=== PATIENT | male | born 1960 | race Hispanic/Latino ===

== ENCOUNTER 2018-06-01 17:47 | Emergency (ER) | payer OTHER ==
[2018-06-01] MEDS ORDERED: ONDANSETRON 4 MG/2 ML VIAL ONE (18:55)
[2018-06-01] MEDS ORDERED: FENTANYL CITR 100 MCG/2 ML ONE (18:55)
[2018-06-01 19:03] LABS: Absolute Lymphocytes (CBC) 1.5 K/uL (0.7-4.9); Absolute Monocytes 0.8 K/uL (0.1-1.3); Absolute Neutrophil 5.9 K/uL (1.8-8.0); Basophils % 0.8 % (0-1.3); Eosinophils % 1.7 % (0-4.4); Hematocrit 43.3 % (39.6-49.0); Lymphocytes % 17.9 % (15.3-44.8); MPV 7.4 fL (7.6-11.3); Monocytes % 9.9 % (3.3-12.3); RBC Red Blood Cell Count 4.99 M/uL (4.33-5.43)
--- NOTE | 2018-06-01 19:09 | RAD REPORT ---
EXAM DESCRIPTION: RAD - Chest Single View - 06/01/2018 6:52 pm CLINICAL HISTORY: Diffuse abdominal pain radiating to the back COMPARISON: CT imaging May 19. TECHNIQUE: AP portable chest image was obtained 1847 hour . FINDINGS: Lung volumes are low. Right base opacification is present obscuring the right hemidiaphrag m and the right heart border. Patient has right hemidiaphragm elevation. Right base opacification may be chronic atelectasis. A small pleural effusion is suspected. Heart size is normal. Widening in the mediastinum is noted. Reason CT study showed significant lymphadenopathy pattern in the abdomen and pelvis. This mediastinal finding is likely lymphadenopathy as well. No measurable pleural effusion an d no pneumothorax. No acute bony abnormality seen. No acute aortic findings suspected. IMPRESSION: Small right pleural effusion is suspected. Right lung base opacification could be chroni c atelectasis or minimal pneumonia. Mediastinal mass density present presumed to be lymphadenopathy pattern similar to the CT abdomen fransisca jean
[2018-06-01 19:13] LABS: Protime INR 1.07
[2018-06-01 19:35] LABS: Albumin 3.3 g/dL (3.4-5.0); Alkaline Phosphatase 743 U/L (45-117); BUN Blood Urea Nitrogen 13 mg/dL (7-18); Bicarbonate 28 mmol/L (21-32); Bilirubin Direct 5.1 mg/dL (0-0.2); Glucose Level 92 mg/dL (74-106); Magnesium 1.9 mg/dL (1.8-2.4); NT PRO-BNP 23 pg/mL (<125); Potassium 3.8 mmol/L (3.5-5.1); Protein, Total 7.1 g/dL (6.4-8.2); Sodium Level 135 mmol/L (136-145); Troponin (Emerg Dept Use Only) < 0.02 ng/mL (0.0-0.045)
[2018-06-01 19:38] LABS: ALT/SGPT 541 U/L (12-78); AST/SGOT 307 U/L (15-37)
[2018-06-01 19:39] LABS: Bilirubin Total 6.1 mg/dL (0.2-1.0)
--- NOTE | 2018-06-01 20:22 | RAD REPORT ---
EXAM DESCRIPTION: CT - Chest Abdomen Pelvis W Cont - 06/01/2018 8:00 pm CLINICAL HISTORY: Abdominal pain, chest pain, abnormal CT abdomen COMPARISON: CT abdomen and pelvis May 19 TECHNIQUE: Following dynamic enhancement using 100 milliliters nonionic IV contrast, axial imaging o f the chest, abdomen and pelvis was performed. Biphasic technique was utilized through the abdomen. No oral contrast was administered. All CT scans are performed using dose optimization technique as appropriate and may include automated exposure control or mA/KV adjustment according to patient size. FINDINGS: Stranding changes are present in the right lung base where there is also elevated right he midiaphragm. This is believed to be scarring or chronic atelectasis. Acute infiltrate is not suspecte d. Lung torres are otherwise clear. Minimal bilateral pleural effusions are present. No pneumothorax. No pleural based mass. Aorta and pulmonary arterial tree enhance normally. No pericardial thickening or effusion. Patient has very extensive individual and confluent mediastinal and hilar lymphadenopathy. Patient has lymphadenopathy in the right side pericardial fat as well. Largest confluent mass densit y is subcarinal measuring 6 x 3 cm. No chest wall mass or axillary lymphadenopathy. Multiple abnormal lymph nodes are present at the bilateral base of the neck. The liver, spleen and pancreas show no new finding from the May 19 study. Portions of the pancre as are obscured. No biliary tree dilatation. Gallbladder wall is edematous. Gallstones can be occult on CT imaging. Renal function is symmetric. No acute GB finding. No adrenal abnormalities. Stomach is distended by fluid. No gastric wall thickening or mass. No dilated large or small bowel. M ild diverticulosis is present. The primary acute GI process is not confirmed. Congestion and edema are present along the omentum. There is an overall congestion or edema pattern t o the peritoneal fat. Trace amount of free fluid is present in the peritoneal cavity. The very large bulky central mesenteric lymphadenopathy pattern is again identified. Overall mass density is larger than seen 2 weeks earlier. Margins are less well demarcated and this may be due to edema. Lymphadenop athy extends further around the head of the pancreas and periportal region. No history provided to in dicate initiation of therapy for this presumed lymphoma. The congestion and edema could be a therapeu tic response. No acute or destructive bony process. No significant vascular findings. IMPRESSION: CT chest imaging shows extensive mediastinal and hilar lymphadenopathy as well as signif icant lymphadenopathy at each neck base. Minimal pleural effusions are present. There is scarring or chronic atelectasis abutting the elevated right hemidiaphragm. The massive central abdominal lymphadenopathy has enlarged from the May 19 study. The individual and confluent lymph nodes are more edematous with poorly demarcated margins compared to the prior st udy. This is potentially a therapeutic response but no history is available to indicate whether any t herapy has been initiated. No bowel obstruction, free air or surgically emergent finding. Gallbladder wall edema without biliary tree dilatation. Gallstones and duct stones can be occult on C T imaging.
--- NOTE | 2018-06-01 21:59 | ER ---
Nurse's Notes [facility] Name: Jimbo Phipps Age: 57 yrs Sex: Male : 1960 Arrival Date: 06/01/2018 Time: 17:52 Bed 16 Private MD: Diagnosis: Acute and subacute hepatic failure;Lymphoma Presentation: 06/01 18:12 Presenting complaint: Patient states: Diffuse abdominal pain that radiates to back x 2 ph weeks and abdominal bloating, also reports nausea and some diarrhea, denies vomiting or fever. Transition of care: patient was not received from another setting of care. Onset of symptoms was June 01, 2018. Risk Assessment: Do you want to hurt yourself or someone else? Patient reports no desire to harm self or others. Care prior to arrival: None. 18:12 Method Of Arrival: Ambulatory ph 18:12 Acuity: ANTONIO 3 ph 18:15 Initial Sepsis Screen: Does the patient meet any 2 criteria? No. Patient's initial tw2 sepsis screen is negative. Does the patient have a suspected source of infection? No. Patient's initial sepsis screen is negative. Historical: - Allergies: 18:14 No Known Allergies; ph - Home Meds: 22:00 None [Active]; ak1 - PMHx: 22:00 None; ak1 - PSHx: 22:00 None; ak1 - Immunization history:: Adult Immunizations unknown. - Social history:: Smoking status: Patient/guardian denies using tobacco. - Ebola Screening: : No symptoms or risks identified at this time. Screenin:15 Abuse screen: Denies threats or abuse. Nutritional screening: No deficits noted. tw2 Tuberculosis screening: No symptoms or risk factors identified. Fall Risk None identified. Assessment: 18:27 General: Appears in no apparent distress. uncomfortable, Behavior is calm, cooperative, tw2 appropriate for age. Pain: Complains of pain in abdomen. Neuro: Level of Consciousness is awake, alert, obeys commands, Oriented to person, place, time, situation. Cardiovascular: Heart tones S1 S2 Patient's skin is warm and dry. Respiratory: Airway is patent Respiratory effort is even, unlabored, Respiratory pattern is regular, symmetrical, Breath sounds are clear bilaterally. GI: Abdomen is round distended, Bowel sounds present X 4 quads. Abd is soft X 4 quads Reports lower abdominal pain, upper abdominal pain. : No signs and/or symptoms were reported regarding the genitourinary system. 18:27 EENT: No signs and/or symptoms were reported regarding the EENT system. Derm: No signs tw2 and/or symptoms reported regarding the dermatologic system. Skin is jaundiced. Musculoskeletal: Circulation, motion, and sensation intact. Range of motion: intact in all extremities. 18:36 Reassessment: provider JESSE Jasso at bedside. tw2 19:38 Reassessment: laboratory staff gavin relayed critical laboratory ASt rr5 [id number],[id number],Total bili6.1. ED provider aware. 21:01 Reassessment: Patient appears in no apparent distress at this time. Patient and/or ls4 family updated on plan of care and expected duration. Pain level reassessed. PT RESTING QUIETLY, FAMILY AT BEDSIDE. 21:51 Reassessment: Patient appears in no apparent distress at this time. Patient and/or ls4 family updated on plan of care and expected duration. Pain level reassessed. pt ambulated independently to bathroom. gate steady. NAD. Vital Signs: 18:13 BP 155 / 102; Pulse 97; Resp 18; Temp 97.8; Pulse Ox 95% on R/A; Weight 79.38 kg; ph Height 5 ft. 3 in. (160.02 cm); 19:02 BP 156 / 99; Pulse 91; Resp 20; Pulse Ox 92% on R/A; tw2 20:20 BP 152 / 88; Pulse 92; Resp 16; Pulse Ox 96% on R/A; ls4 18:13 Body Mass Index 31.00 (79.38 kg, 160.02 cm) ph 19:02 pt placed on o2 via nc at 2L, o2 at 96%, tw2 ED Course: 17:52 Patient arrived in ED. mr 18:12 Bed in low position. Call light in reach. Pulse ox on. NIBP on. tw2 18:13 Triage completed. ph 18:14 Arm band placed on Patient placed in an exam room. ph 18:15 Linda Reynoso, TOMI is Primary Nurse. tw2 18:30 Balta Ponce MD is Attending Physician. ciera 18:37 Regino Ramos PA is PHCP. jr8 18:37 Balta Ponce MD is Attending Physician. jr8 18:42 Radiology exam delayed due to lab results not completed at this time. (BUN/Creatinine). 2 18:49 EKG done, by ED staff, reviewed by eRgino MOLINA. [facility] 18:53 Radiology exam delayed due to lab results not completed at this time. (BUN/Creatinine). nj 18:53 XRAY Chest (1 view) In Process Unspecified. EDMS 19:21 Radiology exam delayed due to lab results not completed at this time. (BUN/Creatinine). 2 19:26 Report given to TOMI Yuan. tw2 19:36 Radiology exam delayed due to lab results not completed at this time. (BUN/Creatinine). nj 19:[address] via stretcher. al 20:00 CT Chest, Abdomen, Pelvis - W/Contrast In Process Unspecified. EDMN 20:00 CT completed. Patient tolerated procedure well. Patient moved back from CT. al 21:59 No provider procedures requiring assistance completed. ak1 22:01 Inserted saline lock: 20 gauge in left antecubital area, using aseptic technique. ak1 ,using aseptic technique. placed prior to this nurse taking over care. 22:02 Patient transferred, IV remains in place. ak1 Administered Medications: 18:47 Drug: Zofran 4 mg Route: IVP; Site: left antecubital; tw2 19:25 Follow up: Response: No adverse reaction tw2 18:50 Drug: fentaNYL (PF) 75 mcg Route: IVP; Site: left antecubital; tw2 19:25 Follow up: Response: No adverse reaction; Pain is decreased tw2 Outcome: 21:59 ER care complete, transfer ordered by . [facility] 22:02 Condition: stable ak1 22:02 Instructed on the need for transfer. 22:34 Transferred by ground EMS to [facility], Transfer form completed. ak1 X-rays sent w/ patient. Note: report given to Ana Lilai the nurse for room 910 on 9 tower 23:07 Patient left the ED. ak1 Signatures: Dispatcher [employer] EDMS Balta Ponce MD MD cha Rivera, Lianne mr Jeanniebhanujoseph, JESSE Lacy jr8 Renee Cutler RN RN ak1 Jeni Valdez RN RN Linda Reynoso RN RN 2 Thom Lange Maria [facility] CoeIsabell lizarraga 2 Lissy Alcantar RN RN ls4 Davonte Cortez RN RN rr5 Corrections: (The following items were deleted from the chart) 19:04 18:27 General: Appears in no apparent distress. Behavior is calm, cooperative, tw2 appropriate for age, tw2 21:53 21:01 Reassessment: Patient appears in no apparent distress at this time. Patient ls4 and/or family updated on plan of care and expected duration. Pain level reassessed. Patient is alert, oriented x 3, equal unlabored respirations, skin warm/dry/pink. PT RESTING QUIETLY, FAMILY AT BEDSIDE ls4 21:53 21:51 Reassessment: Patient appears in no apparent distress at this time. Patient ls4 and/or family updated on plan of care and expected duration. Pain level reassessed. Patient is alert, oriented x 3, equal unlabored respirations, skin warm/dry/pink. ls4
--- NOTE | 2018-06-01 22:00 | EDPHYS ---
Physician Documentation [facility] Name: Jimbo Phipps Age: 57 yrs Sex: Male : 1960 Arrival Date: 06/01/2018 Time: 17:52 Bed 16 Private MD: ED Physician Balta Ponce HPI: 06/01 19:24 This 57 yrs old Male presents to ER via Ambulatory with complaints of jr8 Abdominal Swelling. 19:24 Onset: The symptoms/episode began/occurred gradually, 2 week(s) ago. The symptoms do jr8 not radiate. Associated signs and symptoms: none. The symptoms are described as dull. Modifying factors: The symptoms are alleviated by nothing, the symptoms are aggravated by nothing. Severity of pain: At its worst the pain was moderate in the emergency department the pain is unchanged. The patient has not experienced similar symptoms in the past. The patient has been recently seen by a physician:. Patient stated that he has had abdominal pain for the past couple of weeks. Stated that he was seen by GI and had CT abd/pelvis with contrast completed. Unknown what results are but brought report for us to read. Stated that they have not told him anything yet. Had endoscopy a week later showing gastritis. Scheduled for colonoscopy next week. Stated that pain is getting worse along with distension . Historical: - Allergies: 18:14 No Known Allergies; ph - Home Meds: 22:00 None [Active]; ak1 - PMHx: 22:00 None; ak1 - PSHx: 22:00 None; ak1 - Immunization history:: Adult Immunizations unknown. - Social history:: Smoking status: Patient/guardian denies using tobacco. - Ebola Screening: : No symptoms or risks identified at this time. ROS: 19:24 Eyes: Negative for injury, pain, redness, and discharge, ENT: Negative for injury, jr8 pain, and discharge, Neck: Negative for injury, pain, and swelling, Cardiovascular: Negative for chest pain, palpitations, and edema, Respiratory: Negative for shortness of breath, cough, wheezing, and pleuritic chest pain, Back: Negative for injury and pain, MS/Extremity: Negative for injury and deformity, Skin: Negative for injury, rash, and discoloration, Neuro: Negative for headache, weakness, numbness, tingling, and seizure. 19:24 Abdomen/GI: Positive for abdominal pain, abdominal distension, Negative for nausea, vomiting, and diarrhea, constipation, anorexia, dysphagia, hematemesis, black/tarry stool, rectal pain, rectal bleeding, bowel incontinence, flatulence. Exam: 19:24 Head/Face: Normocephalic, atraumatic. ENT: Nares patent. No nasal discharge, no jr8 septal abnormalities noted. Tympanic membranes are normal and external auditory canals are clear. Oropharynx with no redness, swelling, or masses, exudates, or evidence of obstruction, uvula midline. Mucous membranes moist. Neck: Trachea midline, no thyromegaly or masses palpated, and no cervical lymphadenopathy. Supple, full range of motion without nuchal rigidity, or vertebral point tenderness. No Meningismus. Cardiovascular: Regular rate and rhythm with a normal S1 and S2. No gallops, murmurs, or rubs. Normal PMI, no JVD. No pulse deficits. Respiratory: Lungs have equal breath sounds bilaterally, clear to auscultation and percussion. No rales, rhonchi or wheezes noted. No increased work of breathing, no retractions or nasal flaring. Back: No spinal tenderness. No costovertebral tenderness. Full range of motion. Skin: Warm, dry with normal turgor. Normal color with no rashes, no lesions, and no evidence of cellulitis. MS/ Extremity: Pulses equal, no cyanosis. Neurovascular intact. Full, normal range of motion. Neuro: Awake and alert, GCS 15, oriented to person, place, time, and situation. Cranial nerves II-XII grossly intact. Motor strength 5/5 in all extremities. Sensory grossly intact. Cerebellar exam normal. Normal gait. 19:24 Eyes: Periorbital structures: appear normal, Pupils: equal, round, and reactive to light and accomodation, Extraocular movements: intact throughout, Conjunctiva: normal, Corneas: are normal, Sclera: icterus, is present, Anterior chamber: normal, Lids and lashes: appear normal. 19:24 Abdomen/GI: Inspection: distension, Bowel sounds: active, all quadrants, Palpation: soft, in all quadrants, mild abdominal tenderness, in the abdomen diffusely, Indicators: McBurney's point is not tender, Isbell's sign is negative, Rovsing's sign is negative, Liver: tenderness, is not appreciated. Vital Signs: 18:13 BP 155 / 102; Pulse 97; Resp 18; Temp 97.8; Pulse Ox 95% on R/A; Weight 79.38 kg; ph Height 5 ft. 3 in. (160.02 cm); 19:02 BP 156 / 99; Pulse 91; Resp 20; Pulse Ox 92% on R/A; tw2 20:20 BP 152 / 88; Pulse 92; Resp 16; Pulse Ox 96% on R/A; ls4 18:13 Body Mass Index 31.00 (79.38 kg, 160.02 cm) ph 19:02 pt placed on o2 via nc at 2L, o2 at 96%, tw2 MDM: 18:30 Patient medically screened. ciera 21:17 Data reviewed: vital signs, nurses notes, lab test result(s), radiologic studies, CT jr scan, plain films. Data interpreted: Pulse oximetry: on room air is 96 %. Interpretation: normal. Counseling: I had a detailed discussion with the patient and/or guardian regarding: the historical points, exam findings, and any diagnostic results supporting the discharge/admit diagnosis, lab results, radiology results, the need to transfer to another facility, for higher level of care, [facility] does not immediately have the required specialist. 21:57 ED course: Dr. Wallace from [facility] consulted along with GI and Oncology . 06/01 18:38 Order name: Basic Metabolic Panel; Complete Time: 19:41 06/01 18:38 Order name: CBC with Diff; Complete Time: 19:23 06/01 18:38 Order name: LFT's; Complete Time: 19:41 06/01 18:38 Order name: Magnesium; Complete Time: 19:41 06/01 18:38 Order name: NT PRO-BNP; Complete Time: 19:41 06/01 18:38 Order name: PT-INR; Complete Time: 19:23 06/01 18:38 Order name: Troponin (emerg Dept Use Only); Complete Time: 19:41 06/01 18:38 Order name: XRAY Chest (1 view); Complete Time: 19:23 06/01 18:38 Order name: EKG; Complete Time: 18:38 06/01 18:38 Order name: Cardiac monitoring; Complete Time: 18:41 06/01 18:38 Order name: EKG - Nurse/Tech; Complete Time: 18:41 06/01 18:38 Order name: CT Chest, Abdomen, Pelvis - W/Contrast; Complete Time: 21:05 06/01 18:38 Order name: IV Saline Lock; Complete Time: 19:02 06/01 18:38 Order name: Labs collected and sent; Complete Time: 19:02 06/01 18:38 Order name: O2 Per Protocol; Complete Time: 18:41 06/01 18:38 Order name: O2 Sat Monitoring; Complete Time: 18:41 Administered Medications: 18:47 Drug: Zofran 4 mg Route: IVP; Site: left antecubital; tw2 19:25 Follow up: Response: No adverse reaction tw2 18:50 Drug: fentaNYL (PF) 75 mcg Route: IVP; Site: left antecubital; tw2 19:25 Follow up: Response: No adverse reaction; Pain is decreased tw2 Disposition: 06/01/18 21:[address] [facility]. Diagnosis are Acute and subacute hepatic failure, Lymphoma . - Reason for transfer: Higher level of care. - Accepting physician is Dr. Wallace. - Condition is Fair. - Problem is new. - Symptoms are unchanged. Signatures: Dispatcher [employer] EDBalta Us MD MD cha Roszak, Josh, PA PA jr8 Renee Cutler RN RN ak1 Jeni Valdez RN RN Linda Reynoso RN RN tw2 Corrections: (The following items were deleted from the chart) 23:07 21:59 06/01/2018 21:[address] [facility]. Diagnosis is ak1 Acute and subacute hepatic failure; Lymphoma . Reason for transfer: Higher level of care. Accepting physician is Dr. Wallace. Condition is Fair. Problem is new. Symptoms are unchanged. jr8
--- NOTE | 2018-06-02 06:57 | EKG ---
Test Date: 2018-06-01 Test Time: 18:25:05 Prekindergarten Teacher: DIAMOND MEASUREMENT RESULTS: Intervals: Rate: 85 CA: 124 QRSD: 82 QT: 360 QTc: 428 [place]: P: 54 CA: 124 QRS: 31 T: 28 INTERPRETIVE STATEMENTS: Normal sinus rhythm Normal ECG No previous ECG available for comparison Electronically Signed On 06-02-18 06:55:58 ACID TENDER by Magdy Larsen
== END 2018-06-01 23:07 | disposition short-term general hospital (02) ==
LOC: ER 17:47
DX: K72.00 Acute and subacute hepatic failure without coma (principal); C85.90 Non-Hodgkin lymphoma, unspecified, unspecified site
CPT/HCPCS: 36415; 71045; 71260; 74177; 80048; 80076; 83735; 83880; 84484; 85025; 85610; 93005; J2405; J3010; Q9967

== ENCOUNTER 2018-07-18 18:12 | Inpatient (IN) | payer OTHER ==
--- OUTSIDE RECORDS SUMMARY | 2018-07-18 18:18 | XMS REPORT | Clinical Summary ---
:[address] [facility] Address [address] [place] [address] Care Team Providers Name Role Phone Unavailable Primary Care Provider Unavailable Allergies No Known Allergies Medications Medication Sig Dispensed Refills Start End Date Status Date amLODIPine Take 1 tablet (5 90 tablet 0 06/17/19 Active (NORVASC) 5 MG mg total) by mouth 9 20 tablet daily. entecavir Take 1 tablet (0.5 90 tablet 0 06/18/19 Active (BARACLUDE) 0.5 MG mg total) by mouth 9 20 tablet daily. folic acid Take 1 tablet (1 90 tablet 0 06/18/19 Active (FOLVITE) 1 MG mg total) by mouth 9 20 tablet daily. pantoprazole Take 1 tablet (40 90 tablet 0 Active (PROTONIX) 40 MG mg total) by mouth 9 tablet daily. allopurinol Take 1 tablet (300 30 tablet 0 06/18/19 Active (ZYLOPRIM) 300 MG mg total) by mouth 9 20 tablet daily. thiamine (VITAMIN Take 1 tablet (50 30 tablet 3 07/14/19 Active B-1) 50 MG tablet mg total) by mouth 9 20 daily. ciprofloxacin HCl Take 1 tablet (500 28 tablet 0 07/28/19 Active (CIPRO) 500 MG mg total) by mouth 9 19 tablet 2 (two) times daily for 14 days. acyclovir Take 1 tablet (400 28 tablet 0 07/28/19 Active (ZOVIRAX) 400 MG mg total) by mouth 9 19 tablet 2 (two) times daily for 14 days. fluconazole Take 2 tablets 28 tablet 0 07/28/19 Active (DIFLUCAN) 200 MG (400 mg total) by 9 19 tablet mouth daily for 14 days. ondansetron Take 2 tablets (8 30 tablet 1 07/29/19 Active (ZOFRAN) 4 MG mg total) by mouth 9 19 tablet 2 (two) times daily as needed for Nausea for up to 15 days. omeprazole Take 40 mg by 0 07/07/19 Discontinued (PRILOSEC) 40 MG mouth daily. 19 capsule docusate (COLACE) Take 10 mLs (100 100 mL 0 06/28/19 50 mg/5 mL liquid mg total) by mouth 9 19 2 (two) times daily for 10 days. mirtazapine Take 1 tablet (7.5 30 tablet 0 07/06/19 Discontinued (REMERON) 7.5 MG mg total) by mouth 9 19 tablet nightly for 30 days. potassium, sodium Take 1 packet by 12 packet 0 06/21/19 phosphates mouth 4 (four) 9 19 (PHOS-NAK) times daily with 280-160-250 mg meals and nightly PwPk packet for 3 days. ciprofloxacin HCl Take 1 tablet (500 28 tablet 0 07/02/19 (CIPRO) 500 MG mg total) by mouth 9 19 tablet 2 (two) times daily for 14 days. acyclovir Take 2 capsules 56 capsule 0 07/02/19 (ZOVIRAX) 200 MG (400 mg total) by 9 19 capsule mouth 2 (two) times daily for 14 days. HYDROcodone-acetam Take 1 tablet by 30 tablet 0 06/28/19 inophen (NORCO mouth every 6 9 19 5-325) 5-325 mg (six) hours as per tablet needed for Pain for up to 10 days. Max Daily Amount: 4 tablets bisacodyl Take 2 tablets (10 60 tablet 0 07/06/19 Discontinued (DULCOLAX) 5 mg EC mg total) by mouth 9 19 tablet daily as needed for Constipation for up to 30 days. polyethylene Take 17 g by mouth 255 g 0 07/06/19 Discontinued glycol (GLYCOLAX) daily for 30 days. 9 19 17 gram/dose powder potassium chloride Take 1 tablet (20 14 tablet 0 06/25/19 SA mEq total) by 9 19 (K-DUR,KLOR-CON) mouth 2 (two) 20 MEQ tablet times daily for 7 days. ondansetron Take 1 tablet (4 30 tablet 0 06/25/19 (ZOFRAN) 4 MG mg total) by mouth 9 19 tablet every 4 (four) hours as needed for Nausea for up to 7 days. acyclovir Take 400 mg by 0 07/07/19 Discontinued (ZOVIRAX) 400 MG mouth 2 (two) 19 tablet times daily. esomeprazole Take 20 mg by 0 07/07/19 Discontinued (NEXIUM) 20 MG mouth daily. 19 capsule pegfilgrastim Inject 0.6 mLs (6 0.6 mL 5 07/14/19 (NEULASTA) 6 mg total) 9 19 mg/0.6mL injection subcutaneously once for 1 dose. Active Problems Problem Noted Date Hypokalemia 07/13/2018 Pleural effusion on right 07/13/2018 Diffuse large B-cell lymphoma of intra-abdominal lymph nodes 07/07/2018 High grade B-cell lymphoma 07/07/2018 Moderate protein-calorie malnutrition 07/07/2018 Obstructive jaundice 06/02/2018 Encounters Date Type Specialty Care Team Description 07/07/2018 Hospital Oncology Roseanne Davies, Diffuse large B-cell lymphoma of intra-abdominal lymph nodes (HCC); - Encounter High grade B-cell lymphoma (HCC); 07/13/2018 Enrico Mckeon Moderate protein-calorie malnutrition (HCC); MD Callie Obstructive jaundice; Sanya Hansen Pleural effusion; Parviz TABARES MD Weight loss; Loculated pleural effusion; Admission for antineoplastic chemotherapy; Chemotherapy management, encounter for; Hypokalemia; Hyponatremia; Slow transit constipation 07/07/2018 Travel 07/07/2018 Orders Only Internal Medicine Roseanne Davies MD 07/06/2018 Anesthesia Event Gastroenterology Pierre Elkins MD 07/06/2018 [facility] Gastroenterology Kathy Adams Encounter Angie Stanton MD 07/05/2018 [facility] Pre-Admission Testing Resource, [facility] Encounter Preadmit Phone 07/01/2018 [facility] Radiology HadleyPepperLeo Diffuse large b-cell Encounter MD Hank lymphoma, intra-abdominal lymph nodes (HCC) 07/01/2018 Outside Orders Central Scheduling Leo Hadleycell MD Hank lymphoma, intra-abdominal lymph nodes (HCC) (Primary Dx) 07/01/2018 Outside Orders Central Scheduling Leo Hadley MD 06/30/2018 [facility] Radiology Hadley, Leo Diffuse large B-cell Encounter MD Hank lymphoma of intra-abdominal lymph nodes (HCC) 06/30/2018 Outside Orders Central Scheduling Leo Hadley BArgeliacell MD Hank lymphoma of intra-abdominal lymph nodes (HCC) (Primary Dx) 06/07/2018 Anesthesia Event Paolo Lemus MD 06/07/2018 Surgery Virtual, Surgeon ANGIOGRAM,CEREBRAL 06/07/2018 Orders Only General Internal Medicine 06/04/2018 Travel 06/03/2018 Surgery Gastroenterology Henry Reyes UPPER ENDOSCOPY,FNA MD Alan W/ULTRASOUND 06/03/2018 Anesthesia Event Gastroenterology Cecilio Doss MD 06/02/2018 [facility] Oncology Brann, Obstructive jaundice; - Encounter Ashok Mediastinal lymphadenopathy; 06/17/2018 MD Josiah Intra-abdominal lymphadenopathy; Asuncion Plata, Diffuse large B-cell lymphoma, unspecified body region ( HCC); Chemotherapy follow-up examination Ricarda Chance MD Waheed, Umar, MD after 07/17/2017 Family History Medical History Relation Name Comments Pancreatic cancer Brother Relation Name Status Comments Brother Social History Tobacco Use Types Packs/Day Years Used Date Never Smoker Smokeless Tobacco: Never Used Tobacco Cessation: Counseling Given: No Alcohol Use Drinks/Week oz/Week Comments No Alcohol Habits Answer Date Recorded How often do you have a drink containing alcohol? Never 07/05/2018 How many drinks containing alcohol do you have on a typical Not asked day when you are drinking? How often do you have six or more drinks on one occasion? Not asked Sex Assigned at Date Recorded Not on file Job Start Date Occupation Industry Not on file Not on file Not on file Travel History Travel Start Travel End No recent travel history available. Last Filed Vital Signs Vital Sign Reading Time Taken Blood Pressure 129/80 07/13/2018 7:00 AM CDT Pulse 76 07/13/2018 7:00 AM CDT Temperature 36.4 C (97.6 F) 07/13/2018 7:00 AM CDT Respiratory Rate 18 07/13/2018 7:00 AM CDT Oxygen Saturation 94% 07/13/2018 7:00 AM CDT Inhaled Oxygen Concentration 21% 07/09/2018 3:24 AM CDT Weight 66.7 kg (147 lb 1.6 oz) 07/07/2018 2:00 PM CDT Height 162.6 cm (5' 4") 07/07/2018 2:00 PM CDT Body Mass Index 25.25 07/07/2018 2:00 PM CDT Plan of Treatment Not on file Implants Implanted Type Area Vaccine Specialist Device Shelf Model / Serial Identifier Expiration / Lot Date Stent Panc Advx St [id number] - Sgtin [id number] Stents N/A: [place] 06/15/2019 3639 / Implanted: Qty: 1 on 06/03/2018 by Henry Reyes MD -Perip Pancreas SCI:ENDO GTIN [id number] / heral [id number] Procedures Procedure Name Priority Date/Time Associated Comments Diagnosis CBC W/PLT COUNT & AUTO Routine 07/13/2018 4:16 Results for this DIFFERENTIAL AM CDT procedure are in the results section. HEPATIC FUNCTION PANEL Routine 07/13/2018 4:16 Results for this AM CDT procedure are in the results section. BASIC METABOLIC PANEL Routine 07/13/2018 4:16 Results for this (7) AM CDT procedure are in the results section. PHOSPHORUS Routine 07/13/2018 4:16 Results for this AM CDT procedure are in the results section. MAGNESIUM Routine 07/13/2018 4:16 Results for this AM CDT procedure are in the results section. LACTATE DEHYDROGENASE Routine 07/13/2018 4:16 Results for this (LDH) AM CDT procedure are in the results section. URIC ACID Routine 07/13/2018 4:16 Results for this AM CDT procedure are in the results section. CBC W/PLT COUNT & AUTO Routine 07/13/2018 4:16 Results for this DIFFERENTIAL AM CDT procedure are in the results section. RHYTHM STRIP - SCAN 07/12/2018 10:42 AM CDT CBC W/PLT COUNT & AUTO Routine 07/12/2018 5:07 Results for this DIFFERENTIAL AM CDT procedure are in the results section. HEPATIC FUNCTION PANEL Routine 07/12/2018 5:07 Results for this AM CDT procedure are in the results section. BASIC METABOLIC PANEL Routine 07/12/2018 5:07 Results for this (7) AM CDT procedure are in the results section. PHOSPHORUS Routine 07/12/2018 5:07 Results for this AM CDT procedure are in the results section. MAGNESIUM Routine 07/12/2018 5:07 Results for this AM CDT procedure are in the results section. LACTATE DEHYDROGENASE Routine 07/12/2018 5:07 Results for this (LDH) AM CDT procedure are in the results section. URIC ACID Routine 07/12/2018 5:07 Results for this AM CDT procedure are in the results section. CBC W/PLT COUNT & AUTO Routine 07/12/2018 5:07 Results for this DIFFERENTIAL AM CDT procedure are in the results section. CBC W/PLT COUNT & AUTO Routine 07/11/2018 4:40 Results for this DIFFERENTIAL AM CDT procedure are in the results section. HEPATIC FUNCTION PANEL Routine 07/11/2018 4:40 Results for this AM CDT procedure are in the results section. BASIC METABOLIC PANEL Routine 07/11/2018 4:40 Results for this (7) AM CDT procedure are in the results section. PHOSPHORUS Routine 07/11/2018 4:40 Results for this AM CDT procedure are in the results section. MAGNESIUM Routine 07/11/2018 4:40 Results for this AM CDT procedure are in the results section. LACTATE DEHYDROGENASE Routine 07/11/2018 4:40 Results for this (LDH) AM CDT procedure are in the results section. URIC ACID Routine 07/11/2018 4:40 Results for this AM CDT procedure are in the results section. CBC W/PLT COUNT & AUTO Routine 07/11/2018 4:40 Results for this DIFFERENTIAL AM CDT procedure are in the results section. CBC W/PLT COUNT & AUTO Routine 07/10/2018 5:36 Results for this DIFFERENTIAL AM CDT procedure are in the results section. HEPATIC FUNCTION PANEL Routine 07/10/2018 5:36 Results for this AM CDT procedure are in the results section. BASIC METABOLIC PANEL Routine 07/10/2018 5:36 Results for this (7) AM CDT procedure are in the results section. PHOSPHORUS Routine 07/10/2018 5:36 Results for this AM CDT procedure are in the results section. MAGNESIUM Routine 07/10/2018 5:36 Results for this AM CDT procedure are in the results section. LACTATE DEHYDROGENASE Routine 07/10/2018 5:36 Results for this (LDH) AM CDT procedure are in the results section. URIC ACID Routine 07/10/2018 5:36 Results for this AM CDT procedure are in the results section. CBC W/PLT COUNT & AUTO Routine 07/10/2018 5:36 Results for this DIFFERENTIAL AM CDT procedure are in the results section. CBC W/PLT COUNT & AUTO Routine 07/09/2018 4:48 Results for this DIFFERENTIAL AM CDT procedure are in the results section. HEPATIC FUNCTION PANEL Routine 07/09/2018 4:48 Results for this AM CDT procedure are in the results section. BASIC METABOLIC PANEL Routine 07/09/2018 4:48 Results for this (7) AM CDT procedure are in the results section. PHOSPHORUS Routine 07/09/2018 4:48 Results for this AM CDT procedure are in the results section. MAGNESIUM Routine 07/09/2018 4:48 Results for this AM CDT procedure are in the results section. LACTATE DEHYDROGENASE Routine 07/09/2018 4:48 Results for this (LDH) AM CDT procedure are in the results section. URIC ACID Routine 07/09/2018 4:48 Results for this AM CDT procedure are in the results section. CBC W/PLT COUNT & AUTO Routine 07/09/2018 4:48 Results for this DIFFERENTIAL AM CDT procedure are in the results section. FL GUIDED LUMBAR CHARLES 07/08/2018 1:07 Results for this PUNCTURE DIAG PM CDT procedure are in the results section. IR PORT-A-CATH STAT 07/08/2018 9:35 Results for this PLACEMENT AM CDT procedure are in the results section. CBC W/PLT COUNT & AUTO Routine 07/08/2018 6:17 Results for this DIFFERENTIAL AM CDT procedure are in the results section. HEPATIC FUNCTION PANEL Routine 07/08/2018 6:17 Results for this AM CDT procedure are in the results section. BASIC METABOLIC PANEL Routine 07/08/2018 6:17 Results for this (7) AM CDT procedure are in the results section. PHOSPHORUS Routine 07/08/2018 6:17 Results for this AM CDT procedure are in the results section. MAGNESIUM Routine 07/08/2018 6:17 Results for this AM CDT procedure are in the results section. LACTATE DEHYDROGENASE Routine 07/08/2018 6:17 Results for this (LDH) AM CDT procedure are in the results section. URIC ACID Routine 07/08/2018 6:17 Results for this AM CDT procedure are in the results section. CBC W/PLT COUNT & AUTO Routine 07/08/2018 6:17 Results for this DIFFERENTIAL AM CDT procedure are in the results section. XR CHEST 2 VIEWS Routine 07/07/2018 9:15 Results for this PM CDT procedure are in the results section. CBC W/PLT COUNT & AUTO Routine 07/07/2018 11:46 Results for this DIFFERENTIAL AM CDT procedure are in the results section. PT/APTT Routine 07/07/2018 11:46 Results for this AM CDT procedure are in the results section. URIC ACID Routine 07/07/2018 11:46 Results for this AM CDT procedure are in the results section. LACTATE DEHYDROGENASE Routine 07/07/2018 11:46 Results for this (LDH) AM CDT procedure are in the results section. CBC W/PLT COUNT & AUTO Routine 07/07/2018 11:46 Results for this DIFFERENTIAL AM CDT procedure are in the results section. COMPREHENSIVE Routine 07/07/2018 11:46 Results for this METABOLIC PANEL AM CDT procedure are in the results section. PROCEDURE W/ C-ARM 07/06/2018 8:30 Obstructive AM CDT jaundice Special Needs (C-ARM) ERCP 07/06/2018 8:30 AM CDT Obstructive jaundice Special Needs (C-ARM) XR CHEST 1 VIEW STAT 07/01/2018 4:43 Results for this PORTABLE/BEDSIDE PM CDT procedure are in the results section. US THORACENTESIS Routine 07/01/2018 3:55 Diffuse large Results for this PM CDT b-cell lymphoma, procedure are in intra-abdominal the results lymph nodes section. (HCC) PROTHROMBIN TIME/INR Routine 07/01/2018 1:38 Diffuse large Results for this PM CDT b-cell lymphoma, procedure are in intra-abdominal the results lymph nodes section. (HCC) APTT Routine 07/01/2018 1:38 Diffuse large Results for this PM CDT b-cell lymphoma, procedure are in intra-abdominal the results lymph nodes section. (HCC) XR CHEST 2 VIEWS Routine 06/30/2018 1:11 Diffuse large Results for this PM CDT B-cell lymphoma procedure are in of the results intra-abdominal section. lymph nodes (HCC) REPORT OF PROCEDURE - 06/21/2018 10:24 ENDOSCOPY SCAN AM CDT RHYTHM STRIP - SCAN 06/21/2018 10:24 AM CDT (CELLAVISION MANUAL STAT 06/17/2018 10:13 Results for this DIFF) AM CDT procedure are in the results section. CBC W/PLT COUNT & AUTO STAT 06/17/2018 10:13 Results for this DIFFERENTIAL AM CDT procedure are in the results section. CBC W/PLT COUNT & AUTO STAT 06/17/2018 10:13 Results for this DIFFERENTIAL AM CDT procedure are in the results section. CALCIUM, IONIZED STAT 06/17/2018 10:13 Results for this AM CDT procedure are in the results section. BASIC METABOLIC PANEL Add-On 06/17/2018 4:30 Results for this (7) AM CDT procedure are in the results section. MAGNESIUM Routine 06/17/2018 4:30 Results for this AM CDT procedure are in the results section. URIC ACID Routine 06/17/2018 4:30 Results for this AM CDT procedure are in the results section. PHOSPHORUS Routine 06/17/2018 4:30 Results for this AM CDT procedure are in the results section. BASIC METABOLIC PANEL Routine 06/16/2018 7:05 Results for this (7) PM CDT procedure are in the results section. FL UPPER GI W SMALL STAT 06/16/2018 5:00 Results for this BOWEL & KUB PM CDT procedure are in the results section. (CELLAVISION MANUAL Routine 06/16/2018 4:08 Results for this DIFF) AM CDT procedure are in the results section. CBC W/PLT COUNT & AUTO Routine 06/16/2018 4:08 Results for this DIFFERENTIAL AM CDT procedure are in the results section. MAGNESIUM Routine 06/16/2018 4:08 Results for this AM CDT procedure are in the results section. BILIRUBIN, DIRECT Routine 06/16/2018 4:08 Results for this AM CDT procedure are in the results section. CBC W/PLT COUNT & AUTO Routine 06/16/2018 4:08 Results for this DIFFERENTIAL AM CDT procedure are in the results section. COMPREHENSIVE METABOLIC Routine 06/16/2018 4:08 Results for this PANEL AM CDT procedure are in the results section. PHOSPHORUS Routine 06/16/2018 4:08 Results for this AM CDT procedure are in the results section. LACTATE DEHYDROGENASE Routine 06/16/2018 4:08 Results for this (LDH) AM CDT procedure are in the results section. URIC ACID Routine 06/16/2018 4:08 Results for this AM CDT procedure are in the results section. IR PERCUTANEOUS Routine 06/15/2018 8:45 Results for this CHOLANGIOGRAM PM CDT procedure are in the results section. (CELLAVISION MANUAL Routine 06/15/2018 4:28 Results for this DIFF) AM CDT procedure are in the results section. CBC W/PLT COUNT & AUTO Routine 06/15/2018 4:28 Results for this DIFFERENTIAL AM CDT procedure are in the results section. CBC W/PLT COUNT & AUTO Routine 06/15/2018 4:28 Results for this DIFFERENTIAL AM CDT procedure are in the results section. COMPREHENSIVE METABOLIC Routine 06/15/2018 4:28 Results for this PANEL AM CDT procedure are in the results section. PHOSPHORUS Routine 06/15/2018 4:28 Results for this AM CDT procedure are in the results section. LACTATE DEHYDROGENASE Routine 06/15/2018 4:28 Results for this (LDH) AM CDT procedure are in the results section. URIC ACID Routine 06/15/2018 4:28 Results for this AM CDT procedure are in the results section. CBC W/PLT COUNT & AUTO Routine 06/14/2018 4:20 Results for this DIFFERENTIAL AM CDT procedure are in the results section. CBC W/PLT COUNT & AUTO Routine 06/14/2018 4:20 Results for this DIFFERENTIAL AM CDT procedure are in the results section. COMPREHENSIVE METABOLIC Routine 06/14/2018 4:20 Results for this PANEL AM CDT procedure are in the results section. PHOSPHORUS Routine 06/14/2018 4:20 Results for this AM CDT procedure are in the results section. LACTATE DEHYDROGENASE Routine 06/14/2018 4:20 Results for this (LDH) AM CDT procedure are in the results section. URIC ACID Routine 06/14/2018 4:20 Results for this AM CDT procedure are in the results section. CBC W/PLT COUNT & AUTO Routine 06/13/2018 4:13 Results for this DIFFERENTIAL AM CDT procedure are in the results section. CBC W/PLT COUNT & AUTO Routine 06/13/2018 4:13 Results for this DIFFERENTIAL AM CDT procedure are in the results section. COMPREHENSIVE METABOLIC Routine 06/13/2018 4:13 Results for this PANEL AM CDT procedure are in the results section. PHOSPHORUS Routine 06/13/2018 4:13 Results for this AM CDT procedure are in the results section. LACTATE DEHYDROGENASE Routine 06/13/2018 4:13 Results for this (LDH) AM CDT procedure are in the results section. URIC ACID Routine 06/13/2018 4:13 Results for this AM CDT procedure are in the results section. CBC W/PLT COUNT & AUTO Routine 06/12/2018 4:59 Results for this DIFFERENTIAL AM INSOLE BEVELER procedure are in the results section. VITAMIN B12 AND FOLATE Routine 06/12/2018 4:59 Results for this AM INSOLE BEVELER procedure are in the results section. TSH/FREE T4 IF INDICATED Routine 06/12/2018 4:59 Results for this AM INSOLE BEVELER procedure are in the results section. FERRITIN Routine 06/12/2018 4:59 Results for this AM INSOLE BEVELER procedure are in the results section. IRON, TIBC, % SAT. Routine 06/12/2018 4:59 Results for this (WITHOUT FERRITIN) AM INSOLE BEVELER procedure are in the results section. CBC W/PLT COUNT & AUTO Routine 06/12/2018 4:59 Results for this DIFFERENTIAL AM INSOLE BEVELER procedure are in the results section. COMPREHENSIVE METABOLIC Routine 06/12/2018 4:59 Results for this PANEL AM INSOLE BEVELER procedure are in the results section. PHOSPHORUS Routine 06/12/2018 4:59 Results for this AM INSOLE BEVELER procedure are in the results section. LACTATE DEHYDROGENASE Routine 06/12/2018 4:59 Results for this (LDH) AM INSOLE BEVELER procedure are in the results section. URIC ACID Routine 06/12/2018 4:59 Results for this AM INSOLE BEVELER procedure are in the results section. FL GUIDED LUMBAR Routine 06/11/2018 2:14 Results for this PUNCTURE DIAG PM INSOLE BEVELER procedure are in the results section. PROTEIN, CSF Routine 06/11/2018 2:10 Results for this PM INSOLE BEVELER procedure are in the results section. FLOW CYTOMETRY Routine 06/11/2018 2:08 Results for this REQUISITION PM INSOLE BEVELER procedure are in the results section. FLOW CYTOMETRY Routine 06/11/2018 2:01 Results for this PM INSOLE BEVELER procedure are in the results section. CYTOLOGY AP Routine 06/11/2018 2:01 Results for this PM INSOLE BEVELER procedure are in the results section. PROTHROMBIN TIME/INR Routine 06/11/2018 10:35 Results for this AM INSOLE BEVELER procedure are in the results section. (CELLAVISION MANUAL Routine 06/11/2018 4:29 Results for this DIFF) AM INSOLE BEVELER procedure are in the results section. CBC W/PLT COUNT & AUTO Routine 06/11/2018 4:29 Results for this DIFFERENTIAL AM INSOLE BEVELER procedure are in the results section. CBC W/PLT COUNT & AUTO Routine 06/11/2018 4:29 Results for this DIFFERENTIAL AM INSOLE BEVELER procedure are in the results section. PHOSPHORUS Routine 06/11/2018 4:29 Results for this AM INSOLE BEVELER procedure are in the results section. LACTATE DEHYDROGENASE Routine 06/11/2018 4:29 Results for this (LDH) AM INSOLE BEVELER procedure are in the results section. URIC ACID Routine 06/11/2018 4:29 Results for this AM INSOLE BEVELER procedure are in the results section. COMPREHENSIVE METABOLIC Routine 06/11/2018 4:29 Results for this PANEL AM INSOLE BEVELER procedure are in the results section. CBC W/PLT COUNT & AUTO Routine 06/10/2018 5:47 Results for this DIFFERENTIAL AM INSOLE BEVELER procedure are in the results section. CBC W/PLT COUNT & AUTO Routine 06/10/2018 5:47 Results for this DIFFERENTIAL AM INSOLE BEVELER procedure are in the results section. CBC W/PLT COUNT & AUTO Routine 06/10/2018 5:47 Results for this DIFFERENTIAL AM INSOLE BEVELER procedure are in the results section. CBC W/PLT COUNT & AUTO Routine 06/10/2018 5:47 Results for this DIFFERENTIAL AM INSOLE BEVELER procedure are in the results section. PHOSPHORUS Routine 06/10/2018 5:47 Results for this AM INSOLE BEVELER procedure are in the results section. LACTATE DEHYDROGENASE Routine 06/10/2018 5:47 Results for this (LDH) AM INSOLE BEVELER procedure are in the results section. URIC ACID Routine 06/10/2018 5:47 Results for this AM INSOLE BEVELER procedure are in the results section. COMPREHENSIVE METABOLIC Routine 06/10/2018 5:47 Results for this PANEL AM INSOLE BEVELER procedure are in the results section. HEPATITIS B PCR, Routine 06/09/2018 8:23 Results for this QUANTITATIVE PM INSOLE BEVELER procedure are in the results section. MAGNESIUM Routine 06/09/2018 8:23 Results for this PM INSOLE BEVELER procedure are in the results section. MAGNESIUM CHARLES 06/09/2018 8:23 Results for this PM INSOLE BEVELER procedure are in the results section. XR ABDOMEN 1 VIEW STAT 06/09/2018 5:00 Results for this PM INSOLE BEVELER procedure are in the results section. XR CHEST 1 VIEW STAT 06/09/2018 1:16 Results for this PORTABLE/BEDSIDE PM INSOLE BEVELER procedure are in the results section. XR ABDOMEN 1 VIEW STAT 06/09/2018 11:09 Results for this AM INSOLE BEVELER procedure are in the results section. HEPATITIS B SURFACE Routine 06/09/2018 9:06 Results for this ANTIGEN AM INSOLE BEVELER procedure are in the results section. CBC W/PLT COUNT & AUTO Routine 06/09/2018 4:22 Results for this DIFFERENTIAL AM INSOLE BEVELER procedure are in the results section. PHOSPHORUS CHARLES 06/09/2018 4:22 Results for this AM INSOLE BEVELER procedure are in the results section. URIC ACID CHARLES 06/09/2018 4:22 Results for this AM INSOLE BEVELER procedure are in the results section. LACTATE DEHYDROGENASE CHARLES 06/09/2018 4:22 Results for this (LDH) AM INSOLE BEVELER procedure are in the results section. MAGNESIUM Routine 06/09/2018 4:22 Results for this AM INSOLE BEVELER procedure are in the results section. CBC W/PLT COUNT & AUTO Routine 06/09/2018 4:22 Results for this DIFFERENTIAL AM INSOLE BEVELER procedure are in the results section. COMPREHENSIVE METABOLIC Routine 06/09/2018 4:22 Results for this PANEL AM INSOLE BEVELER procedure are in the results section. MR ABDOMEN WO CONTRAST CHARLES 06/08/2018 11:36 Results for this MRCP PM INSOLE BEVELER procedure are in the results section. XR ABDOMEN 1 VIEW STAT 06/08/2018 6:07 Results for this PM INSOLE BEVELER procedure are in the results section. XR ABDOMEN 1 VIEW STAT 06/08/2018 1:27 Results for this PM INSOLE BEVELER procedure are in the results section. CBC W/PLT COUNT & AUTO Routine 06/08/2018 7:31 Results for this DIFFERENTIAL AM INSOLE BEVELER procedure are in the results section. MAGNESIUM Routine 06/08/2018 7:31 Results for this AM INSOLE BEVELER procedure are in the results section. CBC W/PLT COUNT & AUTO Routine 06/08/2018 7:31 Results for this DIFFERENTIAL AM INSOLE BEVELER procedure are in the results section. LACTIC ACID, VENOUS Routine 06/08/2018 2:16 Results for this AM INSOLE BEVELER procedure are in the results section. COMPREHENSIVE METABOLIC Routine 06/08/2018 2:16 Results for this PANEL AM INSOLE BEVELER procedure are in the results section. ECG 12-LEAD Routine 06/07/2018 9:55 PM INSOLE BEVELER Procedure Note - Interface, External Ris In - 06/07/2018 10:00 PM INSOLE BEVELER Ventricular Rate 115 BPM Atrial Rate 115 BPM P-R Interval 144 ms QRS Duration 66 ms Q-T Interval 376 ms QTC Calculation(Bazett) 520 ms P Oxford 48 degrees R Oxford 20 degrees T Oxford -[address] & T wave abnormality, consider inferior ischemia Prolonged QT Abnormal ECG No previous ECGs available ECG 12-LEAD Routine 06/07/2018 9:55 Results for this PM INSOLE BEVELER procedure are in the results section. IR PERCUTANEOUS Routine 06/07/2018 3:58 Results for this BILIARY DRAINAGE PM INSOLE BEVELER procedure are in the results section. REPORT OF PROCEDURE - 06/07/2018 12:52 ENDOSCOPY URL PM INSOLE BEVELER REPORT OF PROCEDURE - 06/07/2018 12:49 ENDOSCOPY URL PM INSOLE BEVELER ANGIOGRAM,CEREBRAL 06/07/2018 11:39 Bile duct AM INSOLE BEVELER obstruction PULMONARY FUNCTION - 06/07/2018 7:51 SCAN AM INSOLE BEVELER BLOOD CULTURE Routine 06/07/2018 5:47 Results for this AM INSOLE BEVELER procedure are in the results section. CBC W/PLT COUNT & AUTO Routine 06/07/2018 5:41 Results for this DIFFERENTIAL AM INSOLE BEVELER procedure are in the results section. MAGNESIUM Routine 06/07/2018 5:41 Results for this AM INSOLE BEVELER procedure are in the results section. CBC W/PLT COUNT & AUTO Routine 06/07/2018 5:41 Results for this DIFFERENTIAL AM INSOLE BEVELER procedure are in the results section. COMPREHENSIVE Routine 06/07/2018 5:41 Results for this METABOLIC PANEL AM INSOLE BEVELER procedure are in the results section. BLOOD CULTURE Routine 06/07/2018 5:40 Results for this AM INSOLE BEVELER procedure are in the results section. COMPREHENSIVE Routine 06/06/2018 4:53 Results for this METABOLIC PANEL AM INSOLE BEVELER procedure are in the results section. ECHOCARDIOGRAM REPORT 06/05/2018 9:20 - SCAN PM INSOLE BEVELER US TESTICULAR WITH Routine 06/05/2018 9:11 Results for this DOPPLER PM INSOLE BEVELER procedure are in the results section. 2D ECHO W/ DOPPLER Routine 06/05/2018 9:38 Results for this (CW/PW/COLOR) AM INSOLE BEVELER procedure are in the results section. CBC W/PLT COUNT & AUTO Routine 06/04/2018 5:25 Results for this DIFFERENTIAL AM INSOLE BEVELER procedure are in the results section. CBC W/PLT COUNT & AUTO Routine 06/04/2018 5:25 Results for this DIFFERENTIAL AM INSOLE BEVELER procedure are in the results section. MAGNESIUM Routine 06/04/2018 5:25 Results for this AM INSOLE BEVELER procedure are in the results section. PROTHROMBIN TIME/INR Routine 06/04/2018 5:25 Results for this AM INSOLE BEVELER procedure are in the results section. HEPATIC FUNCTION PANEL Routine 06/04/2018 5:25 Results for this AM INSOLE BEVELER procedure are in the results section. BASIC METABOLIC PANEL Routine 06/04/2018 5:25 Results for this (7) AM INSOLE BEVELER procedure are in the results section. POCT-GLUCOSE METER Routine 06/03/2018 9:38 Results for this AM INSOLE BEVELER procedure are in the results section. FL ERCP Routine 06/03/2018 9:20 Results for this AM INSOLE BEVELER procedure are in the results section. FLOW CYTOMETRY Routine 06/03/2018 8:36 Results for this REQUISITION AM INSOLE BEVELER procedure are in the results section. FLOW CYTOMETRY Routine 06/03/2018 8:36 Results for this AM INSOLE BEVELER procedure are in the results section. TISSUE EXAM AP Routine 06/03/2018 8:25 Results for this AM INSOLE BEVELER procedure are in the results section. FINE NEEDLE ASPIRATE Routine 06/03/2018 8:19 Results for this (FNA) REQUEST AM INSOLE BEVELER procedure are in the results section. FINE NEEDLE ASPIRATION AP Routine 06/03/2018 8:19 Results for this BY CLINICIAN AM INSOLE BEVELER procedure are in the results section. PROCEDURE W/ C-ARM 06/03/2018 8:00 Obstructive AM INSOLE BEVELER jaundice Special Needs (C-ARM, LINEAR SCOPE) ERCP 06/03/2018 8:00 AM INSOLE BEVELER Obstructive jaundice Special Needs (C-ARM, LINEAR SCOPE) UPPER ENDOSCOPY,FNA W/ULTRASOUND 06/03/2018 8:00 AM INSOLE BEVELER Obstructive jaundice Special Needs (C-ARM, LINEAR SCOPE) CBC W/PLT COUNT & AUTO Routine 06/03/2018 4:30 AM INSOLE BEVELER Results for this DIFFERENTIAL procedure are in the results section. CBC W/PLT COUNT & AUTO Routine 06/03/2018 4:30 AM INSOLE BEVELER Results for this DIFFERENTIAL procedure are in the results section. MAGNESIUM Routine 06/03/2018 4:30 AM INSOLE BEVELER PROTHROMBIN TIME/INR Routine 06/03/2018 4:30 AM INSOLE BEVELER HEPATIC FUNCTION PANEL Routine 06/03/2018 4:30 AM INSOLE BEVELER BASIC METABOLIC PANEL (7) Routine 06/03/2018 4:[address] ABDOMEN/PELVIS WITH IV STAT 06/02/2018 8:10 PM INSOLE BEVELER Results for this CONTRAST procedure are in the results section. CT CHEST WITH IV CONTRAST STAT 06/02/2018 8:10 PM INSOLE BEVELER HEPATITIS C ANTIBODY Routine 06/02/2018 5:41 PM INSOLE BEVELER HEPATITIS B PANEL Routine 06/02/2018 5:41 PM INSOLE BEVELER URINALYSIS W/ MICROSCOPIC Routine 06/02/2018 4:06 PM INSOLE BEVELER SPIROMETRY Routine 06/02/2018 2:41 PM INSOLE BEVELER CBC W/PLT COUNT & AUTO Routine 06/02/2018 6:06 AM INSOLE BEVELER Results for this DIFFERENTIAL procedure are in the results section. HIV-1 ANTIGEN WITH HIV-1/2 Routine 06/02/2018 6:06 AM INSOLE BEVELER Results for this ANTIBODY procedure are in the results section. BETA 2 MICROGLOBULIN Routine 06/02/2018 6:06 AM INSOLE BEVELER LACTATE DEHYDROGENASE (LDH) Routine 06/02/2018 6:06 AM INSOLE BEVELER CBC W/PLT COUNT & AUTO Routine 06/02/2018 6:06 AM INSOLE BEVELER Results for this DIFFERENTIAL procedure are in the results section. MAGNESIUM Routine 06/02/2018 6:06 AM INSOLE BEVELER PROTHROMBIN TIME/INR Routine 06/02/2018 6:06 AM INSOLE BEVELER HEPATIC FUNCTION PANEL Routine 06/02/2018 6:06 AM INSOLE BEVELER BASIC METABOLIC PANEL (7) Routine 06/02/2018 6:06 AM INSOLE BEVELER US ABDOMEN COMPLETE CHARLES 06/02/2018 2:25 AM INSOLE BEVELER after 07/17/2017 Results CBC with platelet count + automated diff (07/13/2018 4:16 AM CDT)Only the most recent of22 resultswithin the time period is included. WBC 6.6 3.5 - 10.5 K/L [facility] RBC 3.40 (L) 4.63 - 6.08 M/L [facility] Hemoglobin 9.3 (L) 13.7 - 17.5 GM/DL [facility] Hematocrit 28.6 (L) 40.1 - 51.0 % [facility] MCV 84.1 79.0 - 92.2 fL [facility] MCH 27.4 25.7 - 32.2 pg [facility] MCHC 32.5 32.3 - 36.5 GM/DL [facility] RDW 13.2 11.6 - 14.4 % [facility] Platelets 373 150 - 450 K/CU MM [facility] MPV 9.0 (L) 9.4 - 12.4 fL [facility] nRBC 0 0 - 0 /100 WBC [facility] % Neutros 82 % [facility] % Lymphs 16 % [facility] % Monos 1 % [facility] % Eos 0 % [facility] % Baso 0 % [facility] # Neutros 5.44 (H) 1.78 - 5.38 K/L [facility] # Lymphs 1.06 (L) 1.32 - 3.57 K/L [facility] # Monos 0.05 (L) 0.30 - 0.82 K/L [facility] # Eos 0.00 (L) 0.04 - 0.54 K/L [facility] # Baso 0.00 (L) 0.01 - 0.08 K/L [facility] Immature Granulocytes-Relative 1 0 - 1 % [facility] Specimen Blood - Portacath Performing Organization Address City/State/Zipcode Phone Number [address] [address] CENTER Uric acid (07/13/2018 4:16 AM CDT)Only the most recent of16 resultswithin the time period is included. Uric Acid 1.6 (L) 2.6 - 7.2 mg/dL [facility] Specimen Blood - Portacath Performing Organization Address [facility] [place] Phone Number [address] [address] CENTER Phosphorus (07/13/2018 4:16 AM CDT)Only the most recent of15 resultswithin the time period is included. Phosphorus 3.1 2.3 - 4.7 mg/dL [facility] Specimen Blood - Portacat Performing Organization Address [facility] [place] Phone Number [address] [address] CENTER Magnesium (07/13/2018 4:16 AM CDT)Only the most recent of16 resultswithin the time period is included. Magnesium 1.8 1.6 - 2.6 mg/dL [facility] Specimen Blood - Portacath Performing Organization Address [facility] [place] Phone Number [address] [address] CENTER Lactate dehydrogenase (LDH) (07/13/2018 4:16 AM CDT)Only the most recent of16 resultswithin the time period is included. LDH 219 125 - 220 U/L [facility] Specimen Blood - Portacat Performing Organization Address [facility] [place] Phone Number [address] [phone] CENTER Hepatic function panel (07/13/2018 4:16 AM CDT)Only the most recent of9 resultswithin the time period is included. Protein, Total 5.9 (L) 6.0 - 8.3 gm/dL [facility] Albumin 2.7 (L) 3.5 - 5.0 g/dL [facility] Total Bilirubin 1.1 0.2 - 1.2 mg/dL [facility] Bilirubin, Direct 0.5 0.1 - 0.5 mg/dL [facility] Alkaline Phosphatase 96 40 - 150 U/L [facility] AST 28 5 - 34 U/L [facility] ALT 45 6 - 55 U/L [facility] Specimen Blood - Portacath Performing Organization Address City/[facility]/Zipcode Phone Number [address] [address] CENTER Basic Metabolic Panel (07/13/2018 4:16 AM CDT)Only the most recent of11 resultswithin the time period is included. Sodium 137 136 - 145 meq/L [facility] Potassium 3.4 (L) 3.5 - 5.1 meq/L [facility] Chloride 104 98 - 107 meq/L [facility] CO2 26 22 - 29 meq/L [facility] BUN 11 7 - 21 mg/dL [facility] Creatinine 0.59 0.57 - 1.25 mg/dL [facility] Glucose 134 (H) 70 - 105 mg/dL [facility] Calcium 8.3 (L) 8.4 - 10.2 mg/dL [facility] EGFR 141Comment: ESTIMATED GFR IS mL/min/1.[address] [facility] NOT ACCURATE [facility] CLEARANCE IN PREDICTING GLOMERULAR FILTRATION RATE. ESTIMATED GFR IS NOT APPLICABLE FOR DIALYSIS PATIENTS. Specimen Blood - Portacath Performing Organization Address City/[facility]/Zipcode Phone Number [facility] [address] [address] CENTER RHYTHM STRIP - SCAN (07/12/2018 10:42 AM CDT)Only the most recent of2 resultswithin the time period is included. Narrative Performed At [place] Lumbar Puncture Image-Guided (07/08/2018 1:07 PM CDT)Only the most recent of2 resultswithin the time period is included. Narrative Performed At FINAL REPORT [facility] Procedure: Fluoroscopy guided lumbar puncture for intrathecal chemotherapy Radiologist: Casandra Arce M.D. CLINICAL HISTORY: DLBCL, 12 mg MTX 50 hydrocortisone DESCRIPTION OF PROCEDURE: After obtaining informed consent, the patient was prepped and draped on the fluoroscopy table following the usual sterile fashion for lumbar puncture. 1% lidocaine was administered for local anesthesia. Using fluoroscopic guidance, a 22-gauge spinal needle advanced into the thecal sac at the L3-L4 level. After verification of clear CSF return, the labeled syringe of methotrexate 12 mg and hydrocortisone 50 mg was hand injected into the thecal sac without difficulty. There were no periprocedural complications. Fluoroscopy time: 0.1 minutes. Images: 1. Impression: Successful fluoroscopy guided lumbar puncture for administration of intrathecal methotrexate and hydrocortisone. Signed: Casandra Arce MD Report Verified Date/Time:07/08/2018 15:29:47 Reading Location: [address] Neuro Reading Room Procedure Note Interface, External Ris In - 07/08/2018 3:31 PM CDT FINAL REPORT Procedure: Fluoroscopy guided lumbar puncture for intrathecal chemotherapy Radiologist: Casandra Arce M.D. CLINICAL HISTORY: DLBCL, 12 mg MTX 50 hydrocortisone DESCRIPTION OF PROCEDURE: After obtaining informed consent, the patient was prepped and draped on the fluoroscopy table following the usual sterile fashion for lumbar puncture. 1% lidocaine was administered for local anesthesia. Using fluoroscopic guidance, a 22-gauge spinal needle advanced into the thecal sac at the L3-L4 level. After verification of clear CSF return, the labeled syringe of methotrexate 12 mg and hydrocortisone 50 mg was hand injected into the thecal sac without difficulty. There were no periprocedural complications. Fluoroscopy time: 0.1 minutes. Images: 1. Impression: Successful fluoroscopy guided lumbar puncture for administration of intrathecal methotrexate and hydrocortisone. Signed: Casandra Arce MD Report Verified Date/Time: 07/08/2018 15:29:47 Reading Location: [facility] C013V Neuro Reading Room Performing Organization Address City/State/Zipcode Phone Number [facility] IR Port-a-Cath Placement (07/08/2018 9:35 AM CDT) Narrative Performed At FINAL REPORT [facility] Right internal jugular chest port insertion History: Lymphoma. Modality: Sonography and fluoroscopy. Sedation: Versed 1.0 mg and fentanyl 50 mcg given intravenously for conscious sedation.Vital signs were monitored throughout the procedure by a nurse, and remained stable. Physician intra-service time was 20 minutes. Membership Advisor:Lc Medeiros MD Grocery Store Associate:None. Approach: Right internal jugular vein Estimated blood loss:< 5 cc. Specimen: None. Fluoroscopy Time: 0.0 min. Reference Air Kerma (Ka, r): 0.1 mGy. Technique: Informed written consent was obtained. Discussion of risks, benefits, and alternatives were made with the patient. The patient expressed understanding and agreed to proceed.A universal timeout was performed prior to starting the procedure.All elements maximal sterile barrier technique was utilized for this procedure, including utilization of sterile scrub solution for skin prep, a large sterile sheet to cover the areas of the patient that were not prepped, and hand hygiene, mask, head covering, and sterile gown for performing radiologist and scrub technologist. The skin was anesthetized with 2% lidocaine.Ultrasound evaluation showed a patent and compressible right internal jugular vein, which was punctured under direct real-time ultrasound guidance with a micropuncture needle.An ultrasound image was saved to PACS. A 0.018 inch wire was placed through the needle into the right atrium. A 4 Lebanese micropuncture sheath was placed. A subcutaneous tunnel and pocket were created in the right anterior chest wall by blunt dissection.The pocket was flushed with antibiotic solution. A 6F Bard port was placed within the pocket and the catheter brought through the tunnel. The catheter was cut at 23 cm. A peel-away sheath was placed in the right IJ vein and the catheter was advanced through the sheath, with its distal tip terminating in the cavoatrial junction. The peel-away sheath was removed. The port was flushed and aspirated easily following placement.The skin incision was closed with 3-0 running subcuticular Monocryl and Steri-Strips.The small jugular incision site was closed using Steri-Strips.The patient tolerated the procedure well and left the department in the same condition. Results:Spot radiograph of the chest demonstrates the new right IJ Port-A-Cath to lie in the expected position with its tip overlying the cavoatrial junction. Additionally, the patient has a large right pleural effusion. Impression: Successful, uncomplicated placement of a right internal jugular chest port. The port is ready for immediate use. Incidental note of a large right pleural effusion. Signed: Lc Medeiros MD Report Verified Date/Time:07/08/2018 12:32:07 Reading Location: [place] [id number] Angio Body Reading Room Procedure Note Interface, External Ris In - 07/08/2018 12:34 PM CDT FINAL REPORT Right internal jugular chest port insertion History: Lymphoma. Modality: Sonography and fluoroscopy. Sedation: Versed 1.0 mg and fentanyl 50 mcg given intravenously for conscious sedation. Vital signs were monitored throughout the procedure by a nurse, and remained stable. Physician intra-service time was 20 minutes. Membership Advisor: Lc Medeiros MD Grocery Store Associate: None. Approach: Right internal jugular vein Estimated blood loss: < 5 cc. Specimen: None. Fluoroscopy Time: 0.0 min. Reference Air Kerma (Ka, r): 0.1 mGy. Technique: Informed written consent was obtained. Discussion of risks, benefits, and alternatives were made with the patient. The patient expressed understanding and agreed to proceed. A universal timeout was performed prior to starting the procedure. All elements maximal sterile barrier technique was utilized for this procedure, including utilization of sterile scrub solution for skin prep, a large sterile sheet to cover the areas of the patient that were not prepped, and hand hygiene, mask, head covering, and sterile gown for performing radiologist and scrub technologist. The skin was anesthetized with 2% lidocaine. Ultrasound evaluation showed a patent and compressible right internal jugular vein, which was punctured under direct real-time ultrasound guidance with a micropuncture needle. An ultrasound image was saved to PACS. A 0.018 inch wire was placed through the needle into the right atrium. A 4 Lebanese micropuncture sheath was placed. A subcutaneous tunnel and pocket were created in the right anterior chest wall by blunt dissection. The pocket was flushed with antibiotic solution. A 6F Bard port was placed within the pocket and the catheter brought through the tunnel. The catheter was cut at 23 cm. A peel-away sheath was placed in the right IJ vein and the catheter was advanced through the sheath, with its distal tip terminating in the cavoatrial junction. The peel-away sheath was removed. The port was flushed and aspirated easily following placement. The skin incision was closed with 3-0 running subcuticular Monocryl and Steri-Strips. The small jugular incision site was closed using Steri-Strips. The patient tolerated the procedure well and left the department in the same condition. Results: Spot radiograph of the chest demonstrates the new right IJ Port-A-Cath to lie in the expected position with its tip overlying the cavoatrial junction. Additionally, the patient has a large right pleural effusion. Impression: Successful, uncomplicated placement of a right internal jugular chest port. The port is ready for immediate use. Incidental note of a large right pleural effusion. Signed: Lc Medeiros MD Report Verified Date/Time: 07/08/2018 12:32:07 Reading Location: [place] [address] Angio Body Reading Room Performing Organization Address City/State/Zipcode Phone Number [facility] XR chest 2 views (07/07/2018 9:15 PM CDT)Only the most recent of2 resultswithin the time period is included. Narrative Performed At FINAL REPORT [facility] Exam: Chest x-ray, PA and lateral views Clinical History: History of right pleural effusion status post thoracentesis. Concern for recurrent effusion. Comparison: Chest radiograph 07/01/2018. Technique: Frontal and lateral views of the chest were obtained. Findings/impression: There is a moderate loculated right pleural effusion, not significantly changed in size. There is associated compressive atelectasis. The left lung is grossly clear. There is no pneumothorax. The heart is normal in size. The aorta is uncoiled. There is a partially imaged catheter overlying the right upper quadrant. Signed: Juan Billings MD Report Verified Date/Time:07/07/2018 21:42:29 Reading Location: [facility] B1 C013Y CT Body Reading Room Procedure Note Interface, External Ris In - 07/07/2018 9:44 PM CDT FINAL REPORT Exam: Chest x-ray, PA and lateral views Clinical History: History of right pleural effusion status post thoracentesis. Concern for recurrent effusion. Comparison: Chest radiograph 07/01/2018. Technique: Frontal and lateral views of the chest were obtained. Findings/impression: There is a moderate loculated right pleural effusion, not significantly changed in size. There is associated compressive atelectasis. The left lung is grossly clear. There is no pneumothorax. The heart is normal in size. The aorta is uncoiled. There is a partially imaged catheter overlying the right upper quadrant. Signed: Juan Billings MD Report Verified Date/Time: 07/07/2018 21:42:29 Reading Location: [facility] B1 C013Y CT Body Reading Room Performing Organization Address City/[facility]/Zipcode Phone Number [facility] PT/aPTT (07/07/2018 11:46 AM CDT) Protime 14.5 11.7 - 14.7 seconds [facility] INR 1.1 <=5.9 [facility] PTT 33.7 22.5 - 36.0 seconds [facility] Specimen Blood - Arm, Left Narrative Performed At RECOMMENDED COUMADIN/WARFARIN INR THERAPY [facility] RANGES STANDARD DOSE: 2.0 - 3.0 Includes: PROPHYLAXIS for venous thrombosis, systemic embolization; TREATMENT for venous thrombosis and/or pulmonary embolus. HIGH RISK: Target INR is 2.5-3.5 for patients with mechanical heart valves. Performing Organization Address City/[facility]/Zipcode Phone Number [address] [phone] CENTER Comprehensive metabolic panel (07/07/2018 11:46 AM CDT)Only the most recent of12 resultswithin the time period is included. Protein, Total 7.5Comment: Specimen 6.0 - 8.3 gm/dL [facility] markedly hemolyzed [facility] Albumin 2.7 (L)Comment: Specimen 3.5 - 5.0 g/dL [facility] markedly hemolyzed [facility] Alkaline Phosphatase 121 40 - 150 U/L [facility] Total Bilirubin 0.7Comment: Specimen 0.2 - 1.2 mg/dL [facility] markedly hemolyzed [facility] Sodium 136 136 - 145 meq/L [facility] Potassium 4.5Comment: Specimen 3.5 - 5.1 meq/L [facility] markedly hemolyzed [facility] Chloride 107 98 - 107 meq/L [facility] CO2 21 (L) 22 - 29 meq/L [facility] [place] BUN 12 7 - 21 mg/dL [facility] [place] Creatinine 0.70Comment: Specimen 0.57 - 1.25 mg/dL [facility] hemolyzed [facility] Glucose 117 (H) 70 - 105 mg/dL [facility] [place] Calcium 8.9 8.4 - 10.2 mg/dL [facility] [place] AST 53 (H)Comment: Specimen 5 - 34 U/L [facility] markedly hemolyzed [facility] ALT 43Comment: Specimen 6 - 55 U/L [facility] markedly hemolyzed [facility] EGFR 115Comment: ESTIMATED mL/min/1.73 sq m [facility] GFR IS NOT ACCURATE [facility] CREATININE CLEARANCE IN PREDICTING GLOMERULAR FILTRATION RATE. ESTIMATED GFR IS NOT APPLICABLE FOR DIALYSIS PATIENTS. Specimen Blood - Arm, Left Performing Organization Address City/State/Zipcode Phone Number [facility] [address] [place] [address] CENTER XR chest 1 view portable / bedside (07/01/2018 4:43 PM CDT)Only the most recent of2 resultswithin the time period is included. Narrative Performed At FINAL REPORT [employer] Postthoracentesis chest dated 07/01/2018 Comment:Post thoracentesis chest demonstrates no pneumothorax. Heart is normal in size. Small to moderate residual pleural effusion is present. Impression: No pneumothorax on the post thoracentesis chest. Signed: Manny Smith MD Report Verified Date/Time:07/01/2018 19:41:50 Reading Location: [facility] C013 Consult Reading Room Procedure Note Interface, External Ris In - 07/01/2018 7:44 PM CDT FINAL REPORT Postthoracentesis chest dated 07/01/2018 Comment: Post thoracentesis chest demonstrates no pneumothorax. Heart is normal in size. Small to moderate residual pleural effusion is present. Impression: No pneumothorax on the post thoracentesis chest. Signed: Manny Smith MD Report Verified Date/Time: 07/01/2018 19:41:50 Reading Location: [facility] C013W Consult Reading Room Performing Organization Address City/State/Zipcode Phone Number [facility] US Thoracentesis (07/01/2018 3:55 PM CDT) Narrative Performed At FINAL REPORT [employer] Exam:Ultrasound guided thoracentesis Clinical History:Pleural effusion Consent:Benefits and risks were explained to the patient who gave consent to the procedure. Complication:None immediate Procedure:The patient was placed in uprightposition. The right posterior chest was prepped and draped in usual sterile fashion. 1% lidocaine was used as local anesthetic. Under ultrasound guidance, a thoracentesis catheter was inserted into the pleural cavity. Approximately 1400 cc of clear yellow fluid was aspirated. The catheter was removed. The specimen was sent to the laboratory for further analysis. The patient tolerated the procedure well without any adverse reaction. A STAT chest x-ray was ordered. The patient left the department in stable condition. Impression:Ultrasound guided right thoracentesis. Signed: Jaquelin Borja MD Report Verified Date/Time:07/01/2018 17:04:04 Reading Location: [facility] B1 [id number] Ultrasound Reading Room Procedure Note Interface, External Ris In - 07/01/2018 5:06 PM CDT FINAL REPORT Exam: Ultrasound guided thoracentesis Clinical History: Pleural effusion Consent: Benefits and risks were explained to the patient who gave consent to the procedure. Complication: None immediate Procedure: The patient was placed in uprightposition. The right posterior chest was prepped and draped in usual sterile fashion. 1% lidocaine was used as local anesthetic. Under ultrasound guidance, a thoracentesis catheter was inserted into the pleural cavity. Approximately 1400 cc of clear yellow fluid was aspirated. The catheter was removed. The specimen was sent to the laboratory for further analysis. The patient tolerated the procedure well without any adverse reaction. A STAT chest x-ray was ordered. The patient left the department in stable condition. Impression: Ultrasound guided right thoracentesis. Signed: Jaquelin Borja MD Report Verified Date/Time: 07/01/2018 17:04:04 Reading Location: [facility] B1 [id number] Ultrasound Reading Room Performing Organization Address City/State/Zipcode Phone Number [facility] aPTT (07/01/2018 1:38 PM CDT) PTT 33.1 22.5 - 36.0 seconds [facility] [place] Specimen Blood Performing Organization Address City/[facility]/[place] [address] CENTER Prothrombin time/INR (07/01/2018 1:38 PM CDT)Only the most recent of5 resultswithin the time period is included. Protime 15.2 (H) 11.7 - 14.7 seconds [facility] [place] INR 1.2 <=5.9 [facility] [place] Specimen Blood Narrative Performed At RECOMMENDED COUMADIN/WARFARIN INR THERAPY [facility] [place] RANGES STANDARD DOSE: 2.0 - 3.0 Includes: PROPHYLAXIS for venous thrombosis, systemic embolization; TREATMENT for venous thrombosis and/or pulmonary embolus. HIGH RISK: Target INR is 2.5-3.5 for patients with mechanical heart valves. Performing Organization Address City/[facility]/Zipcode Phone Number [facility] [address] [place], [place] [id number] [phone] CENTER EKG-SCANNED (06/21/2018 10:24 AM CDT) Narrative Performed At Manual Differential (06/17/2018 10:13 AM CDT)Only the most recent of4 resultswithin the time period is included. % Neutros 96 % [facility] [place] % Lymphs 3 % [facility] [place] % Eos 1 % [facility] [place] # Neutros 24.48 (H) 1.78 - 5.38 K/ul [facility] [place] # Lymphs 0.77 (L) 1.32 - 3.57 K/ul [facility] [place] # Eos 0.26 0.04 - 0.54 K/uL [facility] [place] Total Counted 100 [facility] [place] RBC Morphology Normal [facility] [place] WBC Morphology Normal [facility] [place] Large Platelet Present [facility] [place] Artifact Present [facility] [place] Platelet Conc Adequate [facility] [place] Specimen Blood - Central Venous Line Narrative Performed At Received comment: [facility] [place] User comments: Slide comments: Performing Organization Address City/State/Zipcode Phone Number [facility] [address] [place] [address] [phone] [place] Calcium, Ionized (06/17/2018 10:13 AM CDT) Calcium, Ion 1.01 (L) 1.12 - 1.27 mmol/L [facility] [place] pH, Blood 7.[address] [facility] Specimen Blood - Central Venous Line Performing Organization Address City/State/Zipcode Phone Number [facility] [address] [place] [address] CENTER FL upper gi with small bowel and KUB (06/16/2018 5:00 PM CDT) Narrative Performed At FINAL REPORT GE RIS INDICATION: Nausea and abdominal pain. Evaluate for small bowel obstruction. COMPARISON: Abdomen radiograph June 09, 2018 TECHNIQUE: Small bowel follow-through. Fluoroscopy time 0.4 minutes. Fluoroscopic images 11. FINDINGS: Axle Turner radiograph demonstrates a internal/external biliary catheter and an internal biliary catheter. Residual contrast in the colon noted. The patient was administered thin barium by mouth. Serial radiographs were performed. At 20 minutes contrast was in the stomach and duodenum. At 40 minutes contrast passed into the jejunum and then into the proximal ileum at one hour 30 minutes. At two hours small bowel loops in the pelvis opacified. At two hours and 30 minutes contrast progressed in the small bowel and demonstrated an absence of bowel in the central abdomen. This is because of the patient's known mesenteric mass as demonstrated on CT June 02, 2018. At three hours and 30 minutes nearly all the contrast was out of the stomach and proximal small bowel and in the distal small bowel and proximal right colon. IMPRESSION: No small bowel obstruction. Signed: Ortiz Mckenzie MD Report Verified Date/Time:06/16/2018 17:06:13 Reading Location: [facility] [id number] Ortho Consult Reading Room Procedure Note Interface, External Ris In - 06/16/2018 5:18 PM CDT FINAL REPORT INDICATION: Nausea and abdominal pain. Evaluate for small bowel obstruction. COMPARISON: Abdomen radiograph June 09, 2018 TECHNIQUE: Small bowel follow-through. Fluoroscopy time 0.4 minutes. Fluoroscopic images 11. FINDINGS: Axle Turner radiograph demonstrates a internal/external biliary catheter and an internal biliary catheter. Residual contrast in the colon noted. The patient was administered thin barium by mouth. Serial radiographs were performed. At 20 minutes contrast was in the stomach and duodenum. At 40 minutes contrast passed into the jejunum and then into the proximal ileum at one hour 30 minutes. At two hours small bowel loops in the pelvis opacified. At two hours and 30 minutes contrast progressed in the small bowel and demonstrated an absence of bowel in the central abdomen. This is because of the patient's known mesenteric mass as demonstrated on CT June 02, 2018. At three hours and 30 minutes nearly all the contrast was out of the stomach and proximal small bowel and in the distal small bowel and proximal right colon. IMPRESSION: No small bowel obstruction. Signed: Ortiz Mckenzie MD Report Verified Date/Time: 06/16/2018 17:06:13 Reading Location: [facility] C013X Ortho Consult Reading Room Performing Organization Address City/[facility]/Zipcode Phone Number [employer] Bilirubin, direct (06/16/2018 4:08 AM CDT) Bilirubin, Direct 1.6 (H) 0.1 - 0.5 mg/dL [facility] [place] Specimen Blood - Central Venous Line Performing Organization Address City/[facility] [place] [address] [phone] CENTER IR Percutaneous Cholangiogram (06/15/2018 8:45 PM CDT) Narrative Performed At FINAL REPORT GE [employer] History: Lymphoma, biliary obstruction, malfunctioning right internal/external biliary drainage catheter. PROCEDURE: Following informed written consent, the patient's existing right internal/external biliary drainage catheter and surrounding skin site were prepped and draped in the usual sterile manner. 2% lidocaine was given locally for anesthesia. No conscious sedation was administered. Vital signs were monitored by the attending radiologist and a registered nurse during the procedure for approximately 20 minutes and remained stable. Cholangiogram was first performed through the pre-existing catheter. The catheter was then cut and removed over a wire. A Berenstein catheter and 035 angled Glidewire were used to traverse the common bile duct and reselect the duodenum. An Amplatz wire was placed through the Berenstein catheter into the proximal small bowel. A new 8 Lebanese internal/external biliary drainage catheter was placed over the wire, through the existing access tract and into position with its distal tip coiled in the small bowel under fluoroscopic control. The new catheter was injected with contrast to confirm its position. The catheter was secured to the skin using 2-0 silk suture and capped to internal drainage. Overall, the patient tolerated the procedure well without immediate complications and was discharged from the department in stable condition. FINDINGS: Multiple images obtained during the procedure show the patient's pre-existing right internal/external biliary drainage catheter to lie in an atypical position. The catheter been partially withdrawn with its distal tip in the region of the common duct above the ampulla. Summary sideholes lie outside the liver within the peritoneal cavity. There appears to be moderate amount of ascites present surrounding the liver. Following replacement of the catheter, the new catheter lies in expected position with its distal tip coiled in the duodenal lumen. Injected contrast is seen in the common bile duct as well as the cystic duct and gallbladder. Contrast flows through the catheter into the small bowel without evidence for obstruction. IMPRESSION: 1. Successful uncomplicated replacement of the patient's malpositioned right internal/external biliary drainage catheter as described in detail above. Total fluoroscopy time: 4.0 minutes. Estimated total patient dose reported as (Ka,r): 150 mGy Signed: Iban Javier MD Report Verified Date/Time:06/16/2018 18:03:48 Reading Location: [place] [id number] Angio Body Reading Room Procedure Note Interface, External Ris In - 06/16/2018 6:06 PM CDT FINAL REPORT History: Lymphoma, biliary obstruction, malfunctioning right internal/external biliary drainage catheter. PROCEDURE: Following informed written consent, the patient's existing right internal/external biliary drainage catheter and surrounding skin site were prepped and draped in the usual sterile manner. 2% lidocaine was given locally for anesthesia. No conscious sedation was administered. Vital signs were monitored by the attending radiologist and a registered nurse during the procedure for approximately 20 minutes and remained stable. Cholangiogram was first performed through the pre-existing catheter. The catheter was then cut and removed over a wire. A Berenstein catheter and 035 angled Glidewire were used to traverse the common bile duct and reselect the duodenum. An Amplatz wire was placed through the Berenstein catheter into the proximal small bowel. A new 8 Lebanese internal/external biliary drainage catheter was placed over the wire, through the existing access tract and into position with its distal tip coiled in the small bowel under fluoroscopic control. The new catheter was injected with contrast to confirm its position. The catheter was secured to the skin using 2-0 silk suture and capped to internal drainage. Overall, the patient tolerated the procedure well without immediate complications and was discharged from the department in stable condition. FINDINGS: Multiple images obtained during the procedure show the patient's pre-existing right internal/external biliary drainage catheter to lie in an atypical position. The catheter been partially withdrawn with its distal tip in the region of the common duct above the ampulla. Summary sideholes lie outside the liver within the peritoneal cavity. There appears to be moderate amount of ascites present surrounding the liver. Following replacement of the catheter, the new catheter lies in expected position with its distal tip coiled in the duodenal lumen. Injected contrast is seen in the common bile duct as well as the cystic duct and gallbladder. Contrast flows through the catheter into the small bowel without evidence for obstruction. IMPRESSION: 1. Successful uncomplicated replacement of the patient's malpositioned right internal/external biliary drainage catheter as described in detail above. Total fluoroscopy time: 4.0 minutes. Estimated total patient dose reported as (Ka,r): 150 mGy Signed: Iban Javier MD Report Verified Date/Time: 06/16/2018 18:03:48 Reading Location: [place] [address] Angio Body Reading Room Performing Organization Address City/[facility] Phone Number GE RIS Vitamin B12 and Folate (06/12/2018 4:59 AM INSOLE BEVELER) Vitamin B12 559 213 - 816 pg/mL [facility] [place] Folate 6.6 (L) >=7.0 ng/mL [facility] [place] Specimen Blood - PICC Performing Organization Address City/State/Zipcode Phone Number [address] [address] [phone] CENTER TSH/Free T4 If Indicated (06/12/2018 4:59 AM INSOLE BEVELER) TSH 0.79 0.35 - 4.94 uIU/mL [facility] [place] Specimen Blood - PICC Performing Organization Address City/[facility]/Zipcode Phone Number [address] [place] [phone] CENTER Iron, TIBC, % sat. (without ferritin) (06/12/2018 4:59 AM INSOLE BEVELER) Iron 69.0 40.0 - 160.0 ug/dL [facility] [place] TIBC 178 (L) 250 - 450 ug/dL [facility] [place] Iron % Saturation 39 20 - 55 % [facility] [place] Specimen Blood - PICC Performing Organization Address [facility] Phone Number [address] [address] [phone] CENTER Ferritin (06/12/2018 4:59 AM INSOLE BEVELER) Ferritin 712 (H) 5 - 275 ng/mL [facility] [place] Specimen Blood - PICC Performing Organization Address [facility] Phone Number [address] [address] [phone] [place] Protein, CSF (06/11/2018 2:10 PM INSOLE BEVELER) Protein, CSF 27 15 - 45 mg/dL [facility] [place] Specimen Cerebrospinal Fluid - Lumbar Puncture Performing Organization Address [facility] Phone Number [address] [address] [place] Flow Cytometry Requisition (06/11/2018 2:08 PM INSOLE BEVELER)Only the most recent of2 resultswithin the time period is included. Flow Cytometry See Separate Report [facility] [place] Case # [id number] [facility] [place] Specimen Cerebrospinal Fluid Performing Organization Address [facility] Phone Number [address] [address] [place] Flow Cytometry (06/11/2018 2:01 PM INSOLE BEVELER)Only the most recent of2 resultswithin the time period is included. 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 There is no definitive immunophenotypic evidence of involvement by non-Hodgkin lymphoma including the patient's previously diagnosed high-grade B-cell lymphoma; however, the evaluation is limited by paucicellularity and decreased viability (84.3%). Correlation with clinical, radiologic, and other laboratory findings is recommended for further evaluation. CPT Code(s) 52493 [facility] [place] CLINICAL HISTORY High-grade B-cell lymphoma [facility] [place] SPECIMEN SOURCE Cerebrospinal fluid [facility] [place] CELLULAR BIOMARKER ANALYSIS CD8, surface-kappa, CD56, [facility] surface-lambda, CD5, CD19, [facility] CD10, CD3, CD20, CD4, CD45 IMMUNOPHENOTYPIC FINDINGS Specimen Viability: 84.3% Number of Events Acquired: 76081 [facility] [place] The following populations are identified: Lymphocytes: Bright CD45+ lymphocytes comprise 19.5% of total cells. T cells show a CD4:CD8 ratio of 0.9 and normal expression of the hadley T cell antigens CD3 and CD5. B cells are polytypic with a kappa:lambda ratio of 2.2. Myeloid/monocytic populations: As identified by CD45 and light scatter characteristics, granulocytes comprise 28.7% of cells analyzed, and monocytes comprise 1.4% of total cells. The remaining events analyzed represent nonviable cells, non-hematolymphoid cells, and debris. DISCLAIMER These tests were developed [facility] and their performance [facility] characteristics determined by [facility]. They have not been cleared or approved by the U.S. Food and Drug Administration. The FDA has determined that such clearance or approval is not necessary. It should not be regarded as investigational or for research. This laboratory is certified under the Clinical Laboratory Improvement Amendments of 1988 ("CLIA") as qualified to perform high-complexity clinical testing. Technical component was [facility] performed at [place], Department [facility] Pathology, [address] [place] [phone], Professional component was [facility] performed at [place], Department of [facility] Pathology, [address] [place] [address], Specimen Other Performing Organization Address City/State/Zipcode Phone Number [address] [address] [phone] [place] Cytology (06/11/2018 2:01 PM INSOLE BEVELER) Case Report Medical Cytology Report Case: [id number] [facility] Authorizing Provider:Ricarda Chance MD Collected: 06/11/2018 1401 [facility] Ordering Location: [address] Received: 06/14/2018 0918 SERVICE Pathologist: Britt Mckeon MD Specimen:CSF DIAGNOSIS CEREBROSPINAL FLUID (CYTOSPINS): [facility] - NEGATIVE FOR EPITHELIAL MALIGNANCY [facility] Signing Pathologist Direct Phone Line: [phone] CPT Code(s) 39953 [facility] [place] CLINICAL DATA High-grade B-cell lymphoma [facility] [place] SPECIMEN SOURCE CEREBROSPINAL FLUID [facility] [place] GROSS DESCRIPTION Prepared 2 cytospins from 6 ml colorless fluid [facility] Collected: [id number] [facility] Received: [id number] STATEMENT OF ADEQUACY Satisfactory [facility] [place] Gross assessment was [facility] performed at [place], Department of [facility] Pathology, [address] [place] [phone], Technical component was [facility] performed at [place], Department [facility] Pathology, [address] [place] [address], Professional component was [facility] performed at [place], Department [facility] Pathology, [address] [place] [phone], Specimen Cerebrospinal Fluid - CSF Narrative Performed At Performing Organization Address City/State/Zipcode Phone Number [address] [address] [place] Hepatitis B PCR, quantitative (06/09/2018 8:23 PM INSOLE BEVELER) HBV PCR, Quantitative HBV DNA not detected HBV DNA not detected [facility] Specimen Blood - Central Venous Line Narrative Performed At This test uses a Real-Time Polymerase Chain [facility] [place] Reaction (RT-PCR) methodology and was performed using [employer] Ampl[employer]Prep/[employer] TaqMan HBV Test, v2.0 ([employer] Reportable range for this assay is 20 - 170,000,000 IU per mL (1.30 - 8.23 Log IU/mL). Performing Organization Address City/State/Zipcode Phone Number [address] [address] [place] XR abdomen / KUB 1 view (06/09/2018 5:00 PM INSOLE BEVELER)Only the most recent of4 resultswithin the time period is included. Narrative Performed At FINAL REPORT [facility] ONE VIEW ABDOMEN HISTORY: Status post feeding tube placement COMPARISON: 1109 hours on 06/09/2018 FINDINGS: Single supine AP image of the abdomen was obtained. The feeding tube has been advanced, with its tip now in the duodenal bulb. The biliary drainage catheter in the right abdomen. A stent is noted in the region of the pancreatic duct or common bile duct. No dilated bowel loops are identified. Signed: Reyna Mejia MD Report Verified Date/Time:06/09/2018 17:31:04 Reading Location: [facility] C013 Consult Reading Room Procedure Note Interface, External Ris In - 06/09/2018 5:33 PM INSOLE BEVELER FINAL REPORT ONE VIEW ABDOMEN HISTORY: Status post feeding tube placement COMPARISON: 1109 hours on 06/09/2018 FINDINGS: Single supine AP image of the abdomen was obtained. The feeding tube has been advanced, with its tip now in the duodenal bulb. The biliary drainage catheter in the right abdomen. A stent is noted in the region of the pancreatic duct or common bile duct. No dilated bowel loops are identified. Signed: Reyna Mejia MD Report Verified Date/Time: 06/09/2018 17:31:04 Reading Location: [facility] C013W Consult Reading Room Performing Organization Address City/State/Zipcode Phone Number [employer] Hepatitis B surface antigen (06/09/2018 9:06 AM INSOLE BEVELER) hepatitis B Surface Ag NON-REACTIVE Nonreactive [facility] Specimen Blood - Arm, Right Performing Organization Address City/State/Zipcode Phone Number [facility] [address] [place] [address] [phone] CENTER MR abdomen without IV contrast MRCP (06/08/2018 11:36 PM INSOLE BEVELER) Narrative Performed At FINAL REPORT [facility] INDICATION: Mesenteric mass, lymphoma. Evaluate for biliary obstruction. COMPARISON: Abdomen radiograph June 08, [address] June 02, 2018 TECHNIQUE: MR of the Abdomen WITHOUT intravenous contrast. MRCP, including 3-D reconstructions. FINDINGS: As demonstrated on recent CT there is a bulky mass of the central mesentery contiguous with periaortic lymphadenopathy. Right transhepatic internal/external biliary drainage catheter and stent in the common bile duct better demonstrated on radiography. Gallbladder is partly collapsed. There is no biliary ductal dilatation. Tiny amount of perihepatic and perisplenic fluid is noted. Spleen itself is unremarkable. Adrenal glands and kidneys unremarkable. Visualized bowel loops unremarkable. IMPRESSION: Central mesenteric mass, representing lymphoma. No biliary ductal dilatation. Signed: Ortiz Mckenzie MD Report Verified Date/Time:06/09/2018 00:05:45 Reading Location: [facility] C013 Consult Reading Room Procedure Note Interface, External Ris In - 06/09/2018 12:43 AM INSOLE BEVELER FINAL REPORT INDICATION: Mesenteric mass, lymphoma. Evaluate for biliary obstruction. COMPARISON: Abdomen radiograph June 08, [address] June 02, 2018 TECHNIQUE: MR of the Abdomen WITHOUT intravenous contrast. MRCP, including 3-D reconstructions. FINDINGS: As demonstrated on recent CT there is a bulky mass of the central mesentery contiguous with periaortic lymphadenopathy. Right transhepatic internal/external biliary drainage catheter and stent in the common bile duct better demonstrated on radiography. Gallbladder is partly collapsed. There is no biliary ductal dilatation. Tiny amount of perihepatic and perisplenic fluid is noted. Spleen itself is unremarkable. Adrenal glands and kidneys unremarkable. Visualized bowel loops unremarkable. IMPRESSION: Central mesenteric mass, representing lymphoma. No biliary ductal dilatation. Signed: Ortiz Mckenzie MD Report Verified Date/Time: 06/09/2018 00:05:45 Reading Location: [address] Consult Reading Room Performing Organization Address City/State/Zipcode Phone Number [employer]IS Lactic acid, venous, whole blood (06/08/2018 2:16 AM INSOLE BEVELER) Lactate, Venous 1.6 0.5 - 2.2 mmol/L [facility] Specimen Blood - Arm, Left Narrative Performed At Specimen slightly icteric [facility] Performing Organization Address City/[facility]/Zipcode Phone Number [place] [phone] [place] [address] [phone] CENTER ECG 12 lead (06/07/2018 9:55 PM INSOLE BEVELER) Narrative Performed At Ventricular Rate 115 BPM GE MUSE Atrial Rate 115 BPM P-R Interval 144 ms QRS Duration 66 ms Q-T Interval 376 ms QTC Calculation(Bazett) 520 ms P Oxford 48 degrees R Oxford 20 degrees T Oxford -62 degrees Sinus tachycardia Prolonged QT Baseline artefact. Unable to comment on ST/T segments. Abnormal ECG No previous ECGs available Please repeat EKG Confirmed by Kristy NUNEZ, WHIT ([id number]) on 06/08/2018 8:03:25 AM Procedure Note Interface, External Ris In - 06/08/2018 8:03 AM INSOLE BEVELER Ventricular Rate 115 BPM Atrial Rate 115 BPM P-R Interval 144 ms QRS Duration 66 ms Q-T Interval 376 ms QTC Calculation(Bazett) 520 ms P Oxford 48 degrees R Oxford 20 degrees T Oxford -62 degrees Sinus tachycardia Prolonged QT Baseline artefact. Unable to comment on ST/T segments. Abnormal ECG No previous ECGs available Please repeat EKG Confirmed by Kristy NUNEZ BASANT ([id number]) on 06/08/2018 8:03:25 AM Performing Organization Address City/State/Zipcode Phone Number [employer] IR Percutaneous Biliary Drainage (06/07/2018 3:58 PM INSOLE BEVELER) Narrative Performed At FINAL REPORT [facility] History: Lymphoma, biliary obstruction. PROCEDURE: Following informed written consent, general endotracheal anesthesia was administered and the patient's right lateral abdominal wall was prepped and draped in the usual sterile manner. Using a 21-gauge Chiba needle, fluoroscopic guidance and a right mid axillary approach, access was gained to the intrahepatic bile duct. Percutaneous transhepatic cholangiogram was performed. A second 21-gauge Chiba needle was then used to access a more peripheral right intrahepatic duct. An 018 wire was advanced through the needle centrally into the common hepatic duct. An AccuStick sheath was placed. Repeat contrast injection was performed to confirm position of the AccuStick sheath and the common hepatic duct. An 035 angled Glidewire and 4 Lebanese Berenstein catheter were used to carefully traverse the common bile duct and select the duodenum. The Glidewire was then exchanged through the catheter for an Amplatz wire. The tract was dilated. A 9 Lebanese peel-away sheath was placed. An 8.5 Lebanese internal/external biliary drainage catheter was then placed over the wire and through the peel-away sheath into position with its distal tip coiled in the duodenum and sideholes extending proximally into the common hepatic duct. Repeat contrast injection was performed to confirm position of the catheter. The catheter was then secured to the skin using 2-0 silk suture and placed to external gravity bag drainage. Overall, the patient tolerated the procedure well without immediate complications and was discharged from the department to the recovery room in stable condition. FINDINGS: Multiple images obtained during the procedure demonstrate mild intrahepatic biliary ductal dilatation. There is a high-grade long segment stricture of the distal common bile duct to the level of the ampulla. A small amount of contrast is seen flowing through the stricture into the common duct. Following placement of the internal/external biliary drainage catheter, the catheter is noted to lie in expected position with its distal tip coiled in the duodenum. Sideholes extending proximally into the common hepatic duct. IMPRESSION: 1. 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 This is consistent with patient's known lymphadenopathy in this area. 2. Successful uncomplicated placement of an 8.5 Lebanese right internal/external biliary drainage catheter. Total fluoroscopy time: 28.3 minutes. Estimated total patient dose reported as (Ka,r): 676 mGy. Signed: Iban Javier MD Report Verified Date/Time:06/07/2018 17:59:35 Reading Location: [place] [id number] Angio Body Reading Room Procedure Note Interface, External Ris In - 06/07/2018 6:01 PM INSOLE BEVELER FINAL REPORT History: Lymphoma, biliary obstruction. PROCEDURE: Following informed written consent, general endotracheal anesthesia was administered and the patient's right lateral abdominal wall was prepped and draped in the usual sterile manner. Using a 21-gauge Chiba needle, fluoroscopic guidance and a right mid axillary approach, access was gained to the intrahepatic bile duct. Percutaneous transhepatic cholangiogram was performed. A second 21-gauge Chiba needle was then used to access a more peripheral right intrahepatic duct. An 018 wire was advanced through the needle centrally into the common hepatic duct. An AccuStick sheath was placed. Repeat contrast injection was performed to confirm position of the AccuStick sheath and the common hepatic duct. An 035 angled Glidewire and 4 Lebanese Berenstein catheter were used to carefully traverse the common bile duct and select the duodenum. The Glidewire was then exchanged through the catheter for an Amplatz wire. The tract was dilated. A 9 Lebanese peel-away sheath was placed. An 8.5 Lebanese internal/external biliary drainage catheter was then placed over the wire and through the peel-away sheath into position with its distal tip coiled in the duodenum and sideholes extending proximally into the common hepatic duct. Repeat contrast injection was performed to confirm position of the catheter. The catheter was then secured to the skin using 2-0 silk suture and placed to external gravity bag drainage. Overall, the patient tolerated the procedure well without immediate complications and was discharged from the department to the recovery room in stable condition. FINDINGS: Multiple images obtained during the procedure demonstrate mild intrahepatic biliary ductal dilatation. There is a high-grade long segment stricture of the distal common bile duct to the level of the ampulla. A small amount of contrast is seen flowing through the stricture into the common duct. Following placement of the internal/external biliary drainage catheter, the catheter is noted to lie in expected position with its distal tip coiled in the duodenum. Sideholes extending proximally into the common hepatic duct. IMPRESSION: 1. 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 This is consistent with patient's known lymphadenopathy in this area. 2. Successful uncomplicated placement of an 8.5 Lebanese right internal/external biliary drainage catheter. Total fluoroscopy time: 28.3 minutes. Estimated total patient dose reported as (Ka,r): 676 mGy. Signed: Iban Javier MD Report Verified Date/Time: 06/07/2018 17:59:35 Reading Location: [place] [address] Angio Body Reading Room Performing Organization Address City/State/Zipcode Phone Number RIS REPORT OF PROCEDURE - ENDOSCOPY URL (06/07/2018 12:52 PM INSOLE BEVELER) Narrative Performed At REPORT OF PROCEDURE - ENDOSCOPY URL (06/07/2018 12:49 PM INSOLE BEVELER) Narrative Performed At PULMONARY FUNCTION - SCAN (06/07/2018 7:51 AM INSOLE BEVELER) Narrative Performed At Blood Culture - Routine (Left Venipuncture) (06/07/2018 5:47 AM INSOLE BEVELER)Only the most recent of2 resultswithin the time period is included. Result No growth in 5 days [facility] Specimen Blood - Arm, Left Performing Organization Address City/State/Zipcode Phone Number [place] [phone] [place] [address] [phone] CENTER ECHOCARDIOGRAM REPORT - SCAN (06/05/2018 9:20 PM INSOLE BEVELER) Narrative Performed At US testicular with doppler (06/05/2018 9:11 PM INSOLE BEVELER) Narrative Performed At FINAL REPORT [facility] U/S, TESTICULAR, WITH DOPPLER CLINICAL INDICATION: left testicaular pain COMPARISON: None TECHNIQUE: The scrotum was evaluated using real-time mriamontes scale and color and spectral Doppler sonography. FINDINGS: Right testis: Size: 3.7 x 1.7 x 3.1 cm Echotexture: Normal with no focal lesions. Color Doppler: Preserved vascular flow. A cystic structure anterior to the epididymis (image 27) and favored to be secondary from the epididymis measures 2.9 x 0.8 x 1.9 cm. It is unclear if this represents a fluid-filled loop of bowel or another fluid-filled structure. No internal vascularity or internal echoes are identified. Left testis: Size: 3.7 x 1.7 x 2.8 cm Echotexture: Normal with no focal lesions. Color Doppler: Preserved vascular flow. Epididymides: Size: Normal without focal lesion. Color Doppler: Preserved vascular flow. Hydrocele: Trace hydrocele bilaterally Varicocele: None Additional findings: None. IMPRESSION: Trace hydroceles. No etiology of left testicular pain identified. Signed: Magda Bennett MD Report Verified Date/Time:06/06/2018 01:46:19 Reading Location: [address] Neuro Reading Room Procedure Note Interface, External Ris In - 06/06/2018 1:56 AM INSOLE BEVELER FINAL REPORT U/S, TESTICULAR, WITH DOPPLER CLINICAL INDICATION: left testicaular pain COMPARISON: None TECHNIQUE: The scrotum was evaluated using real-time miramontes scale and color and spectral Doppler sonography. FINDINGS: Right testis: Size: 3.7 x 1.7 x 3.1 cm Echotexture: Normal with no focal lesions. Color Doppler: Preserved vascular flow. A cystic structure anterior to the epididymis (image 27) and favored to be secondary from the epididymis measures 2.9 x 0.8 x 1.9 cm. It is unclear if this represents a fluid-filled loop of bowel or another fluid-filled structure. No internal vascularity or internal echoes are identified. Left testis: Size: 3.7 x 1.7 x 2.8 cm Echotexture: Normal with no focal lesions. Color Doppler: Preserved vascular flow. Epididymides: Size: Normal without focal lesion. Color Doppler: Preserved vascular flow. Hydrocele: Trace hydrocele bilaterally Varicocele: None Additional findings: None. IMPRESSION: Trace hydroceles. No etiology of left testicular pain identified. Signed: Magda Bennett MD Report Verified Date/Time: 06/06/2018 01:46:19 Reading Location: [facility] C013V Neuro Reading Room Performing Organization Address City/State/Zipcode Phone Number [facility] 2D Echo W/Doppler(CW/PW/Color) (06/05/2018 9:38 AM INSOLE BEVELER) Ejection Fraction [facility] ECHO HEARTLAB MKCKESSON CPA Narrative Performed At Transthoracic Echocardiography Report (TTE) [facility] ECHO HEARTLAB AdkuESSON [facility] Demographics Patient NameMORA, ARMANDODate of Study06/05/2018 GARCIA Gender Male Visit [id number] Race [id number] Number Date of 1960 ReferringChristopher Physician RembertoMD Age 57 year(s) SonographGonzalo Wilson RDCS Interpreting Parviz Madrid MD Physician Procedure Type of Study TTE procedure:2DECHO W DOPPLER(CW/PW/COLOR) (Routine) Indications:Mass. Clinical History HGB 12.4 HCT 36.7 % GERD Height: 64 inches Weight: 82.55 kg (182 lbs) BSA: 1.88 m^2 BMI: 31.24 kg/m^2 HR: 90 bpm BP: 143/85 mmHg Summary Normal left ventricular chamber size. Normal wall thickness. Normal overall left ventricular systolic function. No apparent segmental wall motion abnormalities. Estimated LVEF by qualitative assessment is normal (>60%) . Grade 1 diastolic dysfunction (impaired relaxation and low-normal LA pressure). The right ventricular chamber size and systolic function are within normal limits. Estimated peak systolic PA pressure is 35-40 mmHg . Signature Findings Left Ventricle Normal left ventricular chamber size. Normal wall th ickness. Normal overall left ventricular systolic fu nction. No apparent segmental wall motion ab normalities. Es timated LVEF by qualitative assessment is normal (> 60%) . Gr miquel 1 diastolic dysfunction (impaired relaxation an d low-normal LA pressure). Left AtriumLA size is normal (16-34 ml/m2) . Right VentricleThe right ventricular chamber size and systolic fu nction are within normal limits. Right Atrium RA size is normal. Aortic Valve Normal AoV structure. Mitral Valve Normal MV structure. Tricuspid ValveTV structure is normal. Es timated peak systolic PA pressure is 35-40 mmHg . Pulmonic Valve A trace of pulmonary regurgitation. No rmal PV structure appears normal by available vi ews. AortaAortic root size (SInus of Valsalva diameter) is no rmal . PericardiumNo pericardial effusion is visualized. IVC/SVC/PA/PV/PleuralThe estimated RA pressure by IVC dynamics 0-5mmHg . Chambers/Structures Left Atrium LA Volume: 30.97 ml LA Area: 12.93 cm^2 LA Vol. Index: 16 ml/m^2 Left Ventricle LVIDd: 4.43 cm LVEDV:89.3 ml LV Septum Diastolic: 1.12 cm LV PW Diastolic: 0.91 cm LVEDV White's:36.82 ml LV Length: 6.76 cm LVESV White's:14.09 ml LVEF White's: 61.7 % LVEDVI: 20 ml/m^2 LVESVI: 7 ml/m^2 LVOT Diameter: 2.19 cm Doppler/Quantitative Measurements Mitral Valve MV Peak E-Wave: 0.77 m/s MV Peak A-Wave: 0.78 m/s E/A Ratio: 0.99 Peak Gradient: 2.39 mmHg Deceleration Time: 211.9 msec MV Leo. Peak: Aortic Valve Peak Velocity: 1.36 m/sMean Velocity: 0.94 m/s Peak Gradient: 7.39 mmHg Mean Gradient: 4.03 mmHg AV Area (continuity): 3.91 cm^2 AV VTI: 22.22 cm AV DVI: 1.04 LVOT Peak Velocity: 1.29 m/s Peak Gradient: 6.73 mmHg Mean Velocity: 0.81 m/s Mean Gradient: 3.13 mmHg LVOT Diameter: 2.19 cmLVOT VTI: 23.06 cm LVOT Area: 3.77 cm^2LVOT SV:86.82 ml LVOT CO: 7.81 l/min LVOT CI: 4.15 l/min/m^2 Tricuspid Valve TR Velocity: 3.01 m/s TR Gradient: 36.13 mmHg Procedure Note Interface, External Ris In - 06/05/2018 4:23 PM INSOLE BEVELER Transthoracic Echocardiography Report (TTE) Demographics Patient Name SIMI CHAUDHRY Date of Study 06/05/2018 GARCIA Gender Male Visit Number [id number] Race Room Number [id number] Number Date of 1960 Referring Physician DAYNA Monreal Age 57 year(s) Hand Candy Cutter Izabel Wilson [facility] Interpreting Parviz Madrid MD Physician Procedure Type of Study TTE procedure:2DECHO W DOPPLER(CW/PW/COLOR) (Routine) Indications:Mass. Clinical History HGB 12.4 HCT 36.7 % GERD Height: 64 inches Weight: 82.55 kg (182 lbs) BSA: 1.88 m^2 BMI: 31.24 kg/m^2 HR: 90 bpm BP: 143/85 mmHg Summary Normal left ventricular chamber size. Normal wall thickness. Normal overall left ventricular systolic function. No apparent segmental wall motion abnormalities. Estimated LVEF by qualitative assessment is normal (>60%) . Grade 1 diastolic dysfunction (impaired relaxation and low-normal LA pressure). The right ventricular chamber size and systolic function are within normal limits. Estimated peak systolic PA pressure is 35-40 mmHg . Signature Findings Left Ventricle Normal left ventricular chamber size. Normal wall thickness. Normal overall left ventricular systolic function. No apparent segmental wall motion abnormalities. Estimated LVEF by qualitative assessment is normal (>60%) . Grade 1 diastolic dysfunction (impaired relaxation and low-normal LA pressure). Left Atrium LA size is normal (16-34 ml/m2) . Right Ventricle The right ventricular chamber size and systolic function are within normal limits. Right Atrium RA size is normal. Aortic Valve Normal AoV structure. Mitral Valve Normal MV structure. Tricuspid Valve TV structure is normal. Estimated peak systolic PA pressure is 35-40 mmHg . Pulmonic Valve A trace of pulmonary regurgitation. Normal PV structure appears normal by available views. Aorta Aortic root size (SInus of Valsalva diameter) is normal . Pericardium No pericardial effusion is visualized. IVC/SVC/PA/PV/Pleural The estimated RA pressure by IVC dynamics 0-5mmHg . Chambers/Structures Left Atrium LA Volume: 30.97 ml LA Area: 12.93 cm^2 LA Vol. Index: 16 ml/m^2 Left Ventricle LVIDd: 4.43 cm LVEDV:89.3 ml LV Septum Diastolic: 1.12 cm LV PW Diastolic: 0.91 cm LVEDV White's:36.82 ml LV Length: 6.76 cm LVESV White's:14.09 ml LVEF White's: 61.7 % LVEDVI: 20 ml/m^2 LVESVI: 7 ml/m^2 LVOT Diameter: 2.19 cm Doppler/Quantitative Measurements Mitral Valve MV Peak E-Wave: 0.77 m/s MV Peak A-Wave: 0.78 m/s E/A Ratio: 0.99 Peak Gradient: 2.39 mmHg Deceleration Time: 211.9 msec MV Leo. Peak: Aortic Valve Peak Velocity: 1.36 m/s Mean Velocity: 0.94 m/s Peak Gradient: 7.39 mmHg Mean Gradient: 4.03 mmHg AV Area (continuity): 3.91 cm^2 AV VTI: 22.22 cm AV DVI: 1.04 LVOT Peak Velocity: 1.29 m/s Peak Gradient: 6.73 mmHg Mean Velocity: 0.81 m/s Mean Gradient: 3.13 mmHg LVOT Diameter: 2.19 cm LVOT VTI: 23.06 cm LVOT Area: 3.77 cm^2 LVOT SV:86.82 ml LVOT CO: 7.81 l/min LVOT CI: 4.15 l/min/m^2 Tricuspid Valve TR Velocity: 3.01 m/s TR Gradient: 36.13 mmHg Performing Organization Address City/[facility] Hospitalcode Phone Number [facility] ECHO HEARTLAB MKCKESSON CPACS POC-Glucose meter (06/03/2018 9:38 AM INSOLE BEVELER) POC-Glucose Meter 70Comment: TESTED AT 70 - 110 mg/dL [address] [address] Specimen Blood Performing Organization Address [facility] Hospital[facility] Phone Number [address] [address] CENTER [place] ERCP (06/03/2018 9:20 AM INSOLE BEVELER) Narrative Performed At FINAL REPORT [facility] Fluoroscopic spot imaging was performed at the time of the procedure by the ordering service. This examination is nondiagnostic. Fluoroscopy was not performed by the undersigned, and the radiologist was not present at the time of examination. Interpretation of the images was not requested. Total fluoroscopy time: 4.4 minutes Total number of films: 1 Please refer to the referring physician's procedure report for complete detail. Signed: Manny Smith MD Report Verified Date/Time:06/03/2018 14:28:48 Reading Location: [facility] C013W Consult Reading Room Procedure Note Interface, External Ris In - 06/03/2018 2:30 PM INSOLE BEVELER FINAL REPORT Fluoroscopic spot imaging was performed at the time of the procedure by the ordering service. This examination is nondiagnostic. Fluoroscopy was not performed by the undersigned, and the radiologist was not present at the time of examination. Interpretation of the images was not requested. Total fluoroscopy time: 4.4 minutes Total number of films: 1 Please refer to the referring physician's procedure report for complete detail. Signed: Manny Smith MD Report Verified Date/Time: 06/03/2018 14:28:48 Reading Location: [facility] C013W Consult Reading Room Performing Organization Address City/State/Zipcode Phone Number GE RIS Tissue Exam (06/03/2018 8:25 AM INSOLE BEVELER) Case Report Surgical Pathology Report Case: [id number] [facility] Authorizing Provider:Henry Reyes MDCollected: 06/03/2018 0825 [facility] Ordering Location: [address] Received: 06/03/2018 1435 Service Pathologist: Ana Fernandez MD Specimen:Pancreas, Cheryl Pancreatic Lymphnode ADDENDUM As reported by Attender, [facility] cytogenetic FISH results are [facility] POSITIVE for a variant t(14;18)/IGH-BCL2 gene rearrangement and a 3'MYC gene deletion with gains of MYC, however a variant MYC rearrangement with an unknown partner cannot be excluded. Therefore, a "double hit" lymphoma cannot be excluded without ruling out a variant MYC rearrangement (see attached cytogenetics report). DIAGNOSIS LYMPH NODE, PERIPANCREATIC, CORE NEEDLE BIOPSY: [facility] -HIGH GRADE B-CELL LYMPHOMA; PENDING CYTOGENETIC FISH STUDIES [facility] -SEE COMMENT Signing Pathologist Direct Phone Line: [phone] COMMENT Morphologic review, together [facility] with the flow cytometric studies [facility] ([id number]) and immunohistochemical stains (see microscopic), are diagnostic of a B cell lymphoid neoplasm with a germinal center phenotype and high grade features, including overexpression of the MYC and BCL2 proteins, and an increased Ki-67 proliferative index of 95%. Cytogenetic FISH studies to evaluate for MYC, BCL2, and/or BCL6 gene rearrangements have been requested for further characterization. These results will follow in an addendum. Dr. Ana Fernandez discussed the case with Dr. Jamaica Roman on 06/04/2018. CPT Code(s) 37107 ,94786, 92173 x 9 [facility] CLINICAL HISTORY Obstructive jaundice, [facility] lymphadenopathy [facility] SPECIMEN SOURCE Peripancreatic lymph node [facility] GROSS DESCRIPTION The specimen is received in a [facility] formalin-filled container [facility] labeled with the patient's information and labeled "peripancreatic lymph node" and consists of multiple small fragments of mckeon-red soft tissue all measuring less than 0.1 to 0.1 cm, submitted entirely in A1. CG/ew MICROSCOPIC DESCRIPTION Sections show predominantly [facility] [facility] crushed lymphoid cells. In areas [facility] with better cellular preservation, the neoplastic cells have fine chromatin, occasional small nucleoli, and are associated with numerous mitoses and apoptotic debris. Immunohistochemical stains performed show the neoplastic cells are CD20 positive, MYC positive (95% of neoplastic population positive), BCL2 positive, BCL6 positive, cyclin D1 negative, MUM1 negative, TdT negative, with a Ki67 proliferation index of 95%. CD3 highlights scattered background T cells. No follicular dendritic cell meshworks are identified with CD21. SPECIAL STUDIES The interpretation of this case included the use of immunohistochemistry or special stains. [facility] Block A1: CD20, CD3, MYC, MUM1, BCL2, BCL6, Ki67, Cyclin D1, TdT, CD21 Immunohistochemistry technical testing was performed at [facility], Pathology Laboratory where it was developed and its performance characteristics were determined. It has not be en cleared or approved by the U.S. Food and Drug Administration. The FDA has determined that such clearance or approval is not necessary. The test is used for clinical purposes. It should not be regarde d as investigational or for research. This laboratory is certified under the Clinical Laboratory Improvement Amendments of 1988 (CLIA-88) as qualified to perform high complexity clinical laboratory testing. Specimen Tissue - Pancreas Narrative Performed At Performing Organization Address City/State/Zipcode Phone Number [facility] [address] [place], [place] [phone] [place] FINE NEEDLE ASPIRATE (FNA) REQUEST (06/03/2018 8:19 AM INSOLE BEVELER) Cytology See Separate Report [facility] Specimen Fine Needle Aspirate - Pancreatic Performing Organization Address City/State/Zipcode Phone Number [address] [address] [place] Fine Needle Aspirate by Clinician (06/03/2018 8:19 AM INSOLE BEVELER) Case Report Medical Cytology Report Case: [id number] [facility] Authorizing Provider:Henry Reyes MDCollected: 06/03/2018 0819 [facility] Ordering Location: [address] Received: 06/03/2018 1057 Service Pathologist: Britt Mckeon MD Specimen:Pancreatic, Cheryl pancreatic lymph node ADDENDUM This addendum is issued to update the diagnosis based on the flow report on [id number] and the surgical correlate [id number]: [facility] PERIPANCREATIC LYMPH NODE FNA BY CLINICIAN (CYTOSPINS AND CELL BLOCK OF ASPIRATE): - HIGH GRADE B-CELL LYMPHOMA; 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 FOR EPITHELIAL MALIGNANCY DIAGNOSIS PERIPANCREATIC LYMPH NODE FNA BY CLINICIAN (CYTOSPINS AND CELL BLOCK OF ASPIRATE): [facility] - NEGATIVE FOR EPITHELIAL MALIGNANCY (SEE COMMENT) [facility] Signing Pathologist Direct Phone Line: [phone] COMMENT Please refer to to cases [facility] [id number] and [id number] for [facility] additional information. CPT Code(s) 15298, 07171 [facility] CLINICAL DATA Lymphadenopathy [facility] SPECIMEN SOURCE PERIPANCREATIC LYMPH NODE [facility] FNA [facility] GROSS DESCRIPTION 15 mls in cytorich red; 4 cytospins, cell block [facility] Collected: [id number] [facility] Received: [id number] Gross assessment was [facility] performed at Center, Department of [facility] Pathology, [address] [place] [address], Technical component was [facility] performed at [place], Department of [facility] Pathology, [address] [place] [address], Professional component [facility] was performed at [place], Department of [facility] Pathology, [address] [place] [address], Specimen Fine Needle Aspirate - Pancreatic Narrative Performed At Performing Organization Address City/State/Zipcode Phone Number [phone] [place] [address] abdomen/pelvis with IV contrast (06/02/2018 8:10 PM INSOLE BEVELER) Narrative Performed At FINAL REPORT [facility] History: Adenopathy, suspected lymphoma. TECHNIQUE: Helical CT of the wrist, abdomen and pelvis were performed following the uneventful administration of intravenous and positive oral contrast utilizing multiple windows, sagittal and coronal reformations. This exam was performed according to our departmental diverticulitis. Optimization program which includes automated exposure control, adjustment of the mA and/or KV according to the patient's size and/or use of iterative reconstruction technique. FINDINGS: No comparisons are available. Chest CT: Extensive mediastinal adenopathy is present, the largest nodes in the subcarinal and pretracheal spaces. Enlarged left supraclavicular lymph nodes are also identified. The heart, mediastinum and great vessels are otherwise unremarkable. Thyroid gland is unremarkable. Central airways are patent. There is slight increased opacity in the right lower lobe, possibly atelectasis and/or lung scarring. Lungs are otherwise clear. No suspicious pulmonary nodules or masses. Bones are unremarkable. Abdominal CT: Mild intrahepatic biliary ductal dilatation is present. The gallbladder is mildly distended. No visible stones or sludge. The liver and remaining solid abdominal organs including the spleen, kidneys, visible portions of the pancreas and adrenal glands are otherwise unremarkable. The stomach is mildly distended with contrast and fluid. The colon is decompressed and its wall is thickened, possibly related to its decompressed state. Scattered colonic diverticula are present. Visible portions of the small bowel are normal. No evidence for obstruction. No free air or evidence for perforation. No abdominal fluid collections. Extensive and bulky retroperitoneal adenopathy is present. The largest jeniffer mass measures up to 10 x 11 cm and encases both the superior mesenteric artery and vein. It also partially effaces or compresses the inferior vena cava and the central splenic vein. This retroperitoneal adenopathy also causes compression of the distal duodenum, possibly accounting for the mildly dilated stomach. Vessels are unremarkable. Bones are unremarkable. Pelvic CT: Colonic diverticula are present. The colon is decompressed and there are mild inflammatory changes of the surrounding fat in the region of the sigmoid colon. Given the diffuse hazy appearance of the mesenteric fat, this is unlikely to represent a focal inflammatory process such as diverticulitis. Pelvic organs including the rectum, prostate gland, urinary bladder and other visible portions of the bowel are unremarkable. The appendix is not definitively identified and may be surgically absent. No indirect signs for acute appendicitis. No pelvic adenopathy is seen. No pelvic fluid collections. Vessels and bones are unremarkable. IMPRESSION: 1. Extensive and bulky mediastinal and retroperitoneal adenopathy as described above, most consistent with lymphoma. 2. Scattered colonic diverticula without definitive evidence for acute diverticulitis. Extensive stranding of the mesenteric fat is seen, possibly representing edema. 3. Mildly distended gallbladder and mild intrahepatic biliary ductal dilatation. 4. Focal opacity in the right lower lobe, likely atelectasis. 5. Mildly distended stomach and partially effaced and possibly obstructed distal duodenum. Signed: Iban Javier MD Report Verified Date/Time:06/02/2018 21:26:56 Reading Location: [facility] Diagnostic Imaging Reading Room - [place] [address] Procedure Note Interface, External Ris In - 06/02/2018 9:29 PM INSOLE BEVELER FINAL REPORT History: Adenopathy, suspected lymphoma. TECHNIQUE: Helical CT of the wrist, abdomen and pelvis were performed following the uneventful administration of intravenous and positive oral contrast utilizing multiple windows, sagittal and coronal reformations. This exam was performed according to our departmental diverticulitis. Optimization program which includes automated exposure control, adjustment of the mA and/or KV according to the patient's size and/or use of iterative reconstruction technique. FINDINGS: No comparisons are available. Chest CT: Extensive mediastinal adenopathy is present, the largest nodes in the subcarinal and pretracheal spaces. Enlarged left supraclavicular lymph nodes are also identified. The heart, mediastinum and great vessels are otherwise unremarkable. Thyroid gland is unremarkable. Central airways are patent. There is slight increased opacity in the right lower lobe, possibly atelectasis and/or lung scarring. Lungs are otherwise clear. No suspicious pulmonary nodules or masses. Bones are unremarkable. Abdominal CT: Mild intrahepatic biliary ductal dilatation is present. The gallbladder is mildly distended. No visible stones or sludge. The liver and remaining solid abdominal organs including the spleen, kidneys, visible portions of the pancreas and adrenal glands are otherwise unremarkable. The stomach is mildly distended with contrast and fluid. The colon is decompressed and its wall is thickened, possibly related to its decompressed state. Scattered colonic diverticula are present. Visible portions of the small bowel are normal. No evidence for obstruction. No free air or evidence for perforation. No abdominal fluid collections. Extensive and bulky retroperitoneal adenopathy is present. The largest jeniffer mass measures up to 10 x 11 cm and encases both the superior mesenteric artery and vein. It also partially effaces or compresses the inferior vena cava and the central splenic vein. This retroperitoneal adenopathy also causes compression of the distal duodenum, possibly accounting for the mildly dilated stomach. Vessels are unremarkable. Bones are unremarkable. Pelvic CT: Colonic diverticula are present. The colon is decompressed and there are mild inflammatory changes of the surrounding fat in the region of the sigmoid colon. Given the diffuse hazy appearance of the mesenteric fat, this is unlikely to represent a focal inflammatory process such as diverticulitis. Pelvic organs including the rectum, prostate gland, urinary bladder and other visible portions of the bowel are unremarkable. The appendix is not definitively identified and may be surgically absent. No indirect signs for acute appendicitis. No pelvic adenopathy is seen. No pelvic fluid collections. Vessels and bones are unremarkable. IMPRESSION: 1. Extensive and bulky mediastinal and retroperitoneal adenopathy as described above, most consistent with lymphoma. 2. Scattered colonic diverticula without definitive evidence for acute diverticulitis. Extensive stranding of the mesenteric fat is seen, possibly representing edema. 3. Mildly distended gallbladder and mild intrahepatic biliary ductal dilatation. 4. Focal opacity in the right lower lobe, likely atelectasis. 5. Mildly distended stomach and partially effaced and possibly obstructed distal duodenum. Signed: Iban Javier MD Report Verified Date/Time: 06/02/2018 21:26:56 Reading Location: [facility] Diagnostic Imaging Reading Room - [place] [address] Performing Organization Address City/State/Zipcode Phone Number [employer] CT chest with IV contrast (06/02/2018 8:10 PM INSOLE BEVELER) Narrative Performed At FINAL REPORT [facility] History: Adenopathy, suspected lymphoma. TECHNIQUE: Helical CT of the wrist, abdomen and pelvis were performed following the uneventful administration of intravenous and positive oral contrast utilizing multiple windows, sagittal and coronal reformations. This exam was performed according to our departmental diverticulitis. Optimization program which includes automated exposure control, adjustment of the mA and/or KV according to the patient's size and/or use of iterative reconstruction technique. FINDINGS: No comparisons are available. Chest CT: Extensive mediastinal adenopathy is present, the largest nodes in the subcarinal and pretracheal spaces. Enlarged left supraclavicular lymph nodes are also identified. The heart, mediastinum and great vessels are otherwise unremarkable. Thyroid gland is unremarkable. Central airways are patent. There is slight increased opacity in the right lower lobe, possibly atelectasis and/or lung scarring. Lungs are otherwise clear. No suspicious pulmonary nodules or masses. Bones are unremarkable. Abdominal CT: Mild intrahepatic biliary ductal dilatation is present. The gallbladder is mildly distended. No visible stones or sludge. The liver and remaining solid abdominal organs including the spleen, kidneys, visible portions of the pancreas and adrenal glands are otherwise unremarkable. The stomach is mildly distended with contrast and fluid. The colon is decompressed and its wall is thickened, possibly related to its decompressed state. Scattered colonic diverticula are present. Visible portions of the small bowel are normal. No evidence for obstruction. No free air or evidence for perforation. No abdominal fluid collections. Extensive and bulky retroperitoneal adenopathy is present. The largest jeniffer mass measures up to 10 x 11 cm and encases both the superior mesenteric artery and vein. It also partially effaces or compresses the inferior vena cava and the central splenic vein. This retroperitoneal adenopathy also causes compression of the distal duodenum, possibly accounting for the mildly dilated stomach. Vessels are unremarkable. Bones are unremarkable. Pelvic CT: Colonic diverticula are present. The colon is decompressed and there are mild inflammatory changes of the surrounding fat in the region of the sigmoid colon. Given the diffuse hazy appearance of the mesenteric fat, this is unlikely to represent a focal inflammatory process such as diverticulitis. Pelvic organs including the rectum, prostate gland, urinary bladder and other visible portions of the bowel are unremarkable. The appendix is not definitively identified and may be surgically absent. No indirect signs for acute appendicitis. No pelvic adenopathy is seen. No pelvic fluid collections. Vessels and bones are unremarkable. IMPRESSION: 1. Extensive and bulky mediastinal and retroperitoneal adenopathy as described above, most consistent with lymphoma. 2. Scattered colonic diverticula without definitive evidence for acute diverticulitis. Extensive stranding of the mesenteric fat is seen, possibly representing edema. 3. Mildly distended gallbladder and mild intrahepatic biliary ductal dilatation. 4. Focal opacity in the right lower lobe, likely atelectasis. 5. Mildly distended stomach and partially effaced and possibly obstructed distal duodenum. Signed: Iban Javier MD Report Verified Date/Time:06/02/2018 21:26:56 Reading Location: [facility] Diagnostic Imaging Reading Room - [place] [address] Procedure Note Interface, External Ris In - 06/02/2018 9:29 PM INSOLE BEVELER FINAL REPORT History: Adenopathy, suspected lymphoma. TECHNIQUE: Helical CT of the wrist, abdomen and pelvis were performed following the uneventful administration of intravenous and positive oral contrast utilizing multiple windows, sagittal and coronal reformations. This exam was performed according to our departmental diverticulitis. Optimization program which includes automated exposure control, adjustment of the mA and/or KV according to the patient's size and/or use of iterative reconstruction technique. FINDINGS: No comparisons are available. Chest CT: Extensive mediastinal adenopathy is present, the largest nodes in the subcarinal and pretracheal spaces. Enlarged left supraclavicular lymph nodes are also identified. The heart, mediastinum and great vessels are otherwise unremarkable. Thyroid gland is unremarkable. Central airways are patent. There is slight increased opacity in the right lower lobe, possibly atelectasis and/or lung scarring. Lungs are otherwise clear. No suspicious pulmonary nodules or masses. Bones are unremarkable. Abdominal CT: Mild intrahepatic biliary ductal dilatation is present. The gallbladder is mildly distended. No visible stones or sludge. The liver and remaining solid abdominal organs including the spleen, kidneys, visible portions of the pancreas and adrenal glands are otherwise unremarkable. The stomach is mildly distended with contrast and fluid. The colon is decompressed and its wall is thickened, possibly related to its decompressed state. Scattered colonic diverticula are present. Visible portions of the small bowel are normal. No evidence for obstruction. No free air or evidence for perforation. No abdominal fluid collections. Extensive and bulky retroperitoneal adenopathy is present. The largest jeniffer mass measures up to 10 x 11 cm and encases both the superior mesenteric artery and vein. It also partially effaces or compresses the inferior vena cava and the central splenic vein. This retroperitoneal adenopathy also causes compression of the distal duodenum, possibly accounting for the mildly dilated stomach. Vessels are unremarkable. Bones are unremarkable. Pelvic CT: Colonic diverticula are present. The colon is decompressed and there are mild inflammatory changes of the surrounding fat in the region of the sigmoid colon. Given the diffuse hazy appearance of the mesenteric fat, this is unlikely to represent a focal inflammatory process such as diverticulitis. Pelvic organs including the rectum, prostate gland, urinary bladder and other visible portions of the bowel are unremarkable. The appendix is not definitively identified and may be surgically absent. No indirect signs for acute appendicitis. No pelvic adenopathy is seen. No pelvic fluid collections. Vessels and bones are unremarkable. IMPRESSION: 1. Extensive and bulky mediastinal and retroperitoneal adenopathy as described above, most consistent with lymphoma. 2. Scattered colonic diverticula without definitive evidence for acute diverticulitis. Extensive stranding of the mesenteric fat is seen, possibly representing edema. 3. Mildly distended gallbladder and mild intrahepatic biliary ductal dilatation. 4. Focal opacity in the right lower lobe, likely atelectasis. 5. Mildly distended stomach and partially effaced and possibly obstructed distal duodenum. Signed: Iban Javier MD Report Verified Date/Time: 06/02/2018 21:26:56 Reading Location: [facility] Diagnostic Imaging Reading Room - [place] [address] Performing Organization Address City/State/Zipcode Phone Number [facility] Hepatitis B Panel (06/02/2018 5:41 PM INSOLE BEVELER) Hep B Core Total Ab REACTIVE (A) Nonreactive [facility] Hep B S Ab 735.9 (H) <8.0 mIU/mL [facility] hepatitis B Surface Ag NON-REACTIVE Nonreactive [facility] Specimen Blood - Arm, Right Performing Organization Address [facility]/Zipcode Phone Number [facility] [address] [place] [phone] CENTER Hepatitis C antibody (06/02/2018 5:41 PM INSOLE BEVELER) Hepatitis C Ab NON-REACTIVE Nonreactive [facility] Specimen Blood - Arm, Right Performing Organization Address [facility]/Zipcode Phone Number [address] [address] [phone] CENTER Urinalysis w/Microscopic (06/02/2018 4:06 PM INSOLE BEVELER) Color, UA Dark Yellow [facility] Clarity, UA Clear [facility] Specific [place], UA 1.026 1.001 - 1.035 [facility] pH, UA 6.5 5.0 - 8.0 [facility] Protein, UA 30 mg/dL (A) Negative [facility] Glucose, UA Negative Negative [facility] Ketones, UA >150 mg/dL (A) Negative [facility] Bilirubin, UA Positive (A) Negative [facility] Blood, UA Negative Negative [facility] Nitrite, UA Negative Negative [facility] Leukocytes, UA Negative Negative [facility] Urobilinogen, UA 2.0 (H) 0.2 - 1.0 mg/dL [facility] RBC, UA 1 /HPF [facility] WBC, UA 1 /HPF [facility] Mucus Occasional [facility] Squam Epithel, UA <1 /HPF [facility] Specimen Source [facility] Specimen Urine Performing Organization Address City/State/Zipcode Phone Number [facility] [address] [place] [address] CENTER Pulmonary Funct Lab Spirometry (06/02/2018 2:41 PM INSOLE BEVELER) Narrative Performed At Eze Diaz RRT, CLINICAL MICROBIOLOGIST 06/02/20183:10 PM [facility] PFT CHARTING REPORT Infection Control/Hand Hygiene procedures followed throughout the encounter with patient: Yes Patient Identification Method: Patient name verified on armband, and Medical record on armband, Is the order complete?: Yes Account ID#: [id number] Patient Name: Simi Chaudhry Birthdate: 1960 Age: 57 y.o.Sex: male Admission Date: 06/02/2018Patient Status: Inpatient Reasons/Symptom for having the Test?: post transplant protocol Type of study/treatment ordered by physician: Spirometry Lab Results Component Value Date HGB 13.3 (L) 06/02/2018 Ranges: Adult Male 13 - 16.8 g/dlAdult Female 12 - 15 g/dl 6 Minute Walk (read only) 06/02/2018 06/02/2018 06/02/2018 Pulse 94 - 101 SpO2 94 93 97 Study Date: 06/02/2018Study Time: 1441 ASSESSMENT History & Physical Mode of Arrival: Ambulatory Pulse: 100Resp: 18SPO2: 97 % RA Pain Assessment Pain:None TESTING/THERAPEUTICS Medications ordered or required for procedure: N/A PT EDUCATION/INSTRUCTIONS Barriers to learning: No known barriers to learning. Learning need identified: Yes, Patient/Family/[place] was informed of the ordered study by the physician Barriers to performing study or treatment: Patient has no known disability to perform the study or treatment. DISCHARGE The study was completed in accordance with the physician's order and patient released from the lab without adverse outcome. HIV-1 Antigen with HIV-1/2 Antibody (06/02/2018 6:06 AM INSOLE BEVELER) HIV-1 Antigen with HIV 1&2 NON-REACTIVE Nonreactive [facility] Antibody [facility] Specimen Blood - Arm, Right Performing Organization Address City/State/Zipcode Phone Number [facility] [address] [place] [address] [phone] CENTER Beta 2 microglobulin (06/02/2018 6:06 AM INSOLE BEVELER) B2 Microglobulin, Serum 2.51 < OR=2.51 mg/L [facility] Specimen Blood - Arm, Right Narrative Performed At Performing Lab [facility] [address] [address] Brandon Linares MD, PhD, JEAN MARIE Performing Organization Address City/State/[facility] Hospitalcode Phone Number [place] [address] [facility] [address] [facility] US abdomen complete (06/02/2018 2:25 AM INSOLE BEVELER) Narrative Performed At FINAL REPORT [facility] INDICATION: assess biliary system COMPARISON: None. TECHNIQUE:Real-time transabdominal miramontes scale and color Doppler ultrasound of the abdomen. FINDINGS: Liver: Size: 14.2cm. Echogenicity: Somewhat heterogeneous hepatic echotexture. Masses/lesions: There is a 2.6 x 2.8 x 2.5 cm hypoechoic nodule in the posterior aspect of the right liver targetoid appearance. Surface Nodularity: None. Intrahepatic bile ducts: Mild intrahepatic biliary ductal dilatation. Common bile duct: 0.6 cm. MPV: 1.1cm. Gallbladder: Stones: None. Sludge: None. Wall thickness: 0.3 cm. The gallbladder lumen is nondistended. Pericholecystic fluid: None. Sonographic Isbell's sign: No sonographic Isbell's sign. Pancreas: Head and uncinate process: Not well seen however there are multiple hypoechoic masses in the peripancreatic region the largest of which is posterior to the pancreatic tail measuring 11.2 x 8.8 x 12.9 cm. Body and tail: Not well-seen. Spleen: Size: 10.4cm. Echogenicity: Unremarkable. Right kidney: Size: 10.2 x 4.4 x 5.4 cm. Parenchyma: Normal echogenicity. No cysts. No stones. Hydronephrosis: None. Left kidney: Size: 11.6 x 6.0 x 6.1 cm. Parenchyma: Normal echogenicity. No cysts. No stones. Hydronephrosis: None. Ascites: None. Regional Vasculature: The visible abdominal aorta, IVC and hepatic veins are patent. The aorta measures 2.0 cm proximally, 1.8 cm in the midportion 1.6 cm distally. Additional findings: Multiple hypoechoic nodules in the kaushik hepatis region the largest of which measures 2.5 x 2.2 x 2.4 cm and represent peripancreatic lymph nodes.. IMPRESSION: Multiple hypoechoic peripancreatic masses the largest of which measures up to 11.1 cm as above with multiple abnormal kaushik hepatis lymph nodes. Additionally there is intrahepatic biliary ductal dilatation and a hypoechoic lesion in the right posterior liver concerning for metastatic disease. Recommend further evaluation with pancreatic protocol cross-sectional imaging. Signed: Russel Jenkins MD Report Verified Date/Time:06/02/2018 04:08:06 Reading Location: [address] Transitional Reading Room Procedure Note Interface, External Ris In - 06/02/2018 4:10 AM INSOLE BEVELER FINAL REPORT INDICATION: assess biliary system COMPARISON: None. TECHNIQUE: Real-time transabdominal miramontes scale and color Doppler ultrasound of the abdomen. FINDINGS: Liver: Size: 14.2cm. Echogenicity: Somewhat heterogeneous hepatic echotexture. Masses/lesions: There is a 2.6 x 2.8 x 2.5 cm hypoechoic nodule in the posterior aspect of the right liver targetoid appearance. Surface Nodularity: None. Intrahepatic bile ducts: Mild intrahepatic biliary ductal dilatation. Common bile duct: 0.6 cm. MPV: 1.1cm. Gallbladder: Stones: None. Sludge: None. Wall thickness: 0.3 cm. The gallbladder lumen is nondistended. Pericholecystic fluid: None. Sonographic Isbell's sign: No sonographic Isbell's sign. Pancreas: Head and uncinate process: Not well seen however there are multiple hypoechoic masses in the peripancreatic region the largest of which is posterior to the pancreatic tail measuring 11.2 x 8.8 x 12.9 cm. Body and tail: Not well-seen. Spleen: Size: 10.4cm. Echogenicity: Unremarkable. Right kidney: Size: 10.2 x 4.4 x 5.4 cm. Parenchyma: Normal echogenicity. No cysts. No stones. Hydronephrosis: None. Left kidney: Size: 11.6 x 6.0 x 6.1 cm. Parenchyma: Normal echogenicity. No cysts. No stones. Hydronephrosis: None. Ascites: None. Regional Vasculature: The visible abdominal aorta, IVC and hepatic veins are patent. The aorta measures 2.0 cm proximally, 1.8 cm in the midportion 1.6 cm distally. Additional findings: Multiple hypoechoic nodules in the kaushik hepatis region the largest of which measures 2.5 x 2.2 x 2.4 cm and represent peripancreatic lymph nodes.. IMPRESSION: Multiple hypoechoic peripancreatic masses the largest of which measures up to 11.1 cm as above with multiple abnormal kaushik hepatis lymph nodes. Additionally there is intrahepatic biliary ductal dilatation and a hypoechoic lesion in the right posterior liver concerning for metastatic disease. Recommend further evaluation with pancreatic protocol cross-sectional imaging. Signed: Russel Jenkins MD Report Verified Date/Time: 06/02/2018 04:08:06 Reading Location: [address] Transitional Reading Room Performing Organization Address City/State/Zipcode Phone Number GE RIS after 07/17/2017 Insurance Payer Benefit Plan / Group Subscriber ID Type Phone Address [facility] HMO POS SELECT xxxxxxxxx HMO/POS CARE CHOICE Advance Directives For more information, please contact:[address] [place] [phone] Code Status Date Activated Date Inactivated Comments Full Code 07/07/2018 11:54 AM 07/13/2018 2:53 PM This code status was determined by: Patient Full Code 06/02/2018 12:43 AM 06/17/2018 7:26 PM This code status was determined by: Patient
--- OUTSIDE RECORDS SUMMARY | 2018-07-18 18:21 | XMS REPORT ---
:1960 Author Organization [facility] Address [address] [place] [address] Care Team Providers Name Role Phone ELROYNUZHAT CORY Unavailable Unavailable IWONA MORGAN Unavailable Unavailable JAEL CONNELL Unavailable Unavailable Problems This patient has no known problems. Allergies, Adverse Reactions, Alerts This patient has no known allergies or adverse reactions. Medications This patient has no known medications. Results Test Description Test Time Test Comments Text Results Atomic Results Result Comments URIC ACID 2018-07-13 05:44:00 Test Item Value Reference Range Comments URIC ACID (BEAKER) (test vspx=330) 1.6 mg/dL 2.6-7.2 [id number] 05:36:00 Test Item Value Reference Range Comments MAGNESIUM (BEAKER) (test urmb=532) 1.8 mg/dL 1.6-2.6 [id number] 05:36:00 Test Item Value Reference Range Comments PHOSPHORUS (BEAKER) (test rxkx=030) 3.1 mg/dL 2.3-4.7 BASIC METABOLIC [id number] 05:36:00 Test Item Value Reference Range Comments SODIUM (BEAKER) (test 137 meq/L 136-145 usel=289) POTASSIUM (BEAKER) (test 3.4 meq/L 3.5-5.1 wkra=728) CHLORIDE (BEAKER) (test 104 meq/L 98-107 hpnc=649) CO2 (BEAKER) (test 26 meq/L 22-29 lqoc=258) BLOOD UREA NITROGEN 11 mg/dL 7-21 (BEAKER) (test nfoj=955) CREATININE (BEAKER) (test 0.59 mg/dL 0.57-1.25 zrdu=547) GLUCOSE RANDOM (BEAKER) 134 mg/dL 70-105 (test ljrw=187) CALCIUM (BEAKER) (test 8.3 mg/dL 8.4-10.2 orpk=810) EGFR (BEAKER) (test 141 mL/min/1.73 sq m ESTIMATED GFR IS NOT alig=1587) ACCURATE CREATININE CLEARANCE IN PREDICTING GLOMERULAR FILTRATION RATE. ESTIMATED GFR IS NOT APPLICABLE FOR DIALYSIS PATIENTS. HEPATIC FUNCTION [id number] 05:36:00 Test Item Value Reference Range Comments TOTAL PROTEIN (BEAKER) (test fxeq=799) 5.9 gm/dL 6.0-8.3 ALBUMIN (BEAKER) (test koku=3577) 2.7 g/dL 3.5-5.0 BILIRUBIN TOTAL (BEAKER) (test fdjz=066) 1.1 mg/dL 0.2-1.2 BILIRUBIN DIRECT (BEAKER) (test qxaz=195) 0.5 mg/dL 0.1-0.5 ALKALINE PHOSPHATASE (BEAKER) (test npno=238) 96 U/L 40-150 AST (SGOT) (BEAKER) (test rnrn=268) 28 U/L 5-34 ALT (SGPT) (BEAKER) (test egiz=258) 45 U/L 6-55 LACTATE DEHYDROGENASE (LDH)2018-07-13 05:36:00 Test Item Value Reference Range Comments LACTATE DEHYDROGENASE (BEAKER) (test mqko=030) 219 U/L 125-220 CBC W/PLT COUNT & AUTO [id number] 05:13:00 Test Item Value Reference Range Comments WHITE BLOOD CELL COUNT (BEAKER) (test xiot=088) 6.6 K/ L 3.5-10.5 RED BLOOD CELL COUNT (BEAKER) (test rojn=103) 3.40 M/ L 4.63-6.08 HEMOGLOBIN (BEAKER) (test bmts=395) 9.3 GM/DL 13.7-17.5 HEMATOCRIT (BEAKER) (test iliw=069) 28.6 % 40.1-51.0 MEAN CORPUSCULAR VOLUME (BEAKER) (test vpnu=960) 84.1 fL 79.0-92.2 MEAN CORPUSCULAR HEMOGLOBIN (BEAKER) (test 27.4 pg 25.7-32.2 jeqk=228) MEAN CORPUSCULAR HEMOGLOBIN CONC (BEAKER) (test 32.5 GM/DL 32.3-36.5 bxmb=940) RED CELL DISTRIBUTION WIDTH (BEAKER) (test 13.2 % 11.6-14.4 loaa=716) PLATELET COUNT (BEAKER) (test plri=198) 373 K/CU MM 150-450 MEAN PLATELET VOLUME (BEAKER) (test fqwp=450) 9.0 fL 9.4-12.4 NUCLEATED RED BLOOD CELLS (BEAKER) (test 0 /100 WBC 0-0 mvhr=202) NEUTROPHILS RELATIVE PERCENT (BEAKER) (test 82 % room=641) LYMPHOCYTES RELATIVE PERCENT (BEAKER) (test 16 % hfqp=028) MONOCYTES RELATIVE PERCENT (BEAKER) (test 1 % bktk=885) EOSINOPHILS RELATIVE PERCENT (BEAKER) (test 0 % shnw=126) BASOPHILS RELATIVE PERCENT (BEAKER) (test 0 % ofwj=224) NEUTROPHILS ABSOLUTE COUNT (BEAKER) (test 5.44 K/ L 1.78-5.38 xcav=374) LYMPHOCYTES ABSOLUTE COUNT (BEAKER) (test 1.06 K/ L 1.32-3.57 ljvm=492) MONOCYTES ABSOLUTE COUNT (BEAKER) (test 0.05 K/ L 0.30-0.82 gend=093) EOSINOPHILS ABSOLUTE COUNT (BEAKER) (test 0.00 K/ L 0.04-0.54 ydba=090) BASOPHILS ABSOLUTE COUNT (BEAKER) (test 0.00 K/ L 0.01-0.08 vqcw=562) IMMATURE GRANULOCYTES-RELATIVE PERCENT (BEAKER) 1 % 0-1 (test lqqp=6509) URIC [id number] 06:28:00 Test Item Value Reference Range Comments URIC ACID (BEAKER) (test verx=192) 1.7 mg/dL 2.6-7.2 [id number] 06:21:00 Test Item Value Reference Range Comments MAGNESIUM (BEAKER) (test assu=468) 2.0 mg/dL 1.6-2.6 [id number] 06:21:00 Test Item Value Reference Range Comments PHOSPHORUS (BEAKER) (test anbb=827) 2.6 mg/dL 2.3-4.7 BASIC METABOLIC [id number] 06:21:00 Test Item Value Reference Range Comments SODIUM (BEAKER) (test 140 meq/L 136-145 tirn=183) POTASSIUM (BEAKER) (test 3.5 meq/L 3.5-5.1 bxar=974) CHLORIDE (BEAKER) (test 108 meq/L 98-107 mooh=173) CO2 (BEAKER) (test 23 meq/L 22-29 gnqv=817) BLOOD UREA NITROGEN 11 mg/dL 7-21 (BEAKER) (test eyqk=197) CREATININE (BEAKER) (test 0.59 mg/dL 0.57-1.25 mrqk=214) GLUCOSE RANDOM (BEAKER) 136 mg/dL 70-105 (test vplt=884) CALCIUM (BEAKER) (test 8.6 mg/dL 8.4-10.2 kchc=115) EGFR (BEAKER) (test 141 mL/min/1.73 sq m ESTIMATED GFR IS NOT ydjs=9395) ACCURATE CREATININE CLEARANCE IN PREDICTING GLOMERULAR FILTRATION RATE. ESTIMATED GFR IS NOT APPLICABLE FOR DIALYSIS PATIENTS. HEPATIC FUNCTION [id number] 06:21:00 Test Item Value Reference Range Comments TOTAL PROTEIN (BEAKER) (test fkpe=866) 6.2 gm/dL 6.0-8.3 ALBUMIN (BEAKER) (test jqvg=0956) 2.7 g/dL 3.5-5.0 BILIRUBIN TOTAL (BEAKER) (test kcoq=351) 0.8 mg/dL 0.2-1.2 BILIRUBIN DIRECT (BEAKER) (test tetq=417) 0.5 mg/dL 0.1-0.5 ALKALINE PHOSPHATASE (BEAKER) (test kimv=959) 97 U/L 40-150 AST (SGOT) (BEAKER) (test zryx=500) 34 U/L 5-34 ALT (SGPT) (BEAKER) (test nvmc=914) 41 U/L 6-55 LACTATE DEHYDROGENASE (LDH)2018-07-12 06:21:00 Test Item Value Reference Range Comments LACTATE DEHYDROGENASE (BEAKER) (test tjvm=845) 188 U/L 125-220 CBC W/PLT COUNT & AUTO [id number] 05:48:00 Test Item Value Reference Range Comments WHITE BLOOD CELL COUNT (BEAKER) (test nrty=244) 8.7 K/ L 3.5-10.5 RED BLOOD CELL COUNT (BEAKER) (test zayf=577) 3.53 M/ L 4.63-6.08 HEMOGLOBIN (BEAKER) (test jhsi=879) 9.8 GM/DL 13.7-17.5 HEMATOCRIT (BEAKER) (test qxyq=883) 29.9 % 40.1-51.0 MEAN CORPUSCULAR VOLUME (BEAKER) (test qfpl=106) 84.7 fL 79.0-92.2 MEAN CORPUSCULAR HEMOGLOBIN (BEAKER) (test 27.8 pg 25.7-32.2 lsjk=630) MEAN CORPUSCULAR HEMOGLOBIN CONC (BEAKER) (test 32.8 GM/DL 32.3-36.5 gdpn=020) RED CELL DISTRIBUTION WIDTH (BEAKER) (test 13.6 % 11.6-14.4 mqvu=708) PLATELET COUNT (BEAKER) (test cahj=979) 442 K/CU MM 150-450 MEAN PLATELET VOLUME (BEAKER) (test dwsq=116) 9.2 fL 9.4-12.4 NUCLEATED RED BLOOD CELLS (BEAKER) (test 0 /100 WBC 0-0 ykvd=946) NEUTROPHILS RELATIVE PERCENT (BEAKER) (test 90 % kqjb=101) LYMPHOCYTES RELATIVE PERCENT (BEAKER) (test 8 % mtao=845) MONOCYTES RELATIVE PERCENT (BEAKER) (test 1 % xixt=278) EOSINOPHILS RELATIVE PERCENT (BEAKER) (test 0 % zybo=695) BASOPHILS RELATIVE PERCENT (BEAKER) (test 0 % ctzh=856) NEUTROPHILS ABSOLUTE COUNT (BEAKER) (test 7.82 K/ L 1.78-5.38 mlvf=655) LYMPHOCYTES ABSOLUTE COUNT (BEAKER) (test 0.72 K/ L 1.32-3.57 vsgq=944) MONOCYTES ABSOLUTE COUNT (BEAKER) (test 0.05 K/ L 0.30-0.82 oifz=000) EOSINOPHILS ABSOLUTE COUNT (BEAKER) (test 0.00 K/ L 0.04-0.54 eecv=116) BASOPHILS ABSOLUTE COUNT (BEAKER) (test 0.00 K/ L 0.01-0.08 gzfi=317) IMMATURE GRANULOCYTES-RELATIVE PERCENT (BEAKER) 1 % 0-1 (test cwas=0389) URIC [id number] 09:51:00 Test Item Value Reference Range Comments URIC ACID (BEAKER) (test czwz=071) 1.7 mg/dL 2.6-7.2 HEPATIC FUNCTION [id number] 09:11:00 Test Item Value Reference Range Comments TOTAL PROTEIN (BEAKER) (test gttp=409) 6.0 gm/dL 6.0-8.3 ALBUMIN (BEAKER) (test yhjc=6485) 2.6 g/dL 3.5-5.0 BILIRUBIN TOTAL (BEAKER) (test gttz=596) 0.7 mg/dL 0.2-1.2 BILIRUBIN DIRECT (BEAKER) (test fjnh=787) 0.4 mg/dL 0.1-0.5 ALKALINE PHOSPHATASE (BEAKER) (test jgyi=566) 98 U/L 40-150 AST (SGOT) (BEAKER) (test slya=487) 26 U/L 5-34 ALT (SGPT) (BEAKER) (test zcxh=293) 32 U/L 6-55 LACTATE DEHYDROGENASE (LDH)2018-07-11 09:11:00 Test Item Value Reference Range Comments LACTATE DEHYDROGENASE (BEAKER) (test xplu=317) 194 U/L 125-220 [id number] 09:10:00 Test Item Value Reference Range Comments MAGNESIUM (BEAKER) (test wrdj=061) 2.0 mg/dL 1.6-2.6 [id number] 09:10:00 Test Item Value Reference Range Comments PHOSPHORUS (BEAKER) (test ddbb=292) 2.6 mg/dL 2.3-4.7 BASIC METABOLIC [id number] 09:10:00 Test Item Value Reference Range Comments SODIUM (BEAKER) (test 140 meq/L 136-145 sfpw=844) POTASSIUM (BEAKER) (test 3.3 meq/L 3.5-5.1 tqcs=038) CHLORIDE (BEAKER) (test 109 meq/L 98-107 ochb=637) CO2 (BEAKER) (test 24 meq/L 22-29 ffkl=006) BLOOD UREA NITROGEN 9 mg/dL 7-21 (BEAKER) (test mzat=172) CREATININE (BEAKER) (test 0.56 mg/dL 0.57-1.25 srau=528) GLUCOSE RANDOM (BEAKER) 137 mg/dL 70-105 (test gyjb=642) CALCIUM (BEAKER) (test 8.2 mg/dL 8.4-10.2 gmyz=963) EGFR (BEAKER) (test 149 mL/min/1.73 sq m ESTIMATED GFR IS NOT fmmi=7547) ACCURATE CREATININE CLEARANCE IN PREDICTING GLOMERULAR FILTRATION RATE. ESTIMATED GFR IS NOT APPLICABLE FOR DIALYSIS PATIENTS. CBC W/PLT COUNT & AUTO [id number] 05:51:00 Test Item Value Reference Range Comments WHITE BLOOD CELL COUNT (BEAKER) (test xgdb=177) 13.6 K/ L 3.5-10.5 RED BLOOD CELL COUNT (BEAKER) (test mozq=916) 3.24 M/ L 4.63-6.08 HEMOGLOBIN (BEAKER) (test awzu=809) 9.2 GM/DL 13.7-17.5 HEMATOCRIT (BEAKER) (test usll=433) 27.7 % 40.1-51.0 MEAN CORPUSCULAR VOLUME (BEAKER) (test zyqh=609) 85.5 fL 79.0-92.2 MEAN CORPUSCULAR HEMOGLOBIN (BEAKER) (test 28.4 pg 25.7-32.2 ickl=216) MEAN CORPUSCULAR HEMOGLOBIN CONC (BEAKER) (test 33.2 GM/DL 32.3-36.5 rlms=655) RED CELL DISTRIBUTION WIDTH (BEAKER) (test 13.8 % 11.6-14.4 iqkj=363) PLATELET COUNT (BEAKER) (test jrkp=654) 404 K/CU MM 150-450 MEAN PLATELET VOLUME (BEAKER) (test ncrl=894) 9.1 fL 9.4-12.4 NUCLEATED RED BLOOD CELLS (BEAKER) (test 0 /100 WBC 0-0 tjko=254) NEUTROPHILS RELATIVE PERCENT (BEAKER) (test 91 % guyh=641) LYMPHOCYTES RELATIVE PERCENT (BEAKER) (test 8 % bupb=173) MONOCYTES RELATIVE PERCENT (BEAKER) (test 1 % vkbi=674) EOSINOPHILS RELATIVE PERCENT (BEAKER) (test 0 % iebq=783) BASOPHILS RELATIVE PERCENT (BEAKER) (test 0 % okgi=191) NEUTROPHILS ABSOLUTE COUNT (BEAKER) (test 12.27 K/ L 1.78-5.38 tzmg=201) LYMPHOCYTES ABSOLUTE COUNT (BEAKER) (test 1.07 K/ L 1.32-3.57 hwts=281) MONOCYTES ABSOLUTE COUNT (BEAKER) (test 0.09 K/ L 0.30-0.82 kevv=784) EOSINOPHILS ABSOLUTE COUNT (BEAKER) (test 0.00 K/ L 0.04-0.54 rdex=729) BASOPHILS ABSOLUTE COUNT (BEAKER) (test 0.01 K/ L 0.01-0.08 hcbl=942) IMMATURE GRANULOCYTES-RELATIVE PERCENT (BEAKER) 1 % 0-1 (test ajam=6900) [id number] 09:47:00 Test Item Value Reference Range Comments MAGNESIUM (BEAKER) (test 1.5 mg/dL 1.6-2.6 Specimen slightly hemolyzed oppn=255) [id number] 09:47:00 Test Item Value Reference Range Comments PHOSPHORUS (BEAKER) (test 2.5 mg/dL 2.3-4.7 Specimen slightly hemolyzed lfcf=819) BASIC METABOLIC [id number] 09:47:00 Test Item Value Reference Range Comments SODIUM (BEAKER) (test 143 meq/L 136-145 zstd=634) POTASSIUM (BEAKER) (test 3.5 meq/L 3.5-5.1 Specimen slightly jpan=969) hemolyzed CHLORIDE (BEAKER) (test 112 meq/L 98-107 kbaj=455) CO2 (BEAKER) (test 21 meq/L 22-29 joiw=741) BLOOD UREA NITROGEN 10 mg/dL 7-21 (BEAKER) (test ftum=420) CREATININE (BEAKER) (test 0.62 mg/dL 0.57-1.25 Specimen slightly zkrg=658) hemolyzed GLUCOSE RANDOM (BEAKER) 151 mg/dL 70-105 (test rsfq=741) CALCIUM (BEAKER) (test 8.5 mg/dL 8.4-10.2 savn=533) EGFR (BEAKER) (test 133 mL/min/1.73 sq m ESTIMATED GFR IS NOT aara=1972) ACCURATE CREATININE CLEARANCE IN PREDICTING GLOMERULAR FILTRATION RATE. ESTIMATED GFR IS NOT APPLICABLE FOR DIALYSIS PATIENTS. HEPATIC FUNCTION [id number] 09:47:00 Test Item Value Reference Range Comments TOTAL PROTEIN (BEAKER) (test 6.3 gm/dL 6.0-8.3 Specimen slightly hemolyzed lvrl=961) ALBUMIN (BEAKER) (test 2.6 g/dL 3.5-5.0 Specimen slightly hemolyzed vurn=5777) BILIRUBIN TOTAL (BEAKER) (test 0.5 mg/dL 0.2-1.2 Specimen slightly hemolyzed odgp=405) BILIRUBIN DIRECT (BEAKER) (test 0.4 mg/dL 0.1-0.5 Specimen slightly hemolyzed ejvh=339) ALKALINE PHOSPHATASE (BEAKER) 101 U/L 40-150 (test etrc=631) AST (SGOT) (BEAKER) (test 23 U/L 5-34 Specimen slightly hemolyzed xcmn=976) ALT (SGPT) (BEAKER) (test 28 U/L 6-55 Specimen slightly hemolyzed jmhi=717) URIC [id number] 09:47:00 Test Item Value Reference Range Comments URIC ACID (BEAKER) (test 1.8 mg/dL 2.6-7.2 Specimen slightly hemolyzed mego=776) LACTATE DEHYDROGENASE (LDH)2018-07-10 09:47:00 Test Item Value Reference Range Comments LACTATE DEHYDROGENASE (BEAKER) 254 U/L 125-220 Specimen slightly hemolyzed (test vxdu=876) CBC W/PLT COUNT & AUTO [id number] 07:37:00 Test Item Value Reference Range Comments WHITE BLOOD CELL COUNT (BEAKER) (test wiqn=817) 18.2 K/ L 3.5-10.5 RED BLOOD CELL COUNT (BEAKER) (test azuv=306) 3.45 M/ L 4.63-6.08 HEMOGLOBIN (BEAKER) (test uqra=972) 9.7 GM/DL 13.7-17.5 HEMATOCRIT (BEAKER) (test olws=558) 29.7 % 40.1-51.0 MEAN CORPUSCULAR VOLUME (BEAKER) (test wtky=381) 86.1 fL 79.0-92.2 MEAN CORPUSCULAR HEMOGLOBIN (BEAKER) (test 28.1 pg 25.7-32.2 qqtb=113) MEAN CORPUSCULAR HEMOGLOBIN CONC (BEAKER) (test 32.7 GM/DL 32.3-36.5 jvof=208) RED CELL DISTRIBUTION WIDTH (BEAKER) (test 13.8 % 11.6-14.4 buvr=361) PLATELET COUNT (BEAKER) (test gexy=130) 482 K/CU MM 150-450 MEAN PLATELET VOLUME (BEAKER) (test jptt=148) 9.3 fL 9.4-12.4 NUCLEATED RED BLOOD CELLS (BEAKER) (test 0 /100 WBC 0-0 wycn=109) NEUTROPHILS RELATIVE PERCENT (BEAKER) (test 89 % bzto=360) LYMPHOCYTES RELATIVE PERCENT (BEAKER) (test 8 % riia=343) MONOCYTES RELATIVE PERCENT (BEAKER) (test 2 % zrhv=907) EOSINOPHILS RELATIVE PERCENT (BEAKER) (test 0 % ylev=905) BASOPHILS RELATIVE PERCENT (BEAKER) (test 0 % fioh=006) NEUTROPHILS ABSOLUTE COUNT (BEAKER) (test 16.13 K/ L 1.78-5.38 dndu=883) LYMPHOCYTES ABSOLUTE COUNT (BEAKER) (test 1.50 K/ L 1.32-3.57 puex=128) MONOCYTES ABSOLUTE COUNT (BEAKER) (test 0.39 K/ L 0.30-0.82 awur=158) EOSINOPHILS ABSOLUTE COUNT (BEAKER) (test 0.00 K/ L 0.04-0.54 vbrv=980) BASOPHILS ABSOLUTE COUNT (BEAKER) (test 0.02 K/ L 0.01-0.08 bbvz=508) IMMATURE GRANULOCYTES-RELATIVE PERCENT (BEAKER) 1 % 0-1 (test ulfu=9716) URIC [id number] 05:37:00 Test Item Value Reference Range Comments URIC ACID (BEAKER) (test wqwj=735) 1.9 mg/dL 2.6-7.2 [id number] 05:26:00 Test Item Value Reference Range Comments MAGNESIUM (BEAKER) (test vzop=040) 1.6 mg/dL 1.6-2.6 [id number] 05:26:00 Test Item Value Reference Range Comments PHOSPHORUS (BEAKER) (test zvqi=071) 2.2 mg/dL 2.3-4.7 BASIC METABOLIC [id number] 05:26:00 Test Item Value Reference Range Comments SODIUM (BEAKER) (test 141 meq/L 136-145 hamt=104) POTASSIUM (BEAKER) (test 3.9 meq/L 3.5-5.1 xucg=861) CHLORIDE (BEAKER) (test 111 meq/L 98-107 lezc=409) CO2 (BEAKER) (test 22 meq/L 22-29 hdqj=853) BLOOD UREA NITROGEN 7 mg/dL 7-21 (BEAKER) (test gtyj=620) CREATININE (BEAKER) (test 0.65 mg/dL 0.57-1.25 sfjl=101) GLUCOSE RANDOM (BEAKER) 179 mg/dL 70-105 (test vqlo=684) CALCIUM (BEAKER) (test 8.7 mg/dL 8.4-10.2 rcav=969) EGFR (BEAKER) (test 126 mL/min/1.73 sq m ESTIMATED GFR IS NOT dqnw=1469) ACCURATE CREATININE CLEARANCE IN PREDICTING GLOMERULAR FILTRATION RATE. ESTIMATED GFR IS NOT APPLICABLE FOR DIALYSIS PATIENTS. HEPATIC FUNCTION [id number] 05:26:00 Test Item Value Reference Range Comments TOTAL PROTEIN (BEAKER) (test yyns=741) 6.5 gm/dL 6.0-8.3 ALBUMIN (BEAKER) (test xeas=2393) 2.7 g/dL 3.5-5.0 BILIRUBIN TOTAL (BEAKER) (test epgu=531) 0.7 mg/dL 0.2-1.2 BILIRUBIN DIRECT (BEAKER) (test ihdq=737) 0.5 mg/dL 0.1-0.5 ALKALINE PHOSPHATASE (BEAKER) (test ttwy=695) 110 U/L 40-150 AST (SGOT) (BEAKER) (test xdvn=463) 23 U/L 5-34 ALT (SGPT) (BEAKER) (test jsoq=642) 30 U/L 6-55 LACTATE DEHYDROGENASE (LDH)2018-07-09 05:26:00 Test Item Value Reference Range Comments LACTATE DEHYDROGENASE (BEAKER) (test zexc=423) 168 U/L 125-220 CBC W/PLT COUNT & AUTO [id number] 05:16:00 Test Item Value Reference Range Comments WHITE BLOOD CELL COUNT (BEAKER) (test lelk=644) 9.7 K/ L 3.5-10.5 RED BLOOD CELL COUNT (BEAKER) (test iyok=155) 3.53 M/ L 4.63-6.08 HEMOGLOBIN (BEAKER) (test xxqp=591) 9.9 GM/DL 13.7-17.5 HEMATOCRIT (BEAKER) (test hrks=584) 30.5 % 40.1-51.0 MEAN CORPUSCULAR VOLUME (BEAKER) (test kztv=020) 86.4 fL 79.0-92.2 MEAN CORPUSCULAR HEMOGLOBIN (BEAKER) (test 28.0 pg 25.7-32.2 fxix=534) MEAN CORPUSCULAR HEMOGLOBIN CONC (BEAKER) (test 32.5 GM/DL 32.3-36.5 ikku=574) RED CELL DISTRIBUTION WIDTH (BEAKER) (test 13.6 % 11.6-14.4 xvtm=312) PLATELET COUNT (BEAKER) (test pukb=098) 428 K/CU MM 150-450 MEAN PLATELET VOLUME (BEAKER) (test lvan=628) 8.7 fL 9.4-12.4 NUCLEATED RED BLOOD CELLS (BEAKER) (test 0 /100 WBC 0-0 mije=944) NEUTROPHILS RELATIVE PERCENT (BEAKER) (test 83 % elwj=544) LYMPHOCYTES RELATIVE PERCENT (BEAKER) (test 15 % hiaj=892) MONOCYTES RELATIVE PERCENT (BEAKER) (test 1 % blyf=413) EOSINOPHILS RELATIVE PERCENT (BEAKER) (test 0 % lrvn=766) BASOPHILS RELATIVE PERCENT (BEAKER) (test 0 % ywrv=769) NEUTROPHILS ABSOLUTE COUNT (BEAKER) (test 8.05 K/ L 1.78-5.38 dqqn=507) LYMPHOCYTES ABSOLUTE COUNT (BEAKER) (test 1.48 K/ L 1.32-3.57 movp=485) MONOCYTES ABSOLUTE COUNT (BEAKER) (test 0.08 K/ L 0.30-0.82 gdiz=562) EOSINOPHILS ABSOLUTE COUNT (BEAKER) (test 0.00 K/ L 0.04-0.54 uceh=025) BASOPHILS ABSOLUTE COUNT (BEAKER) (test 0.02 K/ L 0.01-0.08 sngl=923) IMMATURE GRANULOCYTES-RELATIVE PERCENT (BEAKER) 1 % 0-1 (test lqez=8184) FL, LUMBAR PUNCTURE, [id number] 15:29:00Reason for exam:->DLBCL, 12 mg MTX 50 hydrocortisoneFINAL REPORT Procedure: Fluoroscopy guided lumbar puncture for [...] the thecal sac without difficulty. There were noperiprocedural complications. Fluoroscopy time: 0.1 minutes. Images: 1. Impression: Successful fluoroscopy guided lumbar puncture for administration of intrathecal methotrexate and hydrocortisone. Signed: Casandra Arce MDReport Verified Date/Time: 07/08/2018 15:29:47 Reading Location: [facility] B1 C013V Neuro Reading Room ANG, TUNNEL CATH CENTRAL INS W/PORT [id number] 12:32:00pls keep it accessed; for chemotherapyReason for exam:-> chemotherapyFINAL REPORT Right internal jugular chest port insertion History: Lymphoma. Modality: Sonography and fluoroscopy. Sedation: Versed 1.0 mg and fentanyl 50 mcg given intravenously for conscious sedation. Vital signs were monitored throughout the procedure by a nurse, and remained stable. Physician intra-service time was 20 minutes. Boom Operator: Lc eMdeiros MD Textile Designer: None. Approach: Right internal jugular vein Estimated blood loss: < 5 cc. Specimen: None. Fluoroscopy Time: 0.0 min.Reference AirKerma (Ka, r): 0.1 mGy. Technique: Informed written [...] PACS. A 0.018 inch wire was placed throughthe needle into the right atrium. A 4 Mauritian micropuncture sheath was placed. A subcutaneous tunnel and pocket were created in the right anterior chest wall by blunt dissection. The pocket was flushedwith antibiotic solution. A 6F Bard port was [...] small jugular incision site was closed using Steri- Strips. The patient tolerated the procedure well and leftthe department in the same condition. Results: Spot radiograph of the chest demonstrates the new right IJ Port-A-Cath to lie in the expected position with its tip overlying the cavoatrial junction. Additionally, the patienthas a large right pleural effusion. Impression: Successful, uncomplicated placement of a right internal jugularchest port. The port is ready for immediate use. Incidental note of a large right pleural effusion. Signed: Lc Medeiros MDReport Verified Date/Time: 07/08/2018 12:32:07 Reading Location: [place] [address] Angio Body Reading Room URIC [id number] 07:01:00 Test Item Value Reference Range Comments URIC ACID (BEAKER) (test jolq=971) 2.6 mg/dL 2.6-7.2 [id number] 07:01:00 Test Item Value Reference Range Comments MAGNESIUM (BEAKER) (test deod=246) 1.6 mg/dL 1.6-2.6 [id number] 07:01:00 Test Item Value Reference Range Comments PHOSPHORUS (BEAKER) (test zumh=794) 3.2 mg/dL 2.3-4.7 BASIC METABOLIC [id number] 07:01:00 Test Item Value Reference Range Comments SODIUM (BEAKER) (test 139 meq/L 136-145 vgye=175) POTASSIUM (BEAKER) (test 3.8 meq/L 3.5-5.1 fwmu=853) CHLORIDE (BEAKER) (test 110 meq/L 98-107 eqgp=829) CO2 (BEAKER) (test 23 meq/L 22-29 nlaj=064) BLOOD UREA NITROGEN 9 mg/dL 7-21 (BEAKER) (test izgs=326) CREATININE (BEAKER) (test 0.63 mg/dL 0.57-1.25 ibgk=572) GLUCOSE RANDOM (BEAKER) 93 mg/dL 70-105 (test styo=303) CALCIUM (BEAKER) (test 8.4 mg/dL 8.4-10.2 oyfw=552) EGFR (BEAKER) (test 130 mL/min/1.73 sq m ESTIMATED GFR IS NOT ictc=4643) ACCURATE CREATININE CLEARANCE IN PREDICTING GLOMERULAR FILTRATION RATE. ESTIMATED GFR IS NOT APPLICABLE FOR DIALYSIS PATIENTS. HEPATIC FUNCTION [id number] 07:01:00 Test Item Value Reference Range Comments TOTAL PROTEIN (BEAKER) (test awlu=242) 6.3 gm/dL 6.0-8.3 ALBUMIN (BEAKER) (test gwwd=2336) 2.6 g/dL 3.5-5.0 BILIRUBIN TOTAL (BEAKER) (test nsjb=114) 0.6 mg/dL 0.2-1.2 BILIRUBIN DIRECT (BEAKER) (test iwyw=799) 0.5 mg/dL 0.1-0.5 ALKALINE PHOSPHATASE (BEAKER) (test kaha=968) 113 U/L 40-150 AST (SGOT) (BEAKER) (test zbpk=155) 32 U/L 5-34 ALT (SGPT) (BEAKER) (test zfmj=126) 34 U/L 6-55 LACTATE DEHYDROGENASE (LDH)2018-07-08 07:01:00 Test Item Value Reference Range Comments LACTATE DEHYDROGENASE (BEAKER) (test tjec=697) 204 U/L 125-220 CBC W/PLT COUNT & AUTO [id number] 06:56:00 Test Item Value Reference Range Comments WHITE BLOOD CELL COUNT (BEAKER) (test vqth=536) 9.7 K/ L 3.5-10.5 RED BLOOD CELL COUNT (BEAKER) (test tdfi=038) 3.59 M/ L 4.63-6.08 HEMOGLOBIN (BEAKER) (test qiav=072) 10.0 GM/DL 13.7-17.5 HEMATOCRIT (BEAKER) (test dpbe=090) 31.1 % 40.1-51.0 MEAN CORPUSCULAR VOLUME (BEAKER) (test eowf=117) 86.6 fL 79.0-92.2 MEAN CORPUSCULAR HEMOGLOBIN (BEAKER) (test 27.9 pg 25.7-32.2 juxn=049) MEAN CORPUSCULAR HEMOGLOBIN CONC (BEAKER) (test 32.2 GM/DL 32.3-36.5 grtr=337) RED CELL DISTRIBUTION WIDTH (BEAKER) (test 13.8 % 11.6-14.4 jafg=106) PLATELET COUNT (BEAKER) (test quqf=023) 504 K/CU MM 150-450 MEAN PLATELET VOLUME (BEAKER) (test xfpw=645) 8.7 fL 9.4-12.4 NUCLEATED RED BLOOD CELLS (BEAKER) (test 0 /100 WBC 0-0 xaot=713) NEUTROPHILS RELATIVE PERCENT (BEAKER) (test 58 % gtlx=471) LYMPHOCYTES RELATIVE PERCENT (BEAKER) (test 29 % wdws=732) MONOCYTES RELATIVE PERCENT (BEAKER) (test 9 % fjwg=949) EOSINOPHILS RELATIVE PERCENT (BEAKER) (test 2 % bqgx=651) BASOPHILS RELATIVE PERCENT (BEAKER) (test 1 % qrqr=851) NEUTROPHILS ABSOLUTE COUNT (BEAKER) (test 5.59 K/ L 1.78-5.38 wenj=858) LYMPHOCYTES ABSOLUTE COUNT (BEAKER) (test 2.80 K/ L 1.32-3.57 oefq=452) MONOCYTES ABSOLUTE COUNT (BEAKER) (test 0.88 K/ L 0.30-0.82 foui=531) EOSINOPHILS ABSOLUTE COUNT (BEAKER) (test 0.23 K/ L 0.04-0.54 xtrk=839) BASOPHILS ABSOLUTE COUNT (BEAKER) (test 0.09 K/ L 0.01-0.08 kzog=211) IMMATURE GRANULOCYTES-RELATIVE PERCENT (BEAKER) 1 % 0-1 (test izee=3423) RAD, CHEST, 2 [id number] 21:42:00Reason for exam:->h/o R pleural effusion s/p thoracentesis, concern for recurrent effusionFINAL REPORT Exam: Chest x-ray, PA and lateral views Clinical History: History of right pleural effusion status post thoracentesis. Concern for recurrent effusion. Comparison: Chest radiograph 07/01/2018. Technique: Frontal and lateral views of the chest were obtained. Findings/impression:There is a moderate loculated right pleural effusion, not significantly changed in size. There is associated compressive atelectasis. The left lung is grossly clear. There is no pneumothorax.The heart is normal in size. The aorta is uncoiled. There is a partially imaged catheter overlying theright upper quadrant. Signed: Juan Billings MDReport Verified Date/Time: 07/07/2018 21:42:29 Reading Location : [facility] B1 C013Y CT Body Reading Room LACTATE DEHYDROGENASE (LDH)2018-07-07 12:34:00 Test Item Value Reference Range Comments LACTATE DEHYDROGENASE (BEAKER) 493 U/L 125-220 Specimen slightly hemolyzed (test sint=710) URIC [id number] 12:33:00 Test Item Value Reference Range Comments URIC ACID (BEAKER) (test 3.2 mg/dL 2.6-7.2 Specimen markedly hemolyzed hdqs=791) COMPREHENSIVE METABOLIC [id number] 12:33:00 Test Item Value Reference Range Comments TOTAL PROTEIN (BEAKER) 7.5 gm/dL 6.0-8.3 Specimen markedly (test yfax=661) hemolyzed ALBUMIN (BEAKER) (test 2.7 g/dL 3.5-5.0 Specimen markedly nbcf=2876) hemolyzed ALKALINE PHOSPHATASE 121 U/L 40-150 (BEAKER) (test kjkd=459) BILIRUBIN TOTAL (BEAKER) 0.7 mg/dL 0.2-1.2 Specimen markedly (test xshh=226) hemolyzed SODIUM (BEAKER) (test 136 meq/L 136-145 ctky=911) POTASSIUM (BEAKER) (test 4.5 meq/L 3.5-5.1 Specimen markedly guam=051) hemolyzed CHLORIDE (BEAKER) (test 107 meq/L 98-107 akcn=695) CO2 (BEAKER) (test 21 meq/L 22-29 qkmt=571) BLOOD UREA NITROGEN 12 mg/dL 7-21 (BEAKER) (test gebl=690) CREATININE (BEAKER) (test 0.70 mg/dL 0.57-1.25 Specimen markedly pkpj=480) hemolyzed GLUCOSE RANDOM (BEAKER) 117 mg/dL 70-105 (test pnnj=091) CALCIUM (BEAKER) (test 8.9 mg/dL 8.4-10.2 kppu=548) AST (SGOT) (BEAKER) (test 53 U/L 5-34 Specimen markedly jphe=703) hemolyzed ALT (SGPT) (BEAKER) (test 43 U/L 6-55 Specimen markedly cjwo=136) hemolyzed EGFR (BEAKER) (test 115 mL/min/1.73 sq ESTIMATED GFR IS NOT jrdg=7976) m ACCURATE CREATININE CLEARANCE IN PREDICTING GLOMERULAR FILTRATION RATE. ESTIMATED GFR IS NOT APPLICABLE FOR DIALYSIS PATIENTS. CBC W/PLT COUNT & AUTO [id number] 12:19:00 Test Item Value Reference Range Comments WHITE BLOOD CELL COUNT (BEAKER) (test gjmv=961) 10.3 K/ L 3.5-10.5 RED BLOOD CELL COUNT (BEAKER) (test flvd=175) 3.89 M/ L 4.63-6.08 HEMOGLOBIN (BEAKER) (test uytc=383) 10.9 GM/DL 13.7-17.5 HEMATOCRIT (BEAKER) (test hwls=807) 34.8 % 40.1-51.0 MEAN CORPUSCULAR VOLUME (BEAKER) (test kiwd=617) 89.5 fL 79.0-92.2 MEAN CORPUSCULAR HEMOGLOBIN (BEAKER) (test 28.0 pg 25.7-32.2 okro=349) MEAN CORPUSCULAR HEMOGLOBIN CONC (BEAKER) (test 31.3 GM/DL 32.3-36.5 vxeo=350) RED CELL DISTRIBUTION WIDTH (BEAKER) (test 14.2 % 11.6-14.4 qgps=777) PLATELET COUNT (BEAKER) (test jrzq=822) 559 K/CU MM 150-450 MEAN PLATELET VOLUME (BEAKER) (test wedh=327) 8.7 fL 9.4-12.4 NUCLEATED RED BLOOD CELLS (BEAKER) (test 0 /100 WBC 0-0 icwe=440) NEUTROPHILS RELATIVE PERCENT (BEAKER) (test 62 % ytxf=237) LYMPHOCYTES RELATIVE PERCENT (BEAKER) (test 25 % eqai=764) MONOCYTES RELATIVE PERCENT (BEAKER) (test 9 % ckjy=480) EOSINOPHILS RELATIVE PERCENT (BEAKER) (test 2 % ajtk=670) BASOPHILS RELATIVE PERCENT (BEAKER) (test 1 % ohtn=630) NEUTROPHILS ABSOLUTE COUNT (BEAKER) (test 6.45 K/ L 1.78-5.38 rvja=346) LYMPHOCYTES ABSOLUTE COUNT (BEAKER) (test 2.54 K/ L 1.32-3.57 fmyr=970) MONOCYTES ABSOLUTE COUNT (BEAKER) (test 0.91 K/ L 0.30-0.82 blht=744) EOSINOPHILS ABSOLUTE COUNT (BEAKER) (test 0.20 K/ L 0.04-0.54 jvzb=474) BASOPHILS ABSOLUTE COUNT (BEAKER) (test 0.10 K/ L 0.01-0.08 eaee=138) IMMATURE GRANULOCYTES-RELATIVE PERCENT (BEAKER) 1 % 0-1 (test xkmy=9446) [id number] 12:09:00 Test Item Value Reference Range Comments PROTIME (BEAKER) (test qfhx=750) 14.5 seconds 11.7-14.7 INR (BEAKER) (test gqmr=978) 1.1 <=5.9 PARTIAL THROMBOPLASTIN TIME (BEAKER) (test 33.7 seconds 22.5-36.0 zhjd=063) RECOMMENDED COUMADIN/WARFARIN INR THERAPY RANGESSTANDARD DOSE: 2.0 - 3.0 Includes: PROPHYLAXIS forvenous thrombosis, systemic embolization; TREATMENT for venous thrombosis and/or pulmonary embolus.HIGH RISK: Target INR is 2.5-3.5 for patients with mechanical heart valves.RAD, CHEST, 1 VIEW, NON [id number] 19:41:00Reason for exam:->s/p thoracenthesisShould this be performed at the bedside?->YesFINAL REPORT Postthoracentesis chest dated 07/01/2018 Comment: Post thoracentesis chest demonstrates no pneumothorax.Heart is normal in size. Small to moderate residual pleural effusion is present. Impression: No pneumothorax on the post thoracentesis chest. Signed: Manny SmithMDReport Verified Date/Time: 07/01/2018 19:41:50 Reading Location: [address] Consult Reading Room U/S, [id number] 17:04: 00Laterality?->RightReason for Exam:->Please perform thoracentesis of right lungFINAL REPORT Exam: Ultrasound guided thoracentesis Clinical History: [...] Ultrasound guided right thoracentesis. Signed: Jaquelin Borja MDReport Verified Date/Time: 07/01/2018 17:04:04 Reading Location: [address] Ultrasound Reading Room [id number] 13:58:00 Test Item Value Reference Range Comments PARTIAL THROMBOPLASTIN TIME (BEAKER) (test 33.1 seconds 22.5-36.0 dthc=297) PROTHROMBIN TIME/[id number] 13:57:00 Test Item Value Reference Range Comments PROTIME (BEAKER) (test isqt=062) 15.2 seconds 11.7-14.7 INR (BEAKER) (test vfja=360) 1.2 <=5.9 RECOMMENDED COUMADIN/WARFARIN INR THERAPY RANGESSTANDARD DOSE: 2.0 - 3.0 Includes: PROPHYLAXIS forvenous thrombosis, systemic embolization; TREATMENT for venous thrombosis and/or pulmonary embolus.HIGH RISK: Target INR is 2.5-3.5 for patients with mechanical heart valves.RAD, CHEST, 2 [id number] 13:15: 00Pleural effusion DLBCLReason for Exam:->Diffuse large B-cell lymphoma of intra abdominal lymph nodesFINAL REPORT EXAMINATION: PA and lateral views of the chest. COMPARISON: June 09, 2018 CLINICAL HISTORY: DISCUSSION: Lines/tubes: None. Lungs: Right lung atelectasis.Underlying additional pathology may be obscured. Pleura: Increased large right effusion. Heart and mediastinum: The cardiomediastinal silhouette is normal. Bones and soft tissues: No acute bony abnormalities. IMPRESSION: Increased large right pleural effusion with adjacent atelectasis. Additional underlying pathology may be obscured. Signed: Casandra Chavez MDReport Verified Date/Time: 06/30/2018 13:15:05 Electronically signed by: Casandra Chavez on 01:15 PMCBC W/PLT COUNT & AUTO [id number] 11:15:00 Test Item Value Reference Range Comments WHITE BLOOD CELL COUNT (BEAKER) (test hcnj=652) 25.5 K/ L 3.5-10.5 RED BLOOD CELL COUNT (BEAKER) (test xyfu=995) 4.07 M/ L 4.63-6.08 HEMOGLOBIN (BEAKER) (test kjwy=429) 12.0 GM/DL 13.7-17.5 HEMATOCRIT (BEAKER) (test oqxh=575) 35.8 % 40.1-51.0 MEAN CORPUSCULAR VOLUME (BEAKER) (test vtni=343) 88.0 fL 79.0-92.2 MEAN CORPUSCULAR HEMOGLOBIN (BEAKER) (test 29.5 pg 25.7-32.2 ixzz=480) MEAN CORPUSCULAR HEMOGLOBIN CONC (BEAKER) (test 33.5 GM/DL 32.3-36.5 ddmb=977) RED CELL DISTRIBUTION WIDTH (BEAKER) (test 14.0 % 11.6-14.4 qgbz=524) PLATELET COUNT (BEAKER) (test fxov=172) 325 K/CU MM 150-450 MEAN PLATELET VOLUME (BEAKER) (test pnme=346) 9.3 fL 9.4-12.4 NUCLEATED RED BLOOD CELLS (BEAKER) (test 0 /100 WBC 0-0 wgxa=652) (CELLAVISION MANUAL DIFF)2018-06-17 11:15:00 Test Item Value Reference Range Comments NEUTROPHILS - REL (CELLAVISION)(BEAKER) (test 96 % ptsf=6204) LYMPHOCYTES - REL (CELLAVISION)(BEAKER) (test 3 % xgny=6900) EOSINOPHILS - REL (CELLAVISION)(BEAKER) (test 1 % ywnl=3721) NEUTROPHILS - ABS (CELLAVISION)(BEAKER) (test 24.48 K/ul 1.78-5.38 lbty=9811) LYMPHOCYTES - ABS (CELLAVISION)(BEAKER) (test 0.77 K/ul 1.32-3.57 ibre=0778) EOSINOPHILS - ABS (CELLAVISION)(BEAKER) (test 0.26 K/uL 0.04-0.54 dhhi=4805) TOTAL COUNTED (BEAKER) (test iggi=0926) 100 RBC MORPHOLOGY (BEAKER) (test nhtp=618) Normal WBC MORPHOLOGY (BEAKER) (test gltl=544) Normal LARGE PLT(BEAKER) (test xork=1227) Present ARTIFACT (CELLAVISION)(BEAKER) (test iasc=3811) Present PLATELET CONCENTRATION (CELLAVISION)(BEAKER) Adequate (test zrbw=6835) Received comment: User comments: Slide comments:CALCIUM, [id number] 11:07 :00 Test Item Value Reference Range Comments CALCIUM IONIZED (BEAKER) (test iekb=467) 1.01 mmol/L 1.12-1.27 PH, BLOOD (BEAKER) (test dtam=5861) 7.44 [id number] 07:51:00 Test Item Value Reference Range Comments PHOSPHORUS (BEAKER) (test heon=910) 1.5 mg/dL 2.3-4.7 BASIC METABOLIC [id number] 07:44:00 Test Item Value Reference Range Comments SODIUM (BEAKER) (test 138 meq/L 136-145 ndpd=971) POTASSIUM (BEAKER) (test 3.3 meq/L 3.5-5.1 lluf=811) CHLORIDE (BEAKER) (test 108 meq/L 98-107 szmy=360) CO2 (BEAKER) (test 23 meq/L 22-29 twfg=341) BLOOD UREA NITROGEN 13 mg/dL 7-21 (BEAKER) (test oqrt=669) CREATININE (BEAKER) (test 0.60 mg/dL 0.57-1.25 rise=251) GLUCOSE RANDOM (BEAKER) 100 mg/dL 70-105 (test ppab=098) CALCIUM (BEAKER) (test 7.9 mg/dL 8.4-10.2 amlq=864) EGFR (BEAKER) (test 138 mL/min/1.73 sq m ESTIMATED GFR IS NOT xhcg=3509) ACCURATE CREATININE CLEARANCE IN PREDICTING GLOMERULAR FILTRATION RATE. ESTIMATED GFR IS NOT APPLICABLE FOR DIALYSIS PATIENTS. [id number] 07:33:00 Test Item Value Reference Range Comments MAGNESIUM (BEAKER) (test yqia=162) 1.7 mg/dL 1.6-2.6 URIC [id number] 07:33:00 Test Item Value Reference Range Comments URIC ACID (BEAKER) (test kcge=841) 2.5 mg/dL 2.6-7.2 BASIC METABOLIC [id number] 19:38:00 Test Item Value Reference Range Comments SODIUM (BEAKER) (test 141 meq/L 136-145 lvtw=931) POTASSIUM (BEAKER) (test 2.8 meq/L 3.5-5.1 xpqy=863) CHLORIDE (BEAKER) (test 112 meq/L 98-107 ukeo=475) CO2 (BEAKER) (test 22 meq/L 22-29 fwmt=424) BLOOD UREA NITROGEN 15 mg/dL 7-21 (BEAKER) (test xedy=912) CREATININE (BEAKER) (test 0.57 mg/dL 0.57-1.25 pxfl=713) GLUCOSE RANDOM (BEAKER) 147 mg/dL 70-105 (test pvin=827) CALCIUM (BEAKER) (test 7.1 mg/dL 8.4-10.2 sibh=167) EGFR (BEAKER) (test 146 mL/min/1.73 sq m ESTIMATED GFR IS NOT irsp=0441) ACCURATE CREATININE CLEARANCE IN PREDICTING GLOMERULAR FILTRATION RATE. ESTIMATED GFR IS NOT APPLICABLE FOR DIALYSIS PATIENTS. ANG, CHOLANGIOGRAM, [id number] 18:03:00Reason for exam:->Flush PTCAFINAL REPORT History: Lymphoma, biliary obstruction, malfunctioning right internal/external biliary drainage catheter. PROCEDURE: Following informed written consent, the patient's existing right internal/ external biliary drainage catheter and surrounding skin site [...] the proximal small bowel. A new 8 Mauritian internal/ external biliary drainage catheter was placed over the [...] the common duct above the ampulla. Summary sideholeslie outside the liver within the peritoneal cavity. [...] IMPRESSION: 1. Successful uncomplicated replacement of the patient' s malpositioned right internal/external biliary drainage catheter as described in detail above. Total fluoroscopy time: 4.0 minutes. Estimated total patient dose reported as (Ka,r): 150 mGy Signed: Iban Javiereport Verified Date/ Time: 06/16/2018 18:03:48 Reading Location: [address] Body Reading Room FL, UGI, WITH SMALL [id number] 17:06:00Reason for exam:->SBO, nauseaFINAL REPORT INDICATION:Nausea and abdominal pain. Evaluate for small bowel obstruction. COMPARISON: Abdomen radiograph June 09, 2018 TECHNIQUE: Small bowel follow-through.Fluoroscopy time 0.4 minutes.Fluoroscopic images 11. FINDINGS:Family Services Worker radiograph demonstrates a internal/external biliary catheter and an internal biliary catheter. Residual contrast in the colon noted. The patient was administered thin barium by mouth. Serial radiographs were performed. At 20 minutes contrastwas in the stomach and duodenum. At 40 [...] distal small bowel and proximal right colon. IMPRESSION:No small bowel obstruction. Signed: Ortiz Mckenzie MDReport Verified Date/Time: 06/16/2018 17:06:13 Reading Location:[address] Consult Reading Room CBC W/PLT COUNT & AUTO [id number] 07:41:00 Test Item Value Reference Range Comments WHITE BLOOD CELL COUNT (BEAKER) (test tfeh=659) 58.7 K/ L 3.5-10.5 RED BLOOD CELL COUNT (BEAKER) (test hkhw=359) 4.53 M/ L 4.63-6.08 HEMOGLOBIN (BEAKER) (test phgm=188) 13.4 GM/DL 13.7-17.5 HEMATOCRIT (BEAKER) (test eipv=067) 40.0 % 40.1-51.0 MEAN CORPUSCULAR VOLUME (BEAKER) (test qics=087) 88.3 fL 79.0-92.2 MEAN CORPUSCULAR HEMOGLOBIN (BEAKER) (test 29.6 pg 25.7-32.2 abxd=766) MEAN CORPUSCULAR HEMOGLOBIN CONC (BEAKER) (test 33.5 GM/DL 32.3-36.5 ulki=704) RED CELL DISTRIBUTION WIDTH (BEAKER) (test 13.9 % 11.6-14.4 bzud=674) PLATELET COUNT (BEAKER) (test lesw=656) 530 K/CU MM 150-450 MEAN PLATELET VOLUME (BEAKER) (test hwov=116) 9.5 fL 9.4-12.4 NUCLEATED RED BLOOD CELLS (BEAKER) (test 0 /100 WBC 0-0 hrgb=619) (CELLAVISION MANUAL DIFF)2018-06-16 07:41:00 Test Item Value Reference Range Comments NEUTROPHILS - REL (CELLAVISION)(BEAKER) (test 93 % sike=1194) LYMPHOCYTES - REL (CELLAVISION)(BEAKER) (test 2 % lktd=5530) MONOCYTES - REL (CELLAVISION)(BEAKER) (test 1 % eooc=8300) BANDS - REL (CELLAVISION)(BEAKER) (test 4 % 0-10 qtfp=6182) NEUTROPHILS - ABS (CELLAVISION)(BEAKER) (test 54.59 K/ul 1.78-5.38 ehbj=0177) LYMPHOCYTES - ABS (CELLAVISION)(BEAKER) (test 1.17 K/ul 1.32-3.57 rwcq=4047) MONOCYTES - ABS (CELLAVISION)(BEAKER) (test 0.59 K/uL 0.30-0.82 cuqs=8154) BANDS - ABS (CELLAVISION)(BEAKER) (test 2.35 K/uL 0.00-0.80 ppxt=2974) TOTAL COUNTED (BEAKER) (test edsb=6356) 100 RBC MORPHOLOGY (BEAKER) (test wcmm=457) Normal WBC MORPHOLOGY (BEAKER) (test wpzx=518) Normal PLT MORPHOLOGY (BEAKER) (test liji=244) Normal ARTIFACT (CELLAVISION)(BEAKER) (test jazb=2302) Present PLATELET CONCENTRATION (CELLAVISION)(BEAKER) Increased (test zvqi=2296) Received comment: User comments: Slide comments:URIC [id number] 05:13:00 Test Item Value Reference Range Comments URIC ACID (BEAKER) (test gnwm=815) 2.1 mg/dL 2.6-7.2 [id number] 05:13:00 Test Item Value Reference Range Comments MAGNESIUM (BEAKER) (test coer=261) 1.9 mg/dL 1.6-2.6 [id number] 05:13:00 Test Item Value Reference Range Comments PHOSPHORUS (BEAKER) (test eejl=681) 2.3 mg/dL 2.3-4.7 COMPREHENSIVE METABOLIC [id number] 05:13:00 Test Item Value Reference Range Comments TOTAL PROTEIN (BEAKER) 5.0 gm/dL 6.0-8.3 (test oneh=482) ALBUMIN (BEAKER) (test 2.6 g/dL 3.5-5.0 itec=8839) ALKALINE PHOSPHATASE 189 U/L 40-150 (BEAKER) (test hwfs=755) BILIRUBIN TOTAL (BEAKER) 2.4 mg/dL 0.2-1.2 (test bdxp=009) SODIUM (BEAKER) (test 142 meq/L 136-145 swyy=546) POTASSIUM (BEAKER) (test 3.0 meq/L 3.5-5.1 zyxw=785) CHLORIDE (BEAKER) (test 109 meq/L 98-107 cbdj=299) CO2 (BEAKER) (test 23 meq/L 22-29 nais=691) BLOOD UREA NITROGEN 18 mg/dL 7-21 (BEAKER) (test djlj=544) CREATININE (BEAKER) (test 0.65 mg/dL 0.57-1.25 xkht=733) GLUCOSE RANDOM (BEAKER) 108 mg/dL 70-105 (test pnbu=417) CALCIUM (BEAKER) (test 8.0 mg/dL 8.4-10.2 cdbr=502) AST (SGOT) (BEAKER) (test 37 U/L 5-34 ztik=474) ALT (SGPT) (BEAKER) (test 73 U/L 6-55 rsym=746) EGFR (BEAKER) (test 126 mL/min/1.73 sq ESTIMATED GFR IS NOT ysse=7126) m ACCURATE CREATININE CLEARANCE IN PREDICTING GLOMERULAR FILTRATION RATE. ESTIMATED GFR IS NOT APPLICABLE FOR DIALYSIS PATIENTS. BILIRUBIN, [id number] 05:13:00 Test Item Value Reference Range Comments BILIRUBIN DIRECT (BEAKER) (test kpkb=211) 1.6 mg/dL 0.1-0.5 LACTATE DEHYDROGENASE (LDH)2018-06-16 05:13:00 Test Item Value Reference Range Comments LACTATE DEHYDROGENASE (BEAKER) (test ypxy=842) 318 U/L 125-220 CBC W/PLT COUNT & AUTO [id number] 07:50:00 Test Item Value Reference Range Comments WHITE BLOOD CELL COUNT (BEAKER) (test ljeq=795) 42.2 K/ L 3.5-10.5 RED BLOOD CELL COUNT (BEAKER) (test xsia=754) 4.51 M/ L 4.63-6.08 HEMOGLOBIN (BEAKER) (test xxex=682) 13.1 GM/DL 13.7-17.5 HEMATOCRIT (BEAKER) (test tucp=825) 39.1 % 40.1-51.0 MEAN CORPUSCULAR VOLUME (BEAKER) (test phuw=283) 86.7 fL 79.0-92.2 MEAN CORPUSCULAR HEMOGLOBIN (BEAKER) (test 29.0 pg 25.7-32.2 bztw=275) MEAN CORPUSCULAR HEMOGLOBIN CONC (BEAKER) (test 33.5 GM/DL 32.3-36.5 uhhn=958) RED CELL DISTRIBUTION WIDTH (BEAKER) (test 13.6 % 11.6-14.4 rpqr=095) PLATELET COUNT (BEAKER) (test kigh=615) 598 K/CU MM 150-450 MEAN PLATELET VOLUME (BEAKER) (test cibu=238) 9.4 fL 9.4-12.4 NUCLEATED RED BLOOD CELLS (BEAKER) (test 0 /100 WBC 0-0 msbo=446) (CELLAVISION MANUAL DIFF)2018-06-15 07:50:00 Test Item Value Reference Range Comments NEUTROPHILS - REL (CELLAVISION)(BEAKER) (test 94 % aiki=3373) LYMPHOCYTES - REL (CELLAVISION)(BEAKER) (test 1 % uzua=6948) MONOCYTES - REL (CELLAVISION)(BEAKER) (test 1 % cpoh=3213) BANDS - REL (CELLAVISION)(BEAKER) (test 4 % 0-10 rosb=5587) NEUTROPHILS - ABS (CELLAVISION)(BEAKER) (test 39.67 K/ul 1.78-5.38 diil=8340) LYMPHOCYTES - ABS (CELLAVISION)(BEAKER) (test 0.42 K/ul 1.32-3.57 tgzd=0037) MONOCYTES - ABS (CELLAVISION)(BEAKER) (test 0.42 K/uL 0.30-0.82 boie=4504) BANDS - ABS (CELLAVISION)(BEAKER) (test 1.69 K/uL 0.00-0.80 dxfs=5158) TOTAL COUNTED (BEAKER) (test rjtg=1100) 100 RBC MORPHOLOGY (BEAKER) (test yeoq=728) Normal GIANT PLATELETS (BEAKER) (test noqm=937) Present TOXIC GRANULATION (BEAKER) (test lapc=891) Present PLATELET CONCENTRATION (CELLAVISION)(BEAKER) Increased (test nuca=3752) Received comment: User comments: Slide comments:URIC [id number] 05:02:00 Test Item Value Reference Range Comments URIC ACID (BEAKER) (test szho=536) 1.6 mg/dL 2.6-7.2 Specimen slightly [id number] 04:59:00 Test Item Value Reference Range Comments PHOSPHORUS (BEAKER) (test oyeb=190) 3.4 mg/dL 2.3-4.7 COMPREHENSIVE METABOLIC [id number] 04:59:00 Test Item Value Reference Range Comments TOTAL PROTEIN (BEAKER) 5.8 gm/dL 6.0-8.3 (test buzi=324) ALBUMIN (BEAKER) (test 2.9 g/dL 3.5-5.0 wyld=1886) ALKALINE PHOSPHATASE 201 U/L 40-150 (BEAKER) (test vztu=348) BILIRUBIN TOTAL (BEAKER) 2.9 mg/dL 0.2-1.2 (test oyla=043) SODIUM (BEAKER) (test 138 meq/L 136-145 sunu=135) POTASSIUM (BEAKER) (test 3.4 meq/L 3.5-5.1 fyly=151) CHLORIDE (BEAKER) (test 104 meq/L 98-107 xnoa=575) CO2 (BEAKER) (test 24 meq/L 22-29 myhg=300) BLOOD UREA NITROGEN 16 mg/dL 7-21 (BEAKER) (test fxbf=825) CREATININE (BEAKER) (test 0.68 mg/dL 0.57-1.25 jrzy=837) GLUCOSE RANDOM (BEAKER) 137 mg/dL 70-105 (test tzrg=015) CALCIUM (BEAKER) (test 8.4 mg/dL 8.4-10.2 wmqh=702) AST (SGOT) (BEAKER) (test 46 U/L 5-34 szkw=464) ALT (SGPT) (BEAKER) (test 83 U/L 6-55 grpj=733) EGFR (BEAKER) (test 119 mL/min/1.73 sq ESTIMATED GFR IS NOT feah=7675) m ACCURATE CREATININE CLEARANCE IN PREDICTING GLOMERULAR FILTRATION RATE. ESTIMATED GFR IS NOT APPLICABLE FOR DIALYSIS PATIENTS. Specimen slightly ictericLACTATE DEHYDROGENASE (LDH)2018-06-15 04:59:00 Test Item Value Reference Range Comments LACTATE DEHYDROGENASE (BEAKER) (test lpeh=715) 284 U/L 125-220 [id number] 17:56:00Medical Cytology Report Case: [id number] Authorizing Provider: Ricarda Chance MD Collected: 06/11/2018 1401 Ordering Location: [address] Received: 06/14/2018 0918 SERVICE Pathologist: Britt Mckeon MD Specimen: CSF CEREBROSPINAL FLUID (CYTOSPINS): - NEGATIVE FOR EPITHELIAL MALIGNANCY Signing Pathologist Direct Phone Line: [phone] signed by Britt Mckeon MD on 06/14/2018 at 5:56 [id number]-otfi lymphoma CEREBROSPINAL FLUIDPrepared 2 cytospins from 6 ml colorless fluidCollected: [id number]: [id number] [facility], Department of Pathology, [address] [place] [address], Tel [facility], [facility], [address] [place] [address], OrjohjOr[facility], Department ofPathology, [address] [place] [address], Tel TISSUE [id number] 14:16:00Surgical Pathology Report Case: [id number] Authorizing Provider: Henry Reyes MD Collected: 06/03/2018 0825 Ordering Location: [address] Received: 2018 1435 Service Pathologist: Ana Fernandez MD Specimen: Pancreas, Cheryl Pancreatic Lymphnode As reported by [facility], cytogenetic FISH results are POSITIVE for a variant t(14;18)/IGH- BCL2 gene rearrangement and a 3'MYC gene deletion with gains of MYC, however a variant MYC rearrangement with an unknown partner cannot be excluded. 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 Cytogenetic FISH studies to evaluate for MYC, BCL2 , and/or BCL6 gene rearrangements have been requested for further characterization. These results will follow in an addendum. Dr. Ana Fernandez discussed the case with Dr. [place] Roman on 06/04/2018. [id number] ,[id number] , [id number] p6Zgrveqtvddw jaundice, lymphadenopathyPeripancreatic lymph node The specimen is received in a formalin-filled container labeled with the patient's information and labeled "peripancreatic lymph node" and consists of multiple small fragments of mcekon-red soft tissue all measuring less than 0.1 to 0.1 cm, submitted entirely in A1. CG/ew Sections show predominantly crushed lymphoid cells. In areas with better cellular preservation, the neoplastic cells [...] dendritic cell meshworks are identified with CD21. The interpretation of this case included the use of immunohistochemistry or special stains. Block A1: CD20, CD3, MYC, MUM1, BCL2, BCL6, Ki67, Cyclin D1, TdT, AO45Hbywdxhzsmhezecyjphf technical testing was performed at [facility]ology Laboratory where itwas developed and its performance characteristics were determined. It has not been cleared or approved by the U.S. Food and Drug Administration. The FDA has determined that such clearance or approval is not necessary. The test is used for clinical purposes. It should not be regarded as investigationalor for research. This laboratory is certified under the Clinical Laboratory Improvement Amendments of 1988 (CLIA-88) as qualified to perform high complexity clinical laboratory testing.FLOW CYTOMETRY [id number] 14:12:00 Test Item Value Reference Range Comments FLOW CYTOMETRY RESULT POINTER (SUKH) See Separate Report (test djpq=1506) FLOW CYTOMETRY AP CASE # (SUKH) (test [id number] bmch=5005) FLOW [id number] 12:56:00Flow Cytometry Report Case: [id number] Authorizing Provider: Iwona Morgan MD Collected: 06/11/2018 1401 Ordering Location: [address] Received: 2018 1536 SERVICE Pathologist: Rut Castro MD Specimen: Other CEREBROSPINAL FLUID, FLOW CYTOMETRY: -NO MONOTYPIC B CELL POPULATION-NO ABERRANT T CELL POPULATION- EVALUATION LIMITED BY PAUCICELLULARITY-SEE COMMENT 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 There is no definitive immunophenotypic evidence of involvement by non-Hodgkin lymphoma including the patient's previously diagnosed high-grade B-cell lymphoma; however, the evaluation is limited by paucicellularity and decreased viability (84.3%). Correlation with clinical, radiologic, and other laboratory findings is recommended for further evaluation. [id number]-vvfix B-cell lymphomaCerebrospinal fluidCD8, surface-kappa , CD56, surface-lambda, CD5, CD19, CD10, CD3, CD20, CD4, UD54Emtoizim Viability : 84.3% Number of Events Acquired: 79985 The following populations are identified: Lymphocytes: Bright [...] analyzed represent nonviable cells, non-hematolymphoid cells, and debris.These tests were developed and their performance characteristics determined by [facility]. They have not been cleared or approved by theU.S. Food and Drug Administration. The FDA has determined that such clearance or approval is not necessary. It should not be regarded as investigational or for research. This laboratory is certified under the Clinical Laboratory Improvement Amendments of 1988 ("CLIA") as qualified to perform high-complexity clinical testing.[facility], Department of Pathology, [address] [place] [id number], [facility], [facility], [address] [place] [address], [id number] -[id number] 06:16:00 Test Item Value Reference Range Comments PHOSPHORUS (BEAKER) (test ajdw=388) 3.9 mg/dL 2.3-4.7 URIC [id number] 06:16:00 Test Item Value Reference Range Comments URIC ACID (BEAKER) (test ijwp=180) 2.0 mg/dL 2.6-7.2 Specimen slightly ictericCOMPREHENSIVE METABOLIC [id number] 06:16:00 Test Item Value Reference Range Comments TOTAL PROTEIN (BEAKER) 6.0 gm/dL 6.0-8.3 (test inpq=986) ALBUMIN (BEAKER) (test 3.0 g/dL 3.5-5.0 esru=3725) ALKALINE PHOSPHATASE 199 U/L 40-150 (BEAKER) (test chuk=797) BILIRUBIN TOTAL (BEAKER) 2.6 mg/dL 0.2-1.2 (test qazs=126) SODIUM (BEAKER) (test 139 meq/L 136-145 mfnx=472) POTASSIUM (BEAKER) (test 3.5 meq/L 3.5-5.1 cfcm=629) CHLORIDE (BEAKER) (test 104 meq/L 98-107 ustl=506) CO2 (BEAKER) (test 25 meq/L 22-29 yghm=285) BLOOD UREA NITROGEN 17 mg/dL 7-21 (BEAKER) (test akas=826) CREATININE (BEAKER) (test 0.70 mg/dL 0.57-1.25 rgdw=034) GLUCOSE RANDOM (BEAKER) 132 mg/dL 70-105 (test iuxi=679) CALCIUM (BEAKER) (test 8.7 mg/dL 8.4-10.2 ygzp=762) AST (SGOT) (BEAKER) (test 53 U/L 5-34 capl=767) ALT (SGPT) (BEAKER) (test 78 U/L 6-55 bsrl=661) EGFR (BEAKER) (test 115 mL/min/1.73 sq ESTIMATED GFR IS NOT dere=7662) m ACCURATE CREATININE CLEARANCE IN PREDICTING GLOMERULAR FILTRATION RATE. ESTIMATED GFR IS NOT APPLICABLE FOR DIALYSIS PATIENTS. Specimen slightly ictericLACTATE DEHYDROGENASE (LDH)2018-06-14 06:16:00 Test Item Value Reference Range Comments LACTATE DEHYDROGENASE (BEAKER) (test pble=467) 272 U/L 125-220 CBC W/PLT COUNT & AUTO [id number] 05:44:00 Test Item Value Reference Range Comments WHITE BLOOD CELL COUNT (BEAKER) (test cwud=851) 9.0 K/ L 3.5-10.5 RED BLOOD CELL COUNT (BEAKER) (test afgg=677) 4.25 M/ L 4.63-6.08 HEMOGLOBIN (BEAKER) (test tdoe=929) 12.5 GM/DL 13.7-17.5 HEMATOCRIT (BEAKER) (test ohkg=998) 37.9 % 40.1-51.0 MEAN CORPUSCULAR VOLUME (BEAKER) (test agpb=142) 89.2 fL 79.0-92.2 MEAN CORPUSCULAR HEMOGLOBIN (BEAKER) (test 29.4 pg 25.7-32.2 jnou=766) MEAN CORPUSCULAR HEMOGLOBIN CONC (BEAKER) (test 33.0 GM/DL 32.3-36.5 yukl=485) RED CELL DISTRIBUTION WIDTH (BEAKER) (test 14.3 % 11.6-14.4 ynsr=872) PLATELET COUNT (BEAKER) (test uwvo=175) 567 K/CU MM 150-450 MEAN PLATELET VOLUME (BEAKER) (test fzdk=867) 9.8 fL 9.4-12.4 NUCLEATED RED BLOOD CELLS (BEAKER) (test 0 /100 WBC 0-0 gehe=485) NEUTROPHILS RELATIVE PERCENT (BEAKER) (test 90 % pjun=912) LYMPHOCYTES RELATIVE PERCENT (BEAKER) (test 6 % ewxu=343) MONOCYTES RELATIVE PERCENT (BEAKER) (test 2 % oxhc=389) EOSINOPHILS RELATIVE PERCENT (BEAKER) (test 0 % syez=532) BASOPHILS RELATIVE PERCENT (BEAKER) (test 0 % umhd=981) NEUTROPHILS ABSOLUTE COUNT (BEAKER) (test 8.11 K/ L 1.78-5.38 rkia=687) LYMPHOCYTES ABSOLUTE COUNT (BEAKER) (test 0.56 K/ L 1.32-3.57 nupt=447) MONOCYTES ABSOLUTE COUNT (BEAKER) (test 0.14 K/ L 0.30-0.82 uqzf=345) EOSINOPHILS ABSOLUTE COUNT (BEAKER) (test 0.00 K/ L 0.04-0.54 czwn=261) BASOPHILS ABSOLUTE COUNT (BEAKER) (test 0.02 K/ L 0.01-0.08 goui=862) IMMATURE GRANULOCYTES-RELATIVE PERCENT (BEAKER) 2 % 0-1 (test nomo=7168) URIC [id number] 06:46:00 Test Item Value Reference Range Comments URIC ACID (BEAKER) (test omts=772) 1.7 mg/dL 2.6-7.2 CBC W/PLT COUNT & AUTO [id number] 05:49:00 Test Item Value Reference Range Comments WHITE BLOOD CELL COUNT (BEAKER) (test wevk=929) 9.7 K/ L 3.5-10.5 RED BLOOD CELL COUNT (BEAKER) (test oewd=568) 3.86 M/ L 4.63-6.08 HEMOGLOBIN (BEAKER) (test nxfk=178) 11.3 GM/DL 13.7-17.5 HEMATOCRIT (BEAKER) (test ynts=941) 35.2 % 40.1-51.0 MEAN CORPUSCULAR VOLUME (BEAKER) (test mlxy=477) 91.2 fL 79.0-92.2 MEAN CORPUSCULAR HEMOGLOBIN (BEAKER) (test 29.3 pg 25.7-32.2 thqb=459) MEAN CORPUSCULAR HEMOGLOBIN CONC (BEAKER) (test 32.1 GM/DL 32.3-36.5 rkmu=798) RED CELL DISTRIBUTION WIDTH (BEAKER) (test 15.3 % 11.6-14.4 vxuo=549) PLATELET COUNT (BEAKER) (test ksre=348) 503 K/CU MM 150-450 MEAN PLATELET VOLUME (BEAKER) (test xepd=074) 9.9 fL 9.4-12.4 NUCLEATED RED BLOOD CELLS (BEAKER) (test 0 /100 WBC 0-0 igqo=610) NEUTROPHILS RELATIVE PERCENT (BEAKER) (test 89 % gwhi=203) LYMPHOCYTES RELATIVE PERCENT (BEAKER) (test 6 % kdid=617) MONOCYTES RELATIVE PERCENT (BEAKER) (test 4 % ujsz=015) EOSINOPHILS RELATIVE PERCENT (BEAKER) (test 0 % rnkt=625) BASOPHILS RELATIVE PERCENT (BEAKER) (test 0 % dnuk=242) NEUTROPHILS ABSOLUTE COUNT (BEAKER) (test 8.54 K/ L 1.78-5.38 czdr=118) LYMPHOCYTES ABSOLUTE COUNT (BEAKER) (test 0.60 K/ L 1.32-3.57 ykoo=118) MONOCYTES ABSOLUTE COUNT (BEAKER) (test 0.38 K/ L 0.30-0.82 rkqh=778) EOSINOPHILS ABSOLUTE COUNT (BEAKER) (test 0.00 K/ L 0.04-0.54 ttgk=547) BASOPHILS ABSOLUTE COUNT (BEAKER) (test 0.01 K/ L 0.01-0.08 prkp=039) IMMATURE GRANULOCYTES-RELATIVE PERCENT (BEAKER) 1 % 0-1 (test wajo=8707) [id number] 05:35:00 Test Item Value Reference Range Comments PHOSPHORUS (BEAKER) (test dvbn=120) 3.4 mg/dL 2.3-4.7 COMPREHENSIVE METABOLIC [id number] 05:35:00 Test Item Value Reference Range Comments TOTAL PROTEIN (BEAKER) 5.8 gm/dL 6.0-8.3 (test jtym=421) ALBUMIN (BEAKER) (test 2.8 g/dL 3.5-5.0 yaqs=3270) ALKALINE PHOSPHATASE 196 U/L 40-150 (BEAKER) (test sdoo=292) BILIRUBIN TOTAL (BEAKER) 2.3 mg/dL 0.2-1.2 (test xbog=506) SODIUM (BEAKER) (test 138 meq/L 136-145 rozp=532) POTASSIUM (BEAKER) (test 3.8 meq/L 3.5-5.1 ijqe=956) CHLORIDE (BEAKER) (test 106 meq/L 98-107 rrmf=713) CO2 (BEAKER) (test 23 meq/L 22-29 tysl=352) BLOOD UREA NITROGEN 19 mg/dL 7-21 (BEAKER) (test jchj=258) CREATININE (BEAKER) (test 0.68 mg/dL 0.57-1.25 yjyi=315) GLUCOSE RANDOM (BEAKER) 159 mg/dL 70-105 (test qwiv=249) CALCIUM (BEAKER) (test 8.3 mg/dL 8.4-10.2 dasx=365) AST (SGOT) (BEAKER) (test 46 U/L 5-34 vuhi=903) ALT (SGPT) (BEAKER) (test 64 U/L 6-55 ewdl=061) EGFR (BEAKER) (test 119 mL/min/1.73 sq ESTIMATED GFR IS NOT vblz=2701) m ACCURATE CREATININE CLEARANCE IN PREDICTING GLOMERULAR FILTRATION RATE. ESTIMATED GFR IS NOT APPLICABLE FOR DIALYSIS PATIENTS. LACTATE DEHYDROGENASE (LDH)2018-06-13 05:35:00 Test Item Value Reference Range Comments LACTATE DEHYDROGENASE (BEAKER) (test mozv=160) 249 U/L 125-220 BLOOD [id number] 11:01:00 Test Item Value Reference Range Comments CULTURE (BEAKER) (test qyjq=4678) No growth in 5 days BLOOD [id number] 11:01:00 Test Item Value Reference Range Comments CULTURE (BEAKER) (test umkg=9453) No growth in 5 days HEPATITIS B PCR, [id number] 07:08:00 Test Item Value Reference Range Comments HBV RESULT COMPONENT (BEAKER) HBV DNA not detected HBV DNA not detected (test oybe=6082) This test uses a Real-Time Polymerase Chain Reaction (RT-PCR) methodology and was performed using [employer] AmpliPrep/[employer] TaqMan HBV Test, v2.0 ([employer]Reportable range for this assay is 20 - 170,000,000 IU per mL (1.30 - 8.23 Log IU/mL).CBC W/PLT COUNT & AUTO [id number] 06:47:00 Test Item Value Reference Range Comments WHITE BLOOD CELL COUNT (BEAKER) (test nfak=948) 10.4 K/ L 3.5-10.5 RED BLOOD CELL COUNT (BEAKER) (test iwed=705) 3.64 M/ L 4.63-6.08 HEMOGLOBIN (BEAKER) (test jvjh=498) 10.5 GM/DL 13.7-17.5 HEMATOCRIT (BEAKER) (test jgsv=069) 33.8 % 40.1-51.0 MEAN CORPUSCULAR VOLUME (BEAKER) (test nyad=523) 92.9 fL 79.0-92.2 MEAN CORPUSCULAR HEMOGLOBIN (BEAKER) (test 28.8 pg 25.7-32.2 brri=479) MEAN CORPUSCULAR HEMOGLOBIN CONC (BEAKER) (test 31.1 GM/DL 32.3-36.5 weps=503) RED CELL DISTRIBUTION WIDTH (BEAKER) (test 15.6 % 11.6-14.4 qnel=185) PLATELET COUNT (BEAKER) (test ymkf=272) 482 K/CU MM 150-450 MEAN PLATELET VOLUME (BEAKER) (test vfbk=707) 9.7 fL 9.4-12.4 NUCLEATED RED BLOOD CELLS (BEAKER) (test 0 /100 WBC 0-0 joqo=530) NEUTROPHILS RELATIVE PERCENT (BEAKER) (test 88 % epvr=537) LYMPHOCYTES RELATIVE PERCENT (BEAKER) (test 6 % fdfv=644) MONOCYTES RELATIVE PERCENT (BEAKER) (test 4 % bisj=004) EOSINOPHILS RELATIVE PERCENT (BEAKER) (test 0 % blwc=333) BASOPHILS RELATIVE PERCENT (BEAKER) (test 0 % honc=795) NEUTROPHILS ABSOLUTE COUNT (BEAKER) (test 9.19 K/ L 1.78-5.38 kvgi=293) LYMPHOCYTES ABSOLUTE COUNT (BEAKER) (test 0.63 K/ L 1.32-3.57 wabq=968) MONOCYTES ABSOLUTE COUNT (BEAKER) (test 0.41 K/ L 0.30-0.82 sxvc=651) EOSINOPHILS ABSOLUTE COUNT (BEAKER) (test 0.00 K/ L 0.04-0.54 gpyx=644) BASOPHILS ABSOLUTE COUNT (BEAKER) (test 0.03 K/ L 0.01-0.08 pskd=561) IMMATURE GRANULOCYTES-RELATIVE PERCENT (BEAKER) 2 % 0-1 (test mppg=7802) [id number] 06:45:00 Test Item Value Reference Range Comments FERRITIN (BEAKER) (test runz=058) 712 ng/mL 5-275 TSH/FREE T4 IF [id number] 06:45:00 Test Item Value Reference Range Comments THYROID STIMULATING HORMONE (BEAKER) (test 0.79 uIU/mL 0.35-4.94 qugj=943) VITAMIN B12 AND [id number] 06:45:00 Test Item Value Reference Range Comments VITAMIN B12 (BEAKER) (test xnzh=860) 559 pg/mL 213-816 FOLATE (BEAKER) (test kvvn=994) 6.6 ng/mL >=7.0 URIC [id number] 06:29:00 Test Item Value Reference Range Comments URIC ACID (BEAKER) (test fzbt=050) 1.3 mg/dL 2.6-7.2 COMPREHENSIVE METABOLIC [id number] 06:29:00 Test Item Value Reference Range Comments TOTAL PROTEIN (BEAKER) 5.3 gm/dL 6.0-8.3 (test zbuo=014) ALBUMIN (BEAKER) (test 2.5 g/dL 3.5-5.0 wvui=6730) ALKALINE PHOSPHATASE 185 U/L 40-150 (BEAKER) (test dtiw=738) BILIRUBIN TOTAL (BEAKER) 2.1 mg/dL 0.2-1.2 (test dlmd=757) SODIUM (BEAKER) (test 141 meq/L 136-145 wajt=859) POTASSIUM (BEAKER) (test 3.5 meq/L 3.5-5.1 ogun=658) CHLORIDE (BEAKER) (test 113 meq/L 98-107 wkkh=368) CO2 (BEAKER) (test 20 meq/L 22-29 iujb=182) BLOOD UREA NITROGEN 18 mg/dL 7-21 (BEAKER) (test dudk=320) CREATININE (BEAKER) (test 0.65 mg/dL 0.57-1.25 sgtq=228) GLUCOSE RANDOM (BEAKER) 156 mg/dL 70-105 (test emse=545) CALCIUM (BEAKER) (test 7.6 mg/dL 8.4-10.2 yfae=712) AST (SGOT) (BEAKER) (test 38 U/L 5-34 ukio=746) ALT (SGPT) (BEAKER) (test 50 U/L 6-55 zhyy=827) EGFR (BEAKER) (test 126 mL/min/1.73 sq ESTIMATED GFR IS NOT goel=7565) m ACCURATE CREATININE CLEARANCE IN PREDICTING GLOMERULAR FILTRATION RATE. ESTIMATED GFR IS NOT APPLICABLE FOR DIALYSIS PATIENTS. [id number] 06:27:00 Test Item Value Reference Range Comments PHOSPHORUS (BEAKER) (test gxdz=609) 2.3 mg/dL 2.3-4.7 LACTATE DEHYDROGENASE (LDH)2018-06-12 06:27:00 Test Item Value Reference Range Comments LACTATE DEHYDROGENASE (BEAKER) (test xzed=493) 218 U/L 125-220 IRON, TIBC, % SAT. (WITHOUT FERRITIN)2018-06-12 06:09:00 Test Item Value Reference Range Comments IRON (BEAKER) (test sudl=973) 69.0 ug/dL 40.0-160.0 TOTAL IRON BINDING CAPACITY (BEAKER) (test 178 ug/dL 250-450 baqz=930) IRON % SATURATION (2) (BEAKER) (test sqjw=8398) 39 % 20-55 PROTEIN, [id number] 15:15:00 Test Item Value Reference Range Comments PROTEIN CSF (BEAKER) (test tsyc=169) 27 mg/dL 15-45 FL, LUMBAR PUNCTURE, [id number] 15:09:00CSF needs to be sent for cytology and FLOW (orders are in)Reason for exam:->Intrathecal methotrexate for high grade lymphoma; please obtain sample for flow cytometry, protein, and cytology studies with LPReason for exam:->hydrocortisone 50 mg, methotrexate (PF) 12 mg in sodium chloride 0.9% (NS)PF 3.52 mL intra-csf chemo injectionFINAL REPORT Procedure: Fluoroscopy guided lumbar puncture for intrathecal chemotherapy Radiologist: Casandra Arce M.D. CLINICAL HISTORY: Intrathecal methotrexate for high grade lymphoma; please obtain sample for flow cytometry, protein, and cytology studies with LP DESCRIPTION OF PROCEDURE: After obtaining informed consent, the patient was prepped and draped on the fluoroscopytable following the usual sterile fashion for lumbar puncture. 1% lidocaine was administered for local anesthesia. Using fluoroscopic guidance, a 22-gauge spinal needle advanced into the thecal sac at the L3-L4 level. Approximately 14 cc of clear CSF was removed and sent to the laboratory for the requested studies. Next, the labeled syringe of methotrexate 12 mg and hydrocortisone 50 mg was hand injected into the thecal sac without difficulty. There were no periprocedural complications. Fluoroscopytime: 0.1 minutes. Images : 1. Impression: Successful fluoroscopy guided lumbar puncture for administration of intrathecal methotrexate 12 mg and hydrocortisone 50 mg. Signed: Casandra Arce MDReport Verified Date/Time: 06/11/2018 15:09:17 Reading Location: [address] Neuro Reading Room PROTHROMBIN [id number] 11:02:00 Test Item Value Reference Range Comments PROTIME (BEAKER) (test hodw=370) 14.5 seconds 11.7-14.7 INR (BEAKER) (test kits=948) 1.1 <=5.9 RECOMMENDED COUMADIN/WARFARIN INR THERAPY RANGESSTANDARD DOSE: 2.0 - 3.0 Includes: PROPHYLAXIS forvenous thrombosis, systemic embolization; TREATMENT for venous thrombosis and/or pulmonary embolus.HIGH RISK: Target INR is 2.5-3.5 for patients with mechanical heart valves.CBC W/PLT COUNT & AUTO [id number] 08:50:00 Test Item Value Reference Range Comments WHITE BLOOD CELL COUNT (BEAKER) (test nsrc=400) 9.0 K/ L 3.5-10.5 RED BLOOD CELL COUNT (BEAKER) (test npga=604) 3.74 M/ L 4.63-6.08 HEMOGLOBIN (BEAKER) (test pomb=945) 10.9 GM/DL 13.7-17.5 HEMATOCRIT (BEAKER) (test zyni=552) 34.1 % 40.1-51.0 MEAN CORPUSCULAR VOLUME (BEAKER) (test lrbz=205) 91.2 fL 79.0-92.2 MEAN CORPUSCULAR HEMOGLOBIN (BEAKER) (test 29.1 pg 25.7-32.2 hska=296) MEAN CORPUSCULAR HEMOGLOBIN CONC (BEAKER) (test 32.0 GM/DL 32.3-36.5 uxaz=573) RED CELL DISTRIBUTION WIDTH (BEAKER) (test 15.5 % 11.6-14.4 ufnd=602) PLATELET COUNT (BEAKER) (test kyqu=521) 422 K/CU MM 150-450 MEAN PLATELET VOLUME (BEAKER) (test dnwo=511) 9.6 fL 9.4-12.4 NUCLEATED RED BLOOD CELLS (BEAKER) (test 0 /100 WBC 0-0 lwfe=963) (CELLAVISION MANUAL DIFF)2018-06-11 08:50:00 Test Item Value Reference Range Comments NEUTROPHILS - REL (CELLAVISION)(BEAKER) (test 90 % peuj=9189) LYMPHOCYTES - REL (CELLAVISION)(BEAKER) (test 5 % uqlm=8608) MONOCYTES - REL (CELLAVISION)(BEAKER) (test 5 % rtli=1743) NEUTROPHILS - ABS (CELLAVISION)(BEAKER) (test 8.10 K/ul 1.78-5.38 qorh=7324) LYMPHOCYTES - ABS (CELLAVISION)(BEAKER) (test 0.45 K/ul 1.32-3.57 lnfg=3355) MONOCYTES - ABS (CELLAVISION)(BEAKER) (test 0.45 K/uL 0.30-0.82 upmi=2755) TOTAL COUNTED (BEAKER) (test ugxz=5754) 100 RBC MORPHOLOGY (BEAKER) (test gqdc=291) Normal WBC MORPHOLOGY (BEAKER) (test ppmb=108) Normal GIANT PLATELETS (BEAKER) (test kaph=998) Present ARTIFACT (CELLAVISION)(BEAKER) (test ginq=5073) Present PLATELET CONCENTRATION (CELLAVISION)(BEAKER) (test Adequate wmjn=4784) Received comment: User comments: Slide comments:URIC [id number] 05:45:00 Test Item Value Reference Range Comments URIC ACID (BEAKER) (test dwwh=445) 1.5 mg/dL 2.6-7.2 [id number] 05:38:00 Test Item Value Reference Range Comments PHOSPHORUS (BEAKER) (test runh=664) 2.4 mg/dL 2.3-4.7 COMPREHENSIVE METABOLIC [id number] 05:38:00 Test Item Value Reference Range Comments TOTAL PROTEIN (BEAKER) 5.8 gm/dL 6.0-8.3 (test bojb=250) ALBUMIN (BEAKER) (test 2.6 g/dL 3.5-5.0 dzmf=1560) ALKALINE PHOSPHATASE 206 U/L 40-150 (BEAKER) (test ualb=866) BILIRUBIN TOTAL (BEAKER) 2.4 mg/dL 0.2-1.2 (test xois=938) SODIUM (BEAKER) (test 141 meq/L 136-145 egdu=752) POTASSIUM (BEAKER) (test 3.9 meq/L 3.5-5.1 oolr=593) CHLORIDE (BEAKER) (test 109 meq/L 98-107 nzqh=173) CO2 (BEAKER) (test 23 meq/L 22-29 hjkp=364) BLOOD UREA NITROGEN 16 mg/dL 7-21 (BEAKER) (test iaei=761) CREATININE (BEAKER) (test 0.69 mg/dL 0.57-1.25 ycwr=727) GLUCOSE RANDOM (BEAKER) 186 mg/dL 70-105 (test lqrw=549) CALCIUM (BEAKER) (test 8.4 mg/dL 8.4-10.2 tkur=800) AST (SGOT) (BEAKER) (test 29 U/L 5-34 bdps=630) ALT (SGPT) (BEAKER) (test 50 U/L 6-55 xdwq=763) EGFR (BEAKER) (test 117 mL/min/1.73 sq ESTIMATED GFR IS NOT ikyj=7990) m ACCURATE CREATININE CLEARANCE IN PREDICTING GLOMERULAR FILTRATION RATE. ESTIMATED GFR IS NOT APPLICABLE FOR DIALYSIS PATIENTS. LACTATE DEHYDROGENASE (LDH)2018-06-11 05:38:00 Test Item Value Reference Range Comments LACTATE DEHYDROGENASE (BEAKER) (test klmr=693) 251 U/L 125-220 [id number] 07:21:00 Test Item Value Reference Range Comments PHOSPHORUS (BEAKER) (test ckpd=161) 2.5 mg/dL 2.3-4.7 URIC [id number] 07:21:00 Test Item Value Reference Range Comments URIC ACID (BEAKER) (test ieok=833) 3.6 mg/dL 2.6-7.2 Specimen slightly ictericCOMPREHENSIVE METABOLIC [id number] 07:21:00 Test Item Value Reference Range Comments TOTAL PROTEIN (BEAKER) 5.7 gm/dL 6.0-8.3 (test deez=903) ALBUMIN (BEAKER) (test 2.6 g/dL 3.5-5.0 fmef=0972) ALKALINE PHOSPHATASE 230 U/L 40-150 (BEAKER) (test svuw=015) BILIRUBIN TOTAL (BEAKER) 3.1 mg/dL 0.2-1.2 (test ncmh=757) SODIUM (BEAKER) (test 140 meq/L 136-145 ooej=038) POTASSIUM (BEAKER) (test 3.5 meq/L 3.5-5.1 qoak=197) CHLORIDE (BEAKER) (test 107 meq/L 98-107 vcju=262) CO2 (BEAKER) (test 24 meq/L 22-29 lrnd=546) BLOOD UREA NITROGEN 16 mg/dL 7-21 (BEAKER) (test cnco=259) CREATININE (BEAKER) (test 0.76 mg/dL 0.57-1.25 rqxc=867) GLUCOSE RANDOM (BEAKER) 86 mg/dL 70-105 (test wltt=898) CALCIUM (BEAKER) (test 8.0 mg/dL 8.4-10.2 vtgx=893) AST (SGOT) (BEAKER) (test 33 U/L 5-34 szrb=106) ALT (SGPT) (BEAKER) (test 57 U/L 6-55 ftwv=871) EGFR (BEAKER) (test 105 mL/min/1.73 sq ESTIMATED GFR IS NOT rjxi=4430) m ACCURATE CREATININE CLEARANCE IN PREDICTING GLOMERULAR FILTRATION RATE. ESTIMATED GFR IS NOT APPLICABLE FOR DIALYSIS PATIENTS. Specimen slightly ictericLACTATE DEHYDROGENASE (LDH)2018-06-10 07:21:00 Test Item Value Reference Range Comments LACTATE DEHYDROGENASE (BEAKER) (test qpiy=940) 250 U/L 125-220 CBC W/PLT COUNT & AUTO [id number] 06:43:00 Test Item Value Reference Range Comments WHITE BLOOD CELL COUNT (BEAKER) (test pzva=979) 9.7 K/ L 3.5-10.5 RED BLOOD CELL COUNT (BEAKER) (test vcoe=333) 3.60 M/ L 4.63-6.08 HEMOGLOBIN (BEAKER) (test atlu=361) 10.4 GM/DL 13.7-17.5 HEMATOCRIT (BEAKER) (test uoif=497) 32.9 % 40.1-51.0 MEAN CORPUSCULAR VOLUME (BEAKER) (test orhw=973) 91.4 fL 79.0-92.2 MEAN CORPUSCULAR HEMOGLOBIN (BEAKER) (test 28.9 pg 25.7-32.2 dzxv=713) MEAN CORPUSCULAR HEMOGLOBIN CONC (BEAKER) (test 31.6 GM/DL 32.3-36.5 lbct=480) RED CELL DISTRIBUTION WIDTH (BEAKER) (test 15.8 % 11.6-14.4 tsmc=064) PLATELET COUNT (BEAKER) (test lalq=489) 406 K/CU MM 150-450 MEAN PLATELET VOLUME (BEAKER) (test ihtg=165) 9.3 fL 9.4-12.4 NUCLEATED RED BLOOD CELLS (BEAKER) (test 0 /100 WBC 0-0 isig=369) NEUTROPHILS RELATIVE PERCENT (BEAKER) (test 73 % xatb=025) LYMPHOCYTES RELATIVE PERCENT (BEAKER) (test 12 % wwiw=094) MONOCYTES RELATIVE PERCENT (BEAKER) (test 11 % tquu=860) EOSINOPHILS RELATIVE PERCENT (BEAKER) (test 2 % fjve=163) BASOPHILS RELATIVE PERCENT (BEAKER) (test 0 % ufbc=894) NEUTROPHILS ABSOLUTE COUNT (BEAKER) (test 7.10 K/ L 1.78-5.38 rafo=884) LYMPHOCYTES ABSOLUTE COUNT (BEAKER) (test 1.20 K/ L 1.32-3.57 iabv=969) MONOCYTES ABSOLUTE COUNT (BEAKER) (test 1.09 K/ L 0.30-0.82 cjic=131) EOSINOPHILS ABSOLUTE COUNT (BEAKER) (test 0.16 K/ L 0.04-0.54 zpsr=883) BASOPHILS ABSOLUTE COUNT (BEAKER) (test 0.03 K/ L 0.01-0.08 abcn=240) IMMATURE GRANULOCYTES-RELATIVE PERCENT (BEAKER) 2 % 0-1 (test xfdq=0750) CBC W/PLT COUNT & AUTO [id number] 06:42:00 Test Item Value Reference Range Comments WHITE BLOOD CELL COUNT (BEAKER) (test elzv=969) 9.7 K/ L 3.5-10.5 RED BLOOD CELL COUNT (BEAKER) (test oqfu=836) 3.64 M/ L 4.63-6.08 HEMOGLOBIN (BEAKER) (test lktq=921) 10.8 GM/DL 13.7-17.5 HEMATOCRIT (BEAKER) (test kdub=039) 33.3 % 40.1-51.0 MEAN CORPUSCULAR VOLUME (BEAKER) (test vesa=578) 91.5 fL 79.0-92.2 MEAN CORPUSCULAR HEMOGLOBIN (BEAKER) (test 29.7 pg 25.7-32.2 rlhb=999) MEAN CORPUSCULAR HEMOGLOBIN CONC (BEAKER) (test 32.4 GM/DL 32.3-36.5 hcwz=693) RED CELL DISTRIBUTION WIDTH (BEAKER) (test 15.8 % 11.6-14.4 lnlc=740) PLATELET COUNT (BEAKER) (test lylz=942) 422 K/CU MM 150-450 MEAN PLATELET VOLUME (BEAKER) (test ekss=307) 9.5 fL 9.4-12.4 NUCLEATED RED BLOOD CELLS (BEAKER) (test 0 /100 WBC 0-0 eoxj=730) NEUTROPHILS RELATIVE PERCENT (BEAKER) (test 73 % jroq=037) LYMPHOCYTES RELATIVE PERCENT (BEAKER) (test 13 % gwff=655) MONOCYTES RELATIVE PERCENT (BEAKER) (test 11 % hpan=143) EOSINOPHILS RELATIVE PERCENT (BEAKER) (test 2 % eicr=523) BASOPHILS RELATIVE PERCENT (BEAKER) (test 0 % iran=200) NEUTROPHILS ABSOLUTE COUNT (BEAKER) (test 7.06 K/ L 1.78-5.38 gfod=238) LYMPHOCYTES ABSOLUTE COUNT (BEAKER) (test 1.22 K/ L 1.32-3.57 yuih=875) MONOCYTES ABSOLUTE COUNT (BEAKER) (test 1.07 K/ L 0.30-0.82 name=906) EOSINOPHILS ABSOLUTE COUNT (BEAKER) (test 0.16 K/ L 0.04-0.54 ptws=208) BASOPHILS ABSOLUTE COUNT (BEAKER) (test 0.03 K/ L 0.01-0.08 thuv=107) IMMATURE GRANULOCYTES-RELATIVE PERCENT (BEAKER) 1 % 0-1 (test jmrh=4767) [id number] 20:48:00 Test Item Value Reference Range Comments MAGNESIUM (BEAKER) (test brpz=394) 2.1 mg/dL 1.6-2.6 [id number] 20:47:00 Test Item Value Reference Range Comments MAGNESIUM (BEAKER) (test icsf=641) 2.1 mg/dL 1.6-2.6 RAD, ABDOMEN/KUB, 1 VIEW [id number] 17:31:00Reason for exam:->pls confirm corepak position, if not post pyloric pls advice on how far to advance tubeReason for exam:->call bedside nurse prior to comingShould this be performed at the bedside?->YesFINAL REPORT ONE VIEW ABDOMEN HISTORY: Status post [...] bowel loops are identified. Signed: Reyna Mejia MDReport Verified Date/Time: 06/09/2018 17:31: 04 Reading Location: [address] Consult Reading Room RAD, CHEST, 1 VIEW, NON [id number] 14:03:00Reason for exam:->post picc line insertionShould this be performed at the bedside?->YesFINAL REPORT Portable chest. MEDICAL HISTORY: Post PICC line insertion. COMPARISON STUDY: None available. FINDINGS: The cardiac silhouette is enlarged. There is elevation of the right hemidiaphragm with bibasilar atelectasis or consolidation. A feeding tube is noted. A right PICC line is in place, the tip projecting over the SVC. Degenerative changes are seen. IMPRESSION: RightPICC line insertion, the tip projecting over the SVC. Signed: Mauri De Santiago MDReport Verified Date/Time: 06/09/2018 14:03:51 Reading Location: [id number] Consult Reading Room RAD, ABDOMEN/KUB, 1 VIEW [id number] 11:59:00Reason for exam:->corepak placement, is it post pyloric? please call nurse before coming to bedside to confirm tube has been advanced. if not post pyloric, please advise on amount tube needs to beadvanced in your read.Should this be performed at the bedside?->YesFINAL REPORT Abdomen. Clinical History: corepak placement, is it post pyloric? please call nurse before coming to bedside to confirm tube has been advanced. if not post pyloric , please advise on amount tube needs to be advanced in your read. Comparison Study: June 08, 2018 Findings: A single supine view of the abdomen demonstrates a feeding tube in place, the tip at the gastroesophageal junction. It could be advanced several centimeters to obtain a postpyloric position. The stomach is gas-filled. No dilated bowel loops are seen. This film is insensitive for the detection offree air. Signed: Mauri De Santiago MDReport Verified Date/Time: 09/2018 11:59:44 Reading Location: [facility] Radiology Reading Room LACTATE DEHYDROGENASE (LDH)2018-06-09 11:43:00 Test Item Value Reference Range Comments LACTATE DEHYDROGENASE (BEAKER) (test jixw=581) 379 U/L 125-220 [id number] 11:43:00 Test Item Value Reference Range Comments PHOSPHORUS (BEAKER) (test ryfk=238) 3.1 mg/dL 2.3-4.7 URIC [id number] 11:43:00 Test Item Value Reference Range Comments URIC ACID (BEAKER) (test cvnq=716) 7.6 mg/dL 2.6-7.2 Specimen slightly ictericFINE NEEDLE ASPIRATION BY [id number] 11:20: 00Medical Cytology Report Case: [id number] Authorizing Provider: Henry Reyes MD Collected : 06/03/2018 0819 Ordering Location: [address] Received: 06/03/2018 1057 Service Pathologist: Britt Mckeon MD Specimen: Pancreatic, Cheryl pancreatic lymph node This addendum is issued to update the diagnosis based on the flow report on [id number] and the surgical correlate [id number]:PERIPANCREATIC LYMPH NODE FNA BY CLINICIAN (CYTOSPINS AND CELL BLOCK OF ASPIRATE):- HIGH GRADE B-CELL LYMPHOMA; 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 FOR EPITHELIAL MALIGNANCY Addendum electronicallysigned by Britt Mckeon MD on 06/09/2018 at 11:20 AMPERIPANCREATIC LYMPH NODE FNA BY CLINICIAN (CYTOSPINS AND CELL BLOCK OF ASPIRATE): - NEGATIVE FOR EPITHELIAL MALIGNANCY (SEE COMMENT) Signing Pathologist Direct Phone Line: [phone] signed by Britt Mckeon MD on 06/03/2018 at 7:08 PMPlease refer to to cases [id number] and [id number] for additional information.[id number], [id number]WIMOC LYMPH NODE FNA15 mls in cytorich red; 4 cytospins, cell blockCollected: [id number]: [id number] [facility], Department of Pathology, [address] [place] [id number], [facility]fpzny[facility], [facility] of [facility], [address] [place] [address], [facility]chOr[facility], Department of Pathology, [address] [place] [address], [id number] B SURFACE [id number] 10:08:00 Test Item Value Reference Range Comments HEPATITIS B SURFACE ANTIGEN (2) (BEAKER) (test Nonreactive Nonreactive ggtg=9061) [id number] 05:22:00 Test Item Value Reference Range Comments MAGNESIUM (BEAKER) (test bswo=253) 2.3 mg/dL 1.6-2.6 COMPREHENSIVE METABOLIC [id number] 05:22:00 Test Item Value Reference Range Comments TOTAL PROTEIN (BEAKER) 6.6 gm/dL 6.0-8.3 (test dlxf=649) ALBUMIN (BEAKER) (test 3.1 g/dL 3.5-5.0 aycc=6774) ALKALINE PHOSPHATASE 321 U/L 40-150 (BEAKER) (test zfoq=022) BILIRUBIN TOTAL (BEAKER) 4.0 mg/dL 0.2-1.2 (test dphk=576) SODIUM (BEAKER) (test 140 meq/L 136-145 sxad=366) POTASSIUM (BEAKER) (test 3.8 meq/L 3.5-5.1 euyx=883) CHLORIDE (BEAKER) (test 103 meq/L 98-107 lits=227) CO2 (BEAKER) (test 24 meq/L 22-29 pneb=839) BLOOD UREA NITROGEN 18 mg/dL 7-21 (BEAKER) (test meep=079) CREATININE (BEAKER) (test 0.95 mg/dL 0.57-1.25 azmw=206) GLUCOSE RANDOM (BEAKER) 111 mg/dL 70-105 (test fgws=502) CALCIUM (BEAKER) (test 9.1 mg/dL 8.4-10.2 ebtk=734) AST (SGOT) (BEAKER) (test 56 U/L 5-34 dakl=599) ALT (SGPT) (BEAKER) (test 101 U/L 6-55 fbty=830) EGFR (BEAKER) (test 81 mL/min/1.73 sq m ESTIMATED GFR IS NOT xqfs=0650) ACCURATE CREATININE CLEARANCE IN PREDICTING GLOMERULAR FILTRATION RATE. ESTIMATED GFR IS NOT APPLICABLE FOR DIALYSIS PATIENTS. Specimen slightly ictericCBC W/PLT COUNT & AUTO [id number] 05:02 :00 Test Item Value Reference Range Comments WHITE BLOOD CELL COUNT (BEAKER) (test zdnm=100) 8.4 K/ L 3.5-10.5 RED BLOOD CELL COUNT (BEAKER) (test utju=977) 3.91 M/ L 4.63-6.08 HEMOGLOBIN (BEAKER) (test diay=975) 11.5 GM/DL 13.7-17.5 HEMATOCRIT (BEAKER) (test tuxz=816) 34.9 % 40.1-51.0 MEAN CORPUSCULAR VOLUME (BEAKER) (test ggcl=031) 89.3 fL 79.0-92.2 MEAN CORPUSCULAR HEMOGLOBIN (BEAKER) (test 29.4 pg 25.7-32.2 lkxn=324) MEAN CORPUSCULAR HEMOGLOBIN CONC (BEAKER) (test 33.0 GM/DL 32.3-36.5 znkz=426) RED CELL DISTRIBUTION WIDTH (BEAKER) (test 15.9 % 11.6-14.4 tszw=031) PLATELET COUNT (BEAKER) (test kcae=284) 372 K/CU MM 150-450 MEAN PLATELET VOLUME (BEAKER) (test xrvd=502) 9.5 fL 9.4-12.4 NUCLEATED RED BLOOD CELLS (BEAKER) (test 0 /100 WBC 0-0 jsvi=035) NEUTROPHILS RELATIVE PERCENT (BEAKER) (test 73 % rxjs=771) LYMPHOCYTES RELATIVE PERCENT (BEAKER) (test 13 % oubi=082) MONOCYTES RELATIVE PERCENT (BEAKER) (test 12 % onaw=157) EOSINOPHILS RELATIVE PERCENT (BEAKER) (test 1 % tkta=044) BASOPHILS RELATIVE PERCENT (BEAKER) (test 0 % jokc=783) NEUTROPHILS ABSOLUTE COUNT (BEAKER) (test 6.16 K/ L 1.78-5.38 lika=862) LYMPHOCYTES ABSOLUTE COUNT (BEAKER) (test 1.09 K/ L 1.32-3.57 nruy=636) MONOCYTES ABSOLUTE COUNT (BEAKER) (test 1.01 K/ L 0.30-0.82 buyf=204) EOSINOPHILS ABSOLUTE COUNT (BEAKER) (test 0.04 K/ L 0.04-0.54 tdxm=002) BASOPHILS ABSOLUTE COUNT (BEAKER) (test 0.02 K/ L 0.01-0.08 rsze=753) IMMATURE GRANULOCYTES-RELATIVE PERCENT (BEAKER) 1 % 0-1 (test hema=3918) MR, ABDOMEN, [id number] 00:05:00FINAL REPORT INDICATION:Mesenteric mass, lymphoma. Evaluate for biliary obstruction. COMPARISON: Abdomen radiograph June 08, 2018Abdomen pelvis CT June 02, 2018 TECHNIQUE: MRof the Abdomen WITHOUT intravenous contrast.MRCP, including 3-D reconstructions. FINDINGS:As demonstrated on recent CT there is a bulky mass of the central mesentery contiguous with periaortic lymphadenopathy. Right transhepatic internal/external biliary drainage catheter and stent in the common bile duct better demonstrated on radiography. Gallbladder is partly collapsed. There is no biliary ductal dilatation. Tiny amount of perihepatic and perisplenic fluid is noted. Spleen itself is unremarkable.Adrenal glands and kidneys unremarkable. Visualized bowel loops unremarkable. IMPRESSION: Central mesenteric mass, representing lymphoma. No biliary ductal dilatation. Signed: Ortiz Mckenzieort Verified Date/Time: 06/09/2018 00:05:45 Reading Location: [address] Consult Reading Room RAD, ABDOMEN/KUB, 1 VIEW [id number] 18:36:00Reason for exam:->please check corepak placement. call the nurse to see if she is ready before comingShould this be performed at the bedside?->YesFINAL REPORT INDICATION:Confirm feeding tube placement. TECHNIQUE: Abdomen radiograph one view. FINDINGS / IMPRESSION: Feeding tube takes a course of the stomach with the tip projecting over the gastric antrum (not postpyloric). Biliary catheter and stent are noted. Elevated right hemidiaphragm also noted. Signed: Ortiz Mckenzie Verified Date/Time: 06/08/2018 18:36:13 Reading Location: [facility] Consult Reading Room Electronically signed by: ORTIZ MCKENZIE M.D. on 2018 06:36 PMRAD, ABDOMEN/KUB, 1 VIEW [id number] 14:38:00Reason for exam:-> abdominal pain, nausea and vomitingFINAL REPORT TECHNIQUE : Supine radiographs of the abdomen dated 06/08/2018 HISTORY: Abdominal pain, nausea and vomiting COMPARISON: CT scan of the abdomen and pelvis dated 2018. IMPRESSION:Pigtail catheter is seen in the right upper quadrant. A biliary drain is in place. There is a paucity of bowel gas in the abdomen. There is mild distention of the stomach with air. No freeintraperitoneal air. No abnormal soft tissue mass or calcification. Bones are unremarkable. Right pleural effusion is partially visualized. Signed: Juhi Chan MDReport Verified Date/Time: 06/08/2018 14:38:19 Reading Location: [facility] Radiology Reading Room Electronically signed by: JUHI CHAN MD on 2018 02:38 [id number] 07:53:00 Test Item Value Reference Range Comments MAGNESIUM (BEAKER) (test jxtu=905) 1.9 mg/dL 1.6-2.6 CBC W/PLT COUNT & AUTO [id number] 07:43:00 Test Item Value Reference Range Comments WHITE BLOOD CELL COUNT (BEAKER) (test epqu=930) 8.8 K/ L 3.5-10.5 RED BLOOD CELL COUNT (BEAKER) (test atqb=167) 4.08 M/ L 4.63-6.08 HEMOGLOBIN (BEAKER) (test njhg=864) 12.0 GM/DL 13.7-17.5 HEMATOCRIT (BEAKER) (test staq=870) 36.1 % 40.1-51.0 MEAN CORPUSCULAR VOLUME (BEAKER) (test guwf=495) 88.5 fL 79.0-92.2 MEAN CORPUSCULAR HEMOGLOBIN (BEAKER) (test 29.4 pg 25.7-32.2 lvfe=537) MEAN CORPUSCULAR HEMOGLOBIN CONC (BEAKER) (test 33.2 GM/DL 32.3-36.5 ammu=202) RED CELL DISTRIBUTION WIDTH (BEAKER) (test 15.7 % 11.6-14.4 heeq=084) PLATELET COUNT (BEAKER) (test qtyu=218) 334 K/CU MM 150-450 MEAN PLATELET VOLUME (BEAKER) (test nuyo=036) 8.8 fL 9.4-12.4 NUCLEATED RED BLOOD CELLS (BEAKER) (test 0 /100 WBC 0-0 xwwu=801) NEUTROPHILS RELATIVE PERCENT (BEAKER) (test 77 % euvu=876) LYMPHOCYTES RELATIVE PERCENT (BEAKER) (test 13 % kemj=064) MONOCYTES RELATIVE PERCENT (BEAKER) (test 10 % lbqw=409) EOSINOPHILS RELATIVE PERCENT (BEAKER) (test 0 % adln=221) BASOPHILS RELATIVE PERCENT (BEAKER) (test 0 % gtyd=551) NEUTROPHILS ABSOLUTE COUNT (BEAKER) (test 6.72 K/ L 1.78-5.38 ejtb=273) LYMPHOCYTES ABSOLUTE COUNT (BEAKER) (test 1.09 K/ L 1.32-3.57 vdkt=138) MONOCYTES ABSOLUTE COUNT (BEAKER) (test 0.87 K/ L 0.30-0.82 kuid=883) EOSINOPHILS ABSOLUTE COUNT (BEAKER) (test 0.00 K/ L 0.04-0.54 baug=765) BASOPHILS ABSOLUTE COUNT (BEAKER) (test 0.02 K/ L 0.01-0.08 syuz=189) IMMATURE GRANULOCYTES-RELATIVE PERCENT (BEAKER) 1 % 0-1 (test xqvs=7646) COMPREHENSIVE METABOLIC [id number] 02:42:00 Test Item Value Reference Range Comments TOTAL PROTEIN (BEAKER) 6.2 gm/dL 6.0-8.3 (test croo=735) ALBUMIN (BEAKER) (test 3.0 g/dL 3.5-5.0 sjci=1728) ALKALINE PHOSPHATASE 445 U/L 40-150 (BEAKER) (test ubxh=557) BILIRUBIN TOTAL (BEAKER) 4.2 mg/dL 0.2-1.2 (test kpmp=830) SODIUM (BEAKER) (test 136 meq/L 136-145 envr=041) POTASSIUM (BEAKER) (test 4.2 meq/L 3.5-5.1 aseo=474) CHLORIDE (BEAKER) (test 100 meq/L 98-107 jvmb=985) CO2 (BEAKER) (test 18 meq/L 22-29 nsfd=558) BLOOD UREA NITROGEN 17 mg/dL 7-21 (BEAKER) (test rfrv=510) CREATININE (BEAKER) (test 0.90 mg/dL 0.57-1.25 exvd=761) GLUCOSE RANDOM (BEAKER) 116 mg/dL 70-105 (test robp=335) CALCIUM (BEAKER) (test 8.6 mg/dL 8.4-10.2 qknw=006) AST (SGOT) (BEAKER) (test 109 U/L 5-34 uehw=396) ALT (SGPT) (BEAKER) (test 141 U/L 6-55 khsh=107) EGFR (BEAKER) (test 86 mL/min/1.73 sq m ESTIMATED GFR IS NOT dtya=7098) ACCURATE CREATININE CLEARANCE IN PREDICTING GLOMERULAR FILTRATION RATE. ESTIMATED GFR IS NOT APPLICABLE FOR DIALYSIS PATIENTS. Specimen slightly ictericLACTIC ACID, VENOUS, WHOLE [id number] 02:36:00 Test Item Value Reference Range Comments LACTATE BLOOD VENOUS (2) (BEAKER) (test 1.6 mmol/L 0.5-2.2 obtm=1046) Specimen slightly ictericANG, DRAINAGE, BILIARY, [id number] 17:59:00CT imaging and biliary obstruction likely sec to lymphoma , hematology recommends PTC to relive obstruction before starting chemo Reason for exam:-> obstructive jaundice , unable to place stent by GIFINAL REPORT History: Lymphoma, biliary obstruction. PROCEDURE: Following [...] AccuStick sheath was placed. Repeat contrast injection wasperformed to confirm position of the AccuStick sheath and the common hepatic duct. An 035 angled Glidewire and 4 Mauritian Berenstein catheter were used to carefully traverse the common bile duct and select the duodenum. The Glidewire was then exchanged through the catheter for an Amplatz wire. The tractwas dilated. A 9 Mauritian peel-away sheath was placed. An 8.5 Mauritian internal/external biliary drainage catheter was then placed over the wire and through the peel-away sheath into position with its distal tip coiled in the duodenum and sideholes extending proximally into the common hepatic duct. Repeatcontrast injection was performed to confirm position of the catheter. The catheter was then secured to the skin using 2-0 silk suture and placed to external gravity bag drainage. Overall, the patient tolerated the procedure well without immediate complications and was discharged from the department tothe recovery room in stable condition. FINDINGS: Multiple [...] 2. Successful uncomplicated placement of an 8.5 Mauritian right internal/external biliary drainage catheter. Total fluoroscopy time: 28.3 minutes. Estimated total patient dose reported as (Ka,r): 676 mGy. Signed: Iban Javier MDReport Verified Date/Time: 06/07/2018 17:59:35 Reading Location: [place] [address] Angio Body Reading Room Electronically signed by: IBAN JAVIER M.D. on 2018 05:59 PMCOMPREHENSIVE METABOLIC [id number] 06:16:00 Test Item Value Reference Range Comments TOTAL PROTEIN (BEAKER) 6.3 gm/dL 6.0-8.3 (test ommc=521) ALBUMIN (BEAKER) (test 3.1 g/dL 3.5-5.0 tlnc=3217) ALKALINE PHOSPHATASE 573 U/L 40-150 (BEAKER) (test phqc=258) BILIRUBIN TOTAL (BEAKER) 5.4 mg/dL 0.2-1.2 (test yhgl=514) SODIUM (BEAKER) (test 137 meq/L 136-145 frih=442) POTASSIUM (BEAKER) (test 4.0 meq/L 3.5-5.1 uddc=492) CHLORIDE (BEAKER) (test 101 meq/L 98-107 kvlp=356) CO2 (BEAKER) (test 22 meq/L 22-29 lzhm=359) BLOOD UREA NITROGEN 11 mg/dL 7-21 (BEAKER) (test fndm=731) CREATININE (BEAKER) (test 0.73 mg/dL 0.57-1.25 ypqs=317) GLUCOSE RANDOM (BEAKER) 78 mg/dL 70-105 (test hhzz=560) CALCIUM (BEAKER) (test 9.2 mg/dL 8.4-10.2 ersp=725) AST (SGOT) (BEAKER) (test 106 U/L 5-34 sdsx=154) ALT (SGPT) (BEAKER) (test 169 U/L 6-55 wfdd=714) EGFR (BEAKER) (test 110 mL/min/1.73 sq ESTIMATED GFR IS NOT ckeb=9581) m ACCURATE CREATININE CLEARANCE IN PREDICTING GLOMERULAR FILTRATION RATE. ESTIMATED GFR IS NOT APPLICABLE FOR DIALYSIS PATIENTS. Specimen slightly ictericCBC W/PLT COUNT & AUTO [id number] 06:10 :00 Test Item Value Reference Range Comments WHITE BLOOD CELL COUNT (BEAKER) (test jfky=753) 8.9 K/ L 3.5-10.5 RED BLOOD CELL COUNT (BEAKER) (test qwyp=525) 4.23 M/ L 4.63-6.08 HEMOGLOBIN (BEAKER) (test eczk=420) 12.4 GM/DL 13.7-17.5 HEMATOCRIT (BEAKER) (test qvpw=956) 37.2 % 40.1-51.0 MEAN CORPUSCULAR VOLUME (BEAKER) (test zrjo=605) 87.9 fL 79.0-92.2 MEAN CORPUSCULAR HEMOGLOBIN (BEAKER) (test 29.3 pg 25.7-32.2 giho=052) MEAN CORPUSCULAR HEMOGLOBIN CONC (BEAKER) (test 33.3 GM/DL 32.3-36.5 uiqk=454) RED CELL DISTRIBUTION WIDTH (BEAKER) (test 15.4 % 11.6-14.4 faes=313) PLATELET COUNT (BEAKER) (test ztxy=185) 344 K/CU MM 150-450 MEAN PLATELET VOLUME (BEAKER) (test fvgg=857) 9.0 fL 9.4-12.4 NUCLEATED RED BLOOD CELLS (BEAKER) (test 0 /100 WBC 0-0 fmar=083) NEUTROPHILS RELATIVE PERCENT (BEAKER) (test 73 % jhbr=950) LYMPHOCYTES RELATIVE PERCENT (BEAKER) (test 15 % cdda=540) MONOCYTES RELATIVE PERCENT (BEAKER) (test 10 % dudn=664) EOSINOPHILS RELATIVE PERCENT (BEAKER) (test 1 % mqor=533) BASOPHILS RELATIVE PERCENT (BEAKER) (test 0 % nqij=958) NEUTROPHILS ABSOLUTE COUNT (BEAKER) (test 6.53 K/ L 1.78-5.38 ezuz=711) LYMPHOCYTES ABSOLUTE COUNT (BEAKER) (test 1.34 K/ L 1.32-3.57 qmst=795) MONOCYTES ABSOLUTE COUNT (BEAKER) (test 0.88 K/ L 0.30-0.82 kcqd=044) EOSINOPHILS ABSOLUTE COUNT (BEAKER) (test 0.06 K/ L 0.04-0.54 zthb=277) BASOPHILS ABSOLUTE COUNT (BEAKER) (test 0.02 K/ L 0.01-0.08 jbkl=014) IMMATURE GRANULOCYTES-RELATIVE PERCENT (BEAKER) 1 % 0-1 (test kiqs=2938) [id number] 06:09:00 Test Item Value Reference Range Comments MAGNESIUM (BEAKER) (test hrpu=818) 1.7 mg/dL 1.6-2.6 COMPREHENSIVE METABOLIC [id number] 06:14:00 Test Item Value Reference Range Comments TOTAL PROTEIN (BEAKER) 5.9 gm/dL 6.0-8.3 (test vzns=254) ALBUMIN (BEAKER) (test 2.9 g/dL 3.5-5.0 blum=1944) ALKALINE PHOSPHATASE 604 U/L 40-150 (BEAKER) (test mnkg=094) BILIRUBIN TOTAL (BEAKER) 8.0 mg/dL 0.2-1.2 (test grtc=041) SODIUM (BEAKER) (test 136 meq/L 136-145 pyjz=154) POTASSIUM (BEAKER) (test 3.9 meq/L 3.5-5.1 tneu=410) CHLORIDE (BEAKER) (test 102 meq/L 98-107 tavi=124) CO2 (BEAKER) (test 24 meq/L 22-29 kxiq=570) BLOOD UREA NITROGEN 7 mg/dL 7-21 (BEAKER) (test sant=952) CREATININE (BEAKER) (test 0.64 mg/dL 0.57-1.25 yklf=350) GLUCOSE RANDOM (BEAKER) 64 mg/dL 70-105 (test shsz=026) CALCIUM (BEAKER) (test 8.9 mg/dL 8.4-10.2 eijx=650) AST (SGOT) (BEAKER) (test 129 U/L 5-34 wniq=587) ALT (SGPT) (BEAKER) (test 202 U/L 6-55 fnsf=838) EGFR (BEAKER) (test 128 mL/min/1.73 sq ESTIMATED GFR IS NOT evoc=7736) m ACCURATE CREATININE CLEARANCE IN PREDICTING GLOMERULAR FILTRATION RATE. ESTIMATED GFR IS NOT APPLICABLE FOR DIALYSIS PATIENTS. Specimen moderately ictericU/S, TESTICULAR, WITH [id number] 01:46: 00Reason for exam:->left testicaular painShould this be performed at the bedside?->NoFINAL REPORT U/S, TESTICULAR, WITH DOPPLER CLINICAL INDICATION: left testicaular pain COMPARISON: None TECHNIQUE: The scrotum was evaluated using real-time miramontes scale and color and spectral Doppler sonography. FINDINGS: Right testis: Size: 3.7 x 1.7 x 3.1 cm Echotexture:Normal with no focal lesions. Color Doppler: Preserved vascular flow. A cystic structure anterior to the epididymis (image 27) and favored to be secondary from the epididymis measures 2.9 x 0.8 x 1.9 cm. It is unclear if this represents a fluid-filled loop of bowel or another fluid-filled structure. No internal vascularity or internal echoes are identified. Left testis: Size: 3.7 x 1.7 x 2.8cm Echotexture: Normal with no focal lesions. Color Doppler: Preserved vascular flow. Epididymides: Size: Normal without focal lesion. Color Doppler: Preserved vascular flow. Hydrocele: Trace hydrocele bilaterally Varicocele: None Additional findings: None. IMPRESSION: Trace hydroceles. No etiology of left testicular pain identified. Signed: Magda Bennett MDReport Verified Date/Time: 06/06/2018 01:46:19 Reading Location: [address] Neuro Reading Room [id number] 06:50:00 Test Item Value Reference Range Comments MAGNESIUM (BEAKER) (test pbhq=205) 1.9 mg/dL 1.6-2.6 BASIC METABOLIC [id number] 06:50:00 Test Item Value Reference Range Comments SODIUM (BEAKER) (test 136 meq/L 136-145 iixm=654) POTASSIUM (BEAKER) (test 3.9 meq/L 3.5-5.1 zbtv=980) CHLORIDE (BEAKER) (test 103 meq/L 98-107 fggb=975) CO2 (BEAKER) (test 21 meq/L 22-29 erlp=515) BLOOD UREA NITROGEN 9 mg/dL 7-21 (BEAKER) (test dvst=489) CREATININE (BEAKER) (test 0.78 mg/dL 0.57-1.25 ujgb=086) GLUCOSE RANDOM (BEAKER) 80 mg/dL 70-105 (test iigc=296) CALCIUM (BEAKER) (test 9.0 mg/dL 8.4-10.2 zhon=182) EGFR (BEAKER) (test 102 mL/min/1.73 sq m ESTIMATED GFR IS NOT onqw=4849) ACCURATE CREATININE CLEARANCE IN PREDICTING GLOMERULAR FILTRATION RATE. ESTIMATED GFR IS NOT APPLICABLE FOR DIALYSIS PATIENTS. Specimen moderately ictericHEPATIC FUNCTION [id number] 06:50:00 Test Item Value Reference Range Comments TOTAL PROTEIN (BEAKER) (test tpkl=242) 5.9 gm/dL 6.0-8.3 ALBUMIN (BEAKER) (test kdds=0111) 3.2 g/dL 3.5-5.0 BILIRUBIN TOTAL (BEAKER) (test qtco=745) 8.3 mg/dL 0.2-1.2 BILIRUBIN DIRECT (BEAKER) (test kgsw=873) 6.2 mg/dL 0.1-0.5 ALKALINE PHOSPHATASE (BEAKER) (test kbbd=427) 709 U/L 40-150 AST (SGOT) (BEAKER) (test bexj=679) 230 U/L 5-34 ALT (SGPT) (BEAKER) (test pfra=086) 323 U/L 6-55 Specimen moderately ictericPROTHROMBIN [id number] 06:21:00 Test Item Value Reference Range Comments PROTIME (BEAKER) (test puru=007) 13.8 seconds 11.7-14.7 INR (BEAKER) (test ybki=289) 1.0 <=5.9 RECOMMENDED COUMADIN/WARFARIN INR THERAPY RANGESSTANDARD DOSE: 2.0 - 3.0 Includes: PROPHYLAXIS forvenous thrombosis, systemic embolization; TREATMENT for venous thrombosis and/or pulmonary embolus.HIGH RISK: Target INR is 2.5-3.5 for patients with mechanical heart valves.CBC W/PLT COUNT & AUTO [id number] 06:02:00 Test Item Value Reference Range Comments WHITE BLOOD CELL COUNT (BEAKER) (test btit=423) 7.5 K/ L 3.5-10.5 RED BLOOD CELL COUNT (BEAKER) (test xpqc=473) 4.15 M/ L 4.63-6.08 HEMOGLOBIN (BEAKER) (test rctp=547) 12.4 GM/DL 13.7-17.5 HEMATOCRIT (BEAKER) (test ifwa=516) 36.7 % 40.1-51.0 MEAN CORPUSCULAR VOLUME (BEAKER) (test qmma=176) 88.4 fL 79.0-92.2 MEAN CORPUSCULAR HEMOGLOBIN (BEAKER) (test 29.9 pg 25.7-32.2 hsrz=022) MEAN CORPUSCULAR HEMOGLOBIN CONC (BEAKER) (test 33.8 GM/DL 32.3-36.5 lyob=267) RED CELL DISTRIBUTION WIDTH (BEAKER) (test 14.7 % 11.6-14.4 xgay=080) PLATELET COUNT (BEAKER) (test zxat=487) 288 K/CU MM 150-450 MEAN PLATELET VOLUME (BEAKER) (test sefn=775) 9.1 fL 9.4-12.4 NUCLEATED RED BLOOD CELLS (BEAKER) (test 0 /100 WBC 0-0 utke=058) NEUTROPHILS RELATIVE PERCENT (BEAKER) (test 73 % vmdc=975) LYMPHOCYTES RELATIVE PERCENT (BEAKER) (test 13 % baqe=101) MONOCYTES RELATIVE PERCENT (BEAKER) (test 12 % preh=485) EOSINOPHILS RELATIVE PERCENT (BEAKER) (test 1 % aibi=918) BASOPHILS RELATIVE PERCENT (BEAKER) (test 0 % fyia=654) NEUTROPHILS ABSOLUTE COUNT (BEAKER) (test 5.44 K/ L 1.78-5.38 tfec=274) LYMPHOCYTES ABSOLUTE COUNT (BEAKER) (test 0.98 K/ L 1.32-3.57 itqh=128) MONOCYTES ABSOLUTE COUNT (BEAKER) (test 0.90 K/ L 0.30-0.82 yuwu=726) EOSINOPHILS ABSOLUTE COUNT (BEAKER) (test 0.06 K/ L 0.04-0.54 rwqv=886) BASOPHILS ABSOLUTE COUNT (BEAKER) (test 0.03 K/ L 0.01-0.08 ymvw=883) IMMATURE GRANULOCYTES-RELATIVE PERCENT (BEAKER) 1 % 0-1 (test hbfl=4244) FLOW CYTOMETRY [id number] 16:36:00 Test Item Value Reference Range Comments FLOW CYTOMETRY RESULT POINTER (SUKH) See Separate Report (test jmup=5136) FLOW CYTOMETRY AP CASE # (SUKH) (test [id number] bkny=7318) FL, [id number] 14:28:00Reason for exam:->cbd stonesFINAL REPORT Fluoroscopic spot imaging was performed at the time of the procedure by the ordering service. This examination is nondiagnostic. Fluoroscopy was not performed by theundersigned, and the radiologist was not present at the time of examination. Interpretation of the images was not requested. Total fluoroscopy time: 4.4 minutes Total number of films: 1 Please refer tothe referring physician's procedure report for complete detail. Signed : Manny Smith Verified Date/Time: 06/03/2018 14:28:48 Reading Location : [address] Consult Reading Room FLOW [id number] 14:11:00Flow Cytometry Report Case: [id number] Authorizing Provider: Henry Reyes MD Collected: 06/03 0836 Ordering Location: [address] Received : 06/03/2018 1047 Service Pathologist: Ana Fernandez MD Specimen: Other PANCREATIC MASS, FINE NEEDLE ASPIRATION, FLOW CYTOMETRY:-MONOTYPIC, CD10+ B CELL POPULATION (92% OF TOTAL EVENTS)-NO ABERRANT T CELL POPULATION-SEE COMMENT at 2:11 PMThese results would support involvement by a B cell lymphoid neoplasm with a germinal center phenotype, however, should be correlated with the morphologic and other features for definitive diagnosis and subclassification. [id number] jaundice, lymphadenopathyPancreatic FNACD8, surface-kappa, CD56 , surface-lambda, CD5, CD19, CD10, CD3, CD20, CD4, [id number] Viability: 96.0 % Number of Events Acquired: [id number] B cell population identified ( 92% of cellularity) with light scatter characteristics of larger cells and the following phenotype:POSITIVE: lambda light chain restricted, CD19, CD20, CD10, [id number]: CD5, CD3 In addition, the following populations are identified: Lymphocytes: Bright CD45+ lymphocytes comprise 96.5% of total cells. T cells show a CD4:CD8 ratio of 1.3 and normal expression of the hadley T cell antigens CD3 and CD5. The abnormal B cell population isdescribed above. Myeloid/ monocytic populations: As identified by CD45 and light scatter characteristics, granulocytes comprise 3% of cells analyzed, and monocytes comprise less than 0.1 % of total cells. The remaining events analyzed represent nonviable cells, non- hematolymphoid cells, and debris.These tests were developed and their performance characteristics determined by [facility]. They have not been cleared or approved by the U.S. Food and Drug Administration. The FDA has determined that such clearance or approval is not necessary. It should not be regarded as investigational or for research. This laboratory is certified under the Clinical Laboratory Improvement Amendments of 1988 ("CLIA") as qualified to perform high-complexity clinical testing.FINE NEEDLE ASPIRATE (FNA) [id number] 12:01:00 Test Item Value Reference Range Comments CYTOLOGY RESULT POINTER (BEAKER) (test See Separate Report cdhb=[id number]) POCT-GLUCOSE [id number] 09:41:00 Test Item Value Reference Range Comments POC-GLUCOSE METER (BEAKER) 70 mg/dL 70-110 TESTED AT [address] (test lmcl=1244) [facility] [id number] PROTHROMBIN [id number] 05:19:00 Test Item Value Reference Range Comments PROTIME (BEAKER) (test icbl=588) 13.3 seconds 11.7-14.7 INR (BEAKER) (test nnmn=128) 1.0 <=5.9 RECOMMENDED COUMADIN/WARFARIN INR THERAPY RANGESSTANDARD DOSE: 2.0 - 3.0 Includes: PROPHYLAXIS forvenous thrombosis, systemic embolization; TREATMENT for venous thrombosis and/or pulmonary embolus.HIGH RISK: Target INR is 2.5-3.5 for patients with mechanical heart valves.[id number] 05:08:00 Test Item Value Reference Range Comments MAGNESIUM (BEAKER) (test tque=634) 2.1 mg/dL 1.6-2.6 BASIC METABOLIC [id number] 05:08:00 Test Item Value Reference Range Comments SODIUM (BEAKER) (test 134 meq/L 136-145 ekvl=967) POTASSIUM (BEAKER) (test 4.1 meq/L 3.5-5.1 hmnm=955) CHLORIDE (BEAKER) (test 101 meq/L 98-107 zvfb=357) CO2 (BEAKER) (test 21 meq/L 22-29 msoy=704) BLOOD UREA NITROGEN 9 mg/dL 7-21 (BEAKER) (test owzu=609) CREATININE (BEAKER) (test 0.72 mg/dL 0.57-1.25 pnvv=136) GLUCOSE RANDOM (BEAKER) 74 mg/dL 70-105 (test gndh=210) CALCIUM (BEAKER) (test 8.5 mg/dL 8.4-10.2 pukp=396) EGFR (BEAKER) (test 112 mL/min/1.73 sq m ESTIMATED GFR IS NOT bnaz=1143) ACCURATE CREATININE CLEARANCE IN PREDICTING GLOMERULAR FILTRATION RATE. ESTIMATED GFR IS NOT APPLICABLE FOR DIALYSIS PATIENTS. Specimen moderately ictericHEPATIC FUNCTION [id number] 05:08:00 Test Item Value Reference Range Comments TOTAL PROTEIN (BEAKER) (test delq=768) 6.0 gm/dL 6.0-8.3 ALBUMIN (BEAKER) (test tasv=3274) 3.3 g/dL 3.5-5.0 BILIRUBIN TOTAL (BEAKER) (test xwzc=493) 7.0 mg/dL 0.2-1.2 BILIRUBIN DIRECT (BEAKER) (test wpfx=647) 5.5 mg/dL 0.1-0.5 ALKALINE PHOSPHATASE (BEAKER) (test iwga=633) 669 U/L 40-150 AST (SGOT) (BEAKER) (test esgl=316) 233 U/L 5-34 ALT (SGPT) (BEAKER) (test wkaf=944) 356 U/L 6-55 Specimen moderately ictericCBC W/PLT COUNT & AUTO [id number] 04: 52:00 Test Item Value Reference Range Comments WHITE BLOOD CELL COUNT (BEAKER) (test glby=323) 8.4 K/ L 3.5-10.5 RED BLOOD CELL COUNT (BEAKER) (test wjgk=351) 4.30 M/ L 4.63-6.08 HEMOGLOBIN (BEAKER) (test rovt=005) 12.5 GM/DL 13.7-17.5 HEMATOCRIT (BEAKER) (test toxx=965) 38.2 % 40.1-51.0 MEAN CORPUSCULAR VOLUME (BEAKER) (test olzi=751) 88.8 fL 79.0-92.2 MEAN CORPUSCULAR HEMOGLOBIN (BEAKER) (test 29.1 pg 25.7-32.2 smuc=905) MEAN CORPUSCULAR HEMOGLOBIN CONC (BEAKER) (test 32.7 GM/DL 32.3-36.5 hcet=357) RED CELL DISTRIBUTION WIDTH (BEAKER) (test 14.2 % 11.6-14.4 hflk=618) PLATELET COUNT (BEAKER) (test chve=190) 286 K/CU MM 150-450 MEAN PLATELET VOLUME (BEAKER) (test fvwr=125) 8.9 fL 9.4-12.4 NUCLEATED RED BLOOD CELLS (BEAKER) (test 0 /100 WBC 0-0 hjni=258) NEUTROPHILS RELATIVE PERCENT (BEAKER) (test 77 % bitb=908) LYMPHOCYTES RELATIVE PERCENT (BEAKER) (test 11 % tnlp=728) MONOCYTES RELATIVE PERCENT (BEAKER) (test 10 % pkpf=322) EOSINOPHILS RELATIVE PERCENT (BEAKER) (test 1 % shtq=268) BASOPHILS RELATIVE PERCENT (BEAKER) (test 1 % rvch=174) NEUTROPHILS ABSOLUTE COUNT (BEAKER) (test 6.46 K/ L 1.78-5.38 kexs=360) LYMPHOCYTES ABSOLUTE COUNT (BEAKER) (test 0.91 K/ L 1.32-3.57 hixt=916) MONOCYTES ABSOLUTE COUNT (BEAKER) (test 0.84 K/ L 0.30-0.82 ikbf=867) EOSINOPHILS ABSOLUTE COUNT (BEAKER) (test 0.11 K/ L 0.04-0.54 cldr=651) BASOPHILS ABSOLUTE COUNT (BEAKER) (test 0.05 K/ L 0.01-0.08 fehn=446) IMMATURE GRANULOCYTES-RELATIVE PERCENT (BEAKER) 0 % 0-1 (test vqph=3098) CT, CHEST, WITH [id number] 21:26:00FINAL REPORT History: Adenopathy, suspected lymphoma. TECHNIQUE: Helical CT of the wrist, abdomen and pelvis were performed following the uneventful administration of intravenousand positive oral contrast utilizing multiple windows, sagittal [...] in the right lower lobe, possibly atelectasis and/ or lung scarring. Lungs are otherwise clear. No [...] possibly accounting for the mildly dilated stomach. Vesselsare unremarkable. Bones are unremarkable. Pelvic CT: Colonic diverticula are present. The colon is decompressed and there are mild inflammatory changes of the surrounding fat in the region of the sigmoid colon. Given the diffuse hazy appearance of the mesenteric fat, this is unlikely to represent a focal inflammatory process such as diverticulitis. Pelvic organs including the rectum , prostate gland,urinary bladder and other visible portions of the bowel are unremarkable. The appendix is not definitively identified and may be surgically absent. No indirect signs for acute appendicitis. No pelvic adenopathy is seen. No pelvic fluid collections. Vessels and bones are unremarkable. IMPRESSION: 1. Extensive and bulky mediastinal and retroperitoneal adenopathy as described above, most consistent withlymphoma. 2. Scattered colonic diverticula without definitive evidence for acute diverticulitis. Extensive stranding of the mesenteric fat is seen, possibly representing edema. 3. Mildly distended gallbladder and mild intrahepatic biliary ductal dilatation. 4. Focal opacity in the right lower lobe, likely atelectasis. 5. Mildly distended stomach and partially effaced and possibly obstructed distal duodenum. Signed: Iban Javier MDReport Verified Date/Time: 06/02/2018 21:26:56 Reading Location: [facility] Diagnostic Imaging Reading Room - [place] [id number] Electronically signed by: IBAN JAVIER M.D.on 06/02/2018 09:26 PMCT, [id number] 21:26:00FINAL REPORT History: Adenopathy, suspected lymphoma. TECHNIQUE : Helical CT of the wrist, abdomen and pelvis were performed following the uneventful administration of intravenousand positive oral contrast utilizing multiple windows, sagittal and coronal reformations. This exam was performed according to our departmental diverticulitis. Optimization program which includes automated exposure control, adjustment of the mA and/or KV according to the patient's size and/or use of iterative reconstruction technique. FINDINGS : No comparisons are available. Chest CT: Extensive [...] possibly accounting for the mildly dilated stomach. Vesselsare unremarkable. Bones are unremarkable. Pelvic CT: Colonic diverticula are present. The colon is decompressed and there are mild inflammatory changes of the surrounding fat in the region of the sigmoid colon. Given the diffuse hazy appearance of the mesenteric fat, this is unlikely to represent a focal inflammatory process such as diverticulitis. Pelvic organs including the rectum , prostate gland,urinary bladder and other visible portions of the bowel are unremarkable. The appendix is not definitively identified and may be surgically absent. No indirect signs for acute appendicitis. No pelvic adenopathy is seen. No pelvic fluid collections. Vessels and bones are unremarkable. IMPRESSION: 1. Extensive and bulky mediastinal and retroperitoneal adenopathy as described above, most consistent withlymphoma. 2. Scattered colonic diverticula without definitive evidence for acute diverticulitis. Extensive stranding of the mesenteric fat is seen, possibly representing edema. 3. Mildly distended gallbladder and mild intrahepatic biliary ductal dilatation. 4. Focal opacity in the right lower lobe, likely atelectasis. 5. Mildly distended stomach and partially effaced and possibly obstructed distal duodenum. Signed: Iban Javier MDReport Verified Date/Time: 06/02/2018 21:26:56 Reading Location: [facility] Diagnostic Imaging Reading Room - [place] [id number] Electronically signed by: IBAN JAVIER M.D.on 06/02/2018 09:26 PMHEPATITIS B [id number] 21:02:00 Test Item Value Reference Range Comments HEPATITIS B CORE TOTAL ANTIBODY (BEAKER) (test Reactive Nonreactive jjfv=601) HEPATITIS B SURFACE ANTIBODY (BEAKER) (test 735.9 mIU/mL <8.0 ltod=209) HEPATITIS B SURFACE ANTIGEN (2) (BEAKER) (test Nonreactive Nonreactive msyj=4244) HEPATITIS C [id number] 20:19:00 Test Item Value Reference Range Comments HEPATITIS C ANTIBODY (BEAKER) (test chqd=154) Nonreactive Nonreactive URINALYSIS W/ [id number] 16:41:00 Test Item Value Reference Range Comments COLOR (BEAKER) (test uacf=914) Dark Yellow CLARITY (BEAKER) (test upns=985) Clear SPECIFIC GRAVITY UA (BEAKER) (test bezh=966) 1.026 1.001-1.035 PH UA (BEAKER) (test xgnq=279) 6.5 5.0-8.0 PROTEIN UA (BEAKER) (test zbti=532) 30 mg/dL Negative GLUCOSE UA (BEAKER) (test aiaf=668) Negative Negative KETONES UA (BEAKER) (test lltq=653) >150 mg/dL Negative BILIRUBIN UA (BEAKER) (test pits=543) Positive Negative BLOOD UA (BEAKER) (test rbxi=814) Negative Negative NITRITE UA (BEAKER) (test edbl=948) Negative Negative LEUKOCYTE ESTERASE UA (BEAKER) (test wlau=520) Negative Negative UROBILINOGEN UA (BEAKER) (test xhqv=041) 2.0 mg/dL 0.2-1.0 RBC UA (BEAKER) (test vjgo=419) 1 /HPF WBC UA (BEAKER) (test iwcj=165) 1 /HPF MUCUS (BEAKER) (test yukh=5333) Occasional SQUAMOUS EPITHELIAL (BEAKER) (test vdnq=877) < /HPF SOURCE(BEAKER) (test pplf=3438) HIV-1 ANTIGEN WITH HIV-1/2 [id number] 06:55:00 Test Item Value Reference Range Comments HIV-1 ANTIGEN WITH HIV 1\\T\\2 ANTIBODY (2) Nonreactive Nonreactive (BEAKER) (test xfog=5874) [id number] 06:42:00 Test Item Value Reference Range Comments MAGNESIUM (BEAKER) (test becn=780) 1.6 mg/dL 1.6-2.6 BASIC METABOLIC [id number] 06:42:00 Test Item Value Reference Range Comments SODIUM (BEAKER) (test 133 meq/L 136-145 tini=604) POTASSIUM (BEAKER) (test 4.0 meq/L 3.5-5.1 mnzb=577) CHLORIDE (BEAKER) (test 98 meq/L 98-107 hqee=957) CO2 (BEAKER) (test 22 meq/L 22-29 uwcz=164) BLOOD UREA NITROGEN 11 mg/dL 7-21 (BEAKER) (test ykvj=557) CREATININE (BEAKER) (test 0.76 mg/dL 0.57-1.25 ypts=615) GLUCOSE RANDOM (BEAKER) 65 mg/dL 70-105 (test rzbz=272) CALCIUM (BEAKER) (test 8.4 mg/dL 8.4-10.2 npvl=090) EGFR (BEAKER) (test 105 mL/min/1.73 sq m ESTIMATED GFR IS NOT kojj=0798) ACCURATE CREATININE CLEARANCE IN PREDICTING GLOMERULAR FILTRATION RATE. ESTIMATED GFR IS NOT APPLICABLE FOR DIALYSIS PATIENTS. Specimen moderately ictericHEPATIC FUNCTION [id number] 06:42:00 Test Item Value Reference Range Comments TOTAL PROTEIN (BEAKER) (test hrpl=695) 6.3 gm/dL 6.0-8.3 ALBUMIN (BEAKER) (test jobz=3988) 3.5 g/dL 3.5-5.0 BILIRUBIN TOTAL (BEAKER) (test flwg=480) 6.0 mg/dL 0.2-1.2 BILIRUBIN DIRECT (BEAKER) (test htfh=164) 4.8 mg/dL 0.1-0.5 ALKALINE PHOSPHATASE (BEAKER) (test psnt=675) 609 U/L 40-150 AST (SGOT) (BEAKER) (test xxza=072) 221 U/L 5-34 ALT (SGPT) (BEAKER) (test oyoa=074) 416 U/L 6-55 Specimen moderately ictericLACTATE DEHYDROGENASE (LDH)2018-06-02 06:42:00 Test Item Value Reference Range Comments LACTATE DEHYDROGENASE (BEAKER) (test ucfq=135) 474 U/L 125-220 CBC W/PLT COUNT & AUTO [id number] 06:38:00 Test Item Value Reference Range Comments WHITE BLOOD CELL COUNT (BEAKER) (test ylpm=141) 8.3 K/ L 3.5-10.5 RED BLOOD CELL COUNT (BEAKER) (test emdw=006) 4.54 M/ L 4.63-6.08 HEMOGLOBIN (BEAKER) (test grvu=852) 13.3 GM/DL 13.7-17.5 HEMATOCRIT (BEAKER) (test xzfj=699) 39.7 % 40.1-51.0 MEAN CORPUSCULAR VOLUME (BEAKER) (test flkm=329) 87.4 fL 79.0-92.2 MEAN CORPUSCULAR HEMOGLOBIN (BEAKER) (test 29.3 pg 25.7-32.2 kfrg=520) MEAN CORPUSCULAR HEMOGLOBIN CONC (BEAKER) (test 33.5 GM/DL 32.3-36.5 fvie=185) RED CELL DISTRIBUTION WIDTH (BEAKER) (test 13.5 % 11.6-14.4 dlqw=199) PLATELET COUNT (BEAKER) (test bbqz=260) 321 K/CU MM 150-450 MEAN PLATELET VOLUME (BEAKER) (test ejiw=323) 9.2 fL 9.4-12.4 NUCLEATED RED BLOOD CELLS (BEAKER) (test 0 /100 WBC 0-0 bsvb=137) NEUTROPHILS RELATIVE PERCENT (BEAKER) (test 74 % dgux=112) LYMPHOCYTES RELATIVE PERCENT (BEAKER) (test 15 % sqcz=233) MONOCYTES RELATIVE PERCENT (BEAKER) (test 8 % esgb=275) EOSINOPHILS RELATIVE PERCENT (BEAKER) (test 1 % lnpb=925) BASOPHILS RELATIVE PERCENT (BEAKER) (test 1 % olew=766) NEUTROPHILS ABSOLUTE COUNT (BEAKER) (test 6.17 K/ L 1.78-5.38 demc=002) LYMPHOCYTES ABSOLUTE COUNT (BEAKER) (test 1.27 K/ L 1.32-3.57 yjwa=621) MONOCYTES ABSOLUTE COUNT (BEAKER) (test 0.70 K/ L 0.30-0.82 oiqq=931) EOSINOPHILS ABSOLUTE COUNT (BEAKER) (test 0.09 K/ L 0.04-0.54 afez=728) BASOPHILS ABSOLUTE COUNT (BEAKER) (test 0.05 K/ L 0.01-0.08 blsw=960) IMMATURE GRANULOCYTES-RELATIVE PERCENT (BEAKER) 1 % 0-1 (test brhl=8984) PROTHROMBIN [id number] 06:35:00 Test Item Value Reference Range Comments PROTIME (BEAKER) (test cxul=414) 12.6 seconds 11.7-14.7 INR (BEAKER) (test zkdh=705) 0.9 <=5.9 RECOMMENDED COUMADIN/WARFARIN INR THERAPY RANGESSTANDARD DOSE: 2.0 - 3.0 Includes: PROPHYLAXIS forvenous thrombosis, systemic embolization; TREATMENT for venous thrombosis and/or pulmonary embolus.HIGH RISK: Target INR is 2.5-3.5 for patients with mechanical heart valves.U/S, ABDOMINAL, [id number] 04: 08:00Reason for exam:->assess biliary systemFINAL REPORT INDICATION: assess biliary system COMPARISON: None. TECHNIQUE: Real- time transabdominal miramontes scale and color Doppler ultrasound of the abdomen. FINDINGS:Liver: Size: 14.2cm. Echogenicity: Somewhat heterogeneous hepatic echotexture. Masses/lesions: There is a 2.6 x 2.8 x 2.5 cm hypoechoic nodule in the posterior aspect of the right liver targetoid appearance. Surface Nodularity: None. Intrahepatic bile ducts: Mild intrahepatic biliary ductaldilatation. Common bile duct: 0.6 cm. MPV: 1.1cm. Gallbladder: Stones: None. Sludge: None. Wall thickness: 0.3 cm. The gallbladder lumen is nondistended. Pericholecystic fluid:None. Sonographic Isbell's sign: No sonographic Isbell's sign. Pancreas: Head and uncinate process: Not well seen however there are multiple hypoechoic masses in the peripancreatic region the largest of which is posterior to the pancreatic tail measuring 11.2 x 8.8 x 12.9 cm. Body and tail: Not well- seen. Spleen: Size: 10.4cm. Echogenicity: Unremarkable. Right kidney: Size: 10.2 x 4.4 x 5.4 cm. Parenchyma: Normal echogenicity. No cysts. No stones. Hydronephrosis: None. Left kidney: Size: 11.6 x 6.0 x 6.1 cm. Parenchyma: Normal echogenicity. No cysts. No stones. Hydronephrosis : None. Ascites: None. Regional Vasculature: The visible [...] pancreatic protocol cross-sectional imaging. Signed: Russel Jenkins [facility] Verified Date/Time: 06/02/2018 04:08:06 Reading Location: [facility] B1 C013T Transitional Reading Room
[2018-07-18] MEDS ORDERED: PIPER/TAZO/NS 3.375gm 3.375 GM/100 ML BAG ONE (18:56)
[2018-07-18] MEDS ORDERED: NA CHLORIDE 0.9% 1,000 ML ONE ×2 (18:57→19:46)
--- NOTE | 2018-07-18 19:13 | RAD REPORT ---
EXAM DESCRIPTION: RAD - Chest Single View - 07/18/2018 7:00 pm CLINICAL HISTORY: Dyspnea, productive cough, shortness of breath COMPARISON: May 2018 TECHNIQUE: AP portable chest image was obtained 1857 hours . FINDINGS: Pleural effusion and right base atelectasis are present. The volume is likely mild. The pa tient has a known elevated right hemidiaphragm which could accentuate artifactually the amount of ple ural fluid. No left-sided pleural effusion. Right-sided Port-A-Cath has been placed. Heart and vascul ature are normal. No pneumothorax. No acute bony abnormality seen. No acute aortic findings suspected . IMPRESSION: Small right pleural effusion with right base infiltrate and/ or atelectasis accentuated by the pre-existing elevated right hemidiaphragm.
[2018-07-18 19:21] LABS: Absolute Lymphocytes (CBC) 1.2 K/uL (0.7-4.9); Absolute Monocytes 0.1 K/uL (0.1-1.3); Absolute Neutrophil 0.3 K/uL (1.8-8.0); Basophils % 0.6 % (0-1.3); Eosinophils % 3.1 % (0-4.4); Hematocrit 32.3 % (39.6-49.0); Lymphocytes % 74.8 % (15.3-44.8); MPV 7.5 fL (7.6-11.3); RBC Red Blood Cell Count 3.93 M/uL (4.33-5.43)
[2018-07-18 19:24] LABS: Protime INR 1.28
[2018-07-18] MEDS ORDERED: ONDANSETRON 4 MG/2 ML VIAL ONE (19:26)
[2018-07-18 19:37] LABS: ALT/SGPT 50 U/L (12-78); AST/SGOT 24 U/L (15-37); Albumin 2.6 g/dL (3.4-5.0); Alkaline Phosphatase 108 U/L (45-117); BUN Blood Urea Nitrogen 17 mg/dL (7-18); Bicarbonate 25 mmol/L (21-32); Bilirubin Direct 0.4 mg/dL (0-0.2); Bilirubin Total 0.6 mg/dL (0.2-1.0); Glucose Level 104 mg/dL (74-106); Lipase 117 U/L (73-393); Potassium 3.6 mmol/L (3.5-5.1); Protein, Total 7.3 g/dL (6.4-8.2); Sodium Level 136 mmol/L (136-145); Troponin (Emerg Dept Use Only) < 0.02 ng/mL (0.0-0.045)
[2018-07-18] MEDS ORDERED: HYDROCODONE/CHLORPHEN 5 ML/OSYR ONE (19:47)
[2018-07-18 19:48] LABS: Blood Morphology Comment NOTED (NOT SEEN); Platelet Estimate ADEQ
[2018-07-18 19:49] LABS: Stomatocytes 1+
[2018-07-18] MEDS ORDERED: ACETAMINOPHEN 325 MG TABLET ONE (20:35)
--- NOTE | 2018-07-18 21:06 | RAD REPORT ---
EXAM DESCRIPTION: CT - Thorax W/ Con - 07/18/2018 8:47 pm CLINICAL HISTORY: Fever, productive cough, history of lymphoma with ongoing chemotherapy COMPARISON: Chest films same date TECHNIQUE: Dynamically enhanced 5 mm thick images of the chest were obtained during administration o f 100 mL non-ionic IV contrast. All CT scans are performed using dose optimization technique as appropriate and may include automated exposure control or mA/KV adjustment according to patient size. FINDINGS: Left lung field is clear. No left-sided pleural effusion, pleural thickening or mass. Righ t hemidiaphragm elevation is noted. Moderately large right pleural effusion is present. This is proba jorge loculated. Patchy parenchymal opacification is present in the right base most likely atelectasis. No endobronchial lesion. No pneumothorax. No chest wall mass or abnormal axillary lymphadenopathy. No pericardial thickening or effusion. No abnormal mediastinal or hilar mass or lymphadenopathy seen. Limited upper abdomen imaging shows percutaneous biliary drainage. Pancreatic stent is also in place. IMPRESSION: Moderately large loculated right pleural effusion. Right lung field parenchymal stranding is most likely atelectasis and scarring change. Acute pneumoni a is not entirely excluded but felt to be on likely. Left hemithorax is clear.
--- NOTE | 2018-07-18 22:16 | ER ---
Nurse's Notes [facility] Name: Jimbo Phipps Age: 57 yrs Sex: Male : 1960 Arrival Date: 07/18/2018 Time: 18:14 Bed 6 Private MD: Diagnosis: Neutropenia;Fever, unspecified Presentation: 07/18 18:21 Presenting complaint: Patient states: productive cough that began 2-3 days ago. Pt aa5 denies SOB. Pt reports 2nd Chemo was 1 week ago. Transition of care: patient was not received from another setting of care. Onset of symptoms was July 2018. Care prior to arrival: None. 18:21 Method Of Arrival: Ambulatory aa5 18:21 Acuity: ANTONIO 2 aa5 20:15 Risk Assessment: Do you want to hurt yourself or someone else? Patient reports no tl2 desire to harm self or others. Initial Sepsis Screen: Does the patient meet any 2 criteria? HR > 90 bpm. Does the patient have a suspected source of infection? No. Patient's initial sepsis screen is negative. Triage Assessment: 18:30 General: Appears distressed, comfortable, slender, Behavior is cooperative, appropriate bp for age, anxious. Pain: Denies pain. EENT: No deficits noted. Neuro: Level of Consciousness is awake, alert, obeys commands, Oriented to person, place, time, situation, Appropriate for age. Cardiovascular: No deficits noted. Respiratory: Reports shortness of breath cough that is productive, Onset: The symptoms/episode began/occurred at an unknown time. the patient has moderate shortness of breath. GI: No signs and/or symptoms were reported involving the gastrointestinal system. : No signs and/or symptoms were reported regarding the genitourinary system. Derm: No deficits noted. Musculoskeletal: Circulation, motion, and sensation intact. Range of motion: intact in all extremities. Historical: - Allergies: 18:22 No Known Allergies; aa5 - PMHx: 18:22 Lymphoma; Chemotherapy; aa5 18:24 Hypertension; aa5 - PSHx: 18:24 port-a-cath; sx for lymphoma to liver; aa5 - Immunization history:: Adult Immunizations up to date. - Social history:: Smoking status: Patient/guardian denies using tobacco. - Ebola Screening: : No symptoms or risks identified at this time. Screenin:12 Abuse screen: Denies threats or abuse. Denies injuries from another. Nutritional bp screening: No deficits noted. Tuberculosis screening: No symptoms or risk factors identified. Fall Risk None identified. Assessment: 18:30 General: Appears in no apparent distress. uncomfortable, ill, slender, Behavior is bp cooperative, appropriate for age, anxious. Pain: Complains of pain in chest. Neuro: Level of Consciousness is awake, alert, obeys commands, Oriented to person, place, time, situation, Appropriate for age. Cardiovascular: Rhythm is sinus tachycardia. Respiratory: Airway is patent Respiratory effort is even, labored, Respiratory pattern is regular, Breath sounds are coarse bilaterally. GI: Reports nausea. : No signs and/or symptoms were reported regarding the genitourinary system. EENT: No deficits noted. Derm: No deficits noted. Musculoskeletal: Circulation, motion, and sensation intact. Range of motion: intact in all extremities. 20:14 Reassessment: O2 decreased to 89% on RA, placed on 3 L per nc, O2 increased to 94%. Pt tl2 states that tussionex improved his cough, pt is resting comfortably, 2nd liter of fluid infusing. 21:00 Reassessment: Patient appears in no apparent distress at this time. Patient and/or tl2 family updated on plan of care and expected duration. Pain level reassessed. Patient is alert, oriented x 3, equal unlabored respirations, skin warm/dry/pink. 22:00 Reassessment: Patient appears in no apparent distress at this time. Patient and/or tl2 family updated on plan of care and expected duration. Pain level reassessed. Patient is alert, oriented x 3, equal unlabored respirations, skin warm/dry/pink. 23:00 Reassessment: Patient appears in no apparent distress at this time. Patient and/or tl2 family updated on plan of care and expected duration. Pain level reassessed. Patient is alert, oriented x 3, equal unlabored respirations, skin warm/dry/pink. Vital Signs: 18:24 BP 94 / 75; Pulse 121; Resp 20 S; Temp 100.2(O); Pulse Ox 93% on R/A; Weight 65.32 kg aa5 (R); Pain 0/10; 19:25 BP 94 / 70; Pulse 121; Resp 25; Pulse Ox 95% on R/A; tl2 20:10 Pulse Ox 94% on R/A; tl2 20:10 BP 94 / 51; Pulse 115; Resp 23; Temp 100.8(O); Pulse Ox 90% on R/A; tl2 21:00 BP 105 / 78; Pulse 106; Resp 16; Pulse Ox 97% on 2 lpm NC; tl2 22:08 BP 91 / 57; Pulse 107; Resp 18; Pulse Ox 97% on 2 lpm NC; tl2 22:23 BP 90 / 57; Pulse 102; Resp 18; Temp 99.3(O); Pulse Ox 97% on 4 lpm NC; tl2 23:05 BP 90 / 59; Pulse 96; Resp 18; Pulse Ox 97% on 3 lpm NC; tl2 ED Course: 18:14 Patient arrived in ED. as 18:21 Arm band placed on. aa5 18:22 Triage completed. aa5 18:29 Regino Ramos PA is PHCP. jr8 18:29 Balta Ponce MD is Attending Physician. jr8 18:29 Cameron Blunt, TOMI is Primary Nurse. bp 18:50 First set of blood cultures drawn by me, EKG done, by ED staff, reviewed by Regino Ramos jb1 PA. 18:59 Chest Single View XRAY In Process Unspecified. EDMS 19:05 Second set of blood cultures drawn by me. jb1 19:12 Patient has correct armband on for positive identification. Placed in gown. Bed in low bp position. Call light in reach. Side rails up X2. Adult w/ patient. 19:13 Inserted saline lock: 22 gauge in right antecubital area, using aseptic technique. bp Blood collected. 20:47 CT Chest W/ Con In Process Unspecified. EDMS 22:14 Constantino Araiza MD is Hospitalizing Provider. jr8 23:00 No provider procedures requiring assistance completed. Patient admitted, IV remains in tl2 place. Administered Medications: 19:19 Drug: NS 0.9% (30 ml/kg) 30 ml/kg {Note: first liter started at 1919.} Route: IV; Rate: tl2 bolus; Site: right antecubital; 20:21 Follow up: 2nd liter started at 2014 tl2 22:00 Follow up: IV Status: Completed infusion; IV Intake: 2000ml tl2 19:19 Drug: Zosyn 3.375 grams Route: IVPB; Infused Over: 60 mins; Site: right antecubital; tl2 20:00 Follow up: IV Status: Completed infusion; IV Intake: 100ml tl2 19:19 Drug: Zofran 4 mg Route: IVP; Site: right antecubital; tl2 20:00 Follow up: Response: No adverse reaction; Nausea is decreased tl2 19:37 Drug: Tussionex Pennkinetic ER 5 ml Route: PO; tl2 20:20 Follow up: Response: No adverse reaction; Marked relief of symptoms tl2 20:25 Drug: Tylenol 650 mg Route: PO; tl2 22:00 Follow up: Response: No adverse reaction; Temperature is decreased tl2 Intake: 20:00 IV: 100ml; Total: 100ml. tl2 22:00 IV: 2000ml; Total: 2100ml. tl2 Outcome: 22:15 Decision to Hospitalize by Provider. jr8 23:00 Admitted to ER Hold. Please see [facility] for further documentation. tl2 23:00 Condition: stable 23:00 Discharge instructions given to patient, family, Instructed on the need for admit. 07/19 01:58 Patient left the ED. tl2 Signatures: Dispatcher [employer] EDMS Estuardo Jenkins jb1 Julia Knowles Audri, RN RN aa5 Regino Ramos PA PA jr8 Siri Yip RN RN tl2 Cameron Blunt RN RN bp Corrections: (The following items were deleted from the chart) 07/18 20:25 20:10 BP 94 / 51; Pulse 115bpm; Resp 23bpm; Pulse Ox 90% RA; tl2 tl2 22:24 22:23 BP 90 / 57; Pulse 102bpm; Resp 18bpm; Pulse Ox 97% 4 lpm Nasal Cannula; tl2 tl2
--- NOTE | 2018-07-18 22:16 | EDPHYS ---
Physician Documentation [facility] Name: Jimbo Phipps Age: 57 yrs Sex: Male : 1960 Arrival Date: 07/18/2018 Time: 18:14 Bed 6 Private MD: LIV Physician Balta Ponce HPI: 07/18 18:15 This 57 yrs old Male presents to ER via Ambulatory with complaints of jr8 Shortness Of Breath, Cough. 18:15 The patient has shortness of breath at rest. Onset: The symptoms/episode began/occurred jr8 gradually, 1 week(s) ago. Duration: The symptoms are continuous. Duration: The symptoms are continuous, and are steadily getting worse. The patient's shortness of breath is aggravated by exertion. Associated signs and symptoms: Pertinent positives: productive cough, fever, Pertinent negatives: chest pain, dizziness, hemoptysis, nausea, vomiting. The patient has experienced a previous episode. The patient has been recently seen by a physician: the patient's primary care provider. Patient is currently receiving chemotherapy for lymphoma. During his first round of chemotherapy he reports that he developed a pleural effusion which required him to be admitted into the hospital. He just finished his second round of chemotherapy and he reports similar symptoms as before; fatigue, SOB, and cough. . Historical: - Allergies: 18:22 No Known Allergies; aa5 - PMHx: 18:22 Lymphoma; Chemotherapy; aa5 18:24 Hypertension; aa5 - PSHx: 18:24 port-a-cath; sx for lymphoma to liver; aa5 - Immunization history:: Adult Immunizations up to date. - Social history:: Smoking status: Patient/guardian denies using tobacco. - Ebola Screening: : No symptoms or risks identified at this time. ROS: 18:15 Cardiovascular: Negative for chest pain, palpitations, and edema, Abdomen/GI: Negative jr8 for abdominal pain, nausea, vomiting, diarrhea, and constipation, MS/Extremity: Negative for injury and deformity, Skin: Negative for injury, rash, and discoloration, Neuro: Negative for headache, weakness, numbness, tingling, and seizure. 18:15 Constitutional: Positive for fatigue, malaise, Negative for body aches, chills, fever. 18:15 Respiratory: Positive for cough, with no reported sputum, orthopnea, shortness of breath. Exam: 18:59 Constitutional: This is a well developed, well nourished patient who is awake, alert, jr8 and in no acute distress. ENT: Nares patent. No nasal discharge, no septal abnormalities noted. Tympanic membranes are normal and external auditory canals are clear. Oropharynx with no redness, swelling, or masses, exudates, or evidence of obstruction, uvula midline. Mucous membranes moist. 18:59 Cardiovascular: Regular rate and rhythm with a normal S1 and S2. No gallops, murmurs, or rubs. Normal PMI, no JVD. No pulse deficits. Abdomen/GI: Soft, non-tender, with normal bowel sounds. No distension or tympany. No guarding or rebound. No evidence of tenderness throughout. 18:59 Skin: Warm, dry with normal turgor. Normal color with no rashes, no lesions, and no evidence of cellulitis. MS/ Extremity: Pulses equal, no cyanosis. Neurovascular intact. Full, normal range of motion. Neuro: Awake and alert, GCS 15, oriented to person, place, time, and situation. Cranial nerves II-XII grossly intact. Motor strength 5/5 in all extremities. Sensory grossly intact. Cerebellar exam normal. Normal gait. 18:59 Eyes: Pupils: equal, round, and reactive to light and accomodation, Extraocular movements: intact throughout, Conjunctiva: pale, bilaterally, Sclera: no appreciated abnormality. 18:59 Respiratory: the patient does not display signs of respiratory distress, Respirations: normal, symetrical, no use of accessory muscles, no grunting, no evidence of nasal flaring, no pursed lip breathing, no retractions, Breath sounds: crackles to bilateral lung bases. 19:02 ECG was reviewed by the Attending Physician. [facility] Vital Signs: 18:24 BP 94 / 75; Pulse 121; Resp 20 S; Temp 100.2(O); Pulse Ox 93% on R/A; Weight 65.32 kg aa5 (R); Pain 0/10; 19:25 BP 94 / 70; Pulse 121; Resp 25; Pulse Ox 95% on R/A; tl2 20:10 Pulse Ox 94% on R/A; tl2 20:10 BP 94 / 51; Pulse 115; Resp 23; Temp 100.8(O); Pulse Ox 90% on R/A; tl2 21:00 BP 105 / 78; Pulse 106; Resp 16; Pulse Ox 97% on 2 lpm NC; tl2 22:08 BP 91 / 57; Pulse 107; Resp 18; Pulse Ox 97% on 2 lpm NC; tl2 22:23 BP 90 / 57; Pulse 102; Resp 18; Temp 99.3(O); Pulse Ox 97% on 4 lpm NC; tl2 23:05 BP 90 / 59; Pulse 96; Resp 18; Pulse Ox 97% on 3 lpm NC; tl2 MDM: 18:29 Patient medically screened. jr8 19:01 Differential diagnosis: Sepsis. Data reviewed: vital signs, nurses notes, EKG. jr8 Awaiting: labs results, X-ray results. 22:14 Data reviewed: lab test result(s), radiologic studies, CT scan, plain films. Data jr8 interpreted: Pulse oximetry: on room air is 97 %. Interpretation: normal. Counseling: I had a detailed discussion with the patient and/or guardian regarding: the historical points, exam findings, and any diagnostic results supporting the discharge/admit diagnosis, lab results, radiology results, the need for further work-up and treatment in the hospital. Physician consultation: Constantino Araiza MD was called at 22:14, was contacted at 22:14, regarding admission, to the telemetry unit. consult, patient's condition, and will see patient. 07/18 18:38 Order name: Basic Metabolic Panel; Complete Time: 19:41 07/18 18:38 Order name: Blood Culture Adult (2) 07/18 18:38 Order name: CBC with Diff; Complete Time: 19:52 07/18 18:38 Order name: Lactate; Complete Time: 19:36 07/18 18:38 Order name: LFT's; Complete Time: 19:41 07/18 18:38 Order name: Lipase; Complete Time: 19:41 07/18 18:38 Order name: Procalcitonin; Complete Time: 19:48 07/18 18:38 Order name: Protime (+inr); Complete Time: 19:33 07/18 18:38 Order name: Ptt, Activated; Complete Time: 19:33 07/18 18:38 Order name: Troponin (emerg Dept Use Only); Complete Time: 19:41 8 07/18 18:38 Order name: Urine Microscopic Only 8 07/18 19:48 Order name: Manual Differential; Complete Time: 19:52 EDMS 07/18 23:31 Order name: CBC with Automated Diff EDMS 07/18 23:31 Order name: CBC with Automated Diff EDMS 07/18 18:38 Order name: Chest Single View XRAY; Complete Time: 19:14 8 07/18 20:17 Order name: CT Chest W/ Con; Complete Time: 21:42 8 07/18 23:31 Order name: Comprehensive Metabolic Panel EDMS 07/18 23:31 Order name: Comprehensive Metabolic Panel EDMS 07/18 23:31 Order name: Lipid Profile EDMS 07/18 23:31 Order name: Lipid Profile EDMS 07/18 23:31 Order name: Magnesium EDMS 07/18 23:31 Order name: Magnesium EDMS 07/18 23:31 Order name: Phosphorus EDMS 07/18 23:32 Order name: Phosphorus EDMS 07/18 23:32 Order name: Protime (+INR) EDMS 07/18 23:32 Order name: Protime (+INR) EDMS 07/18 23:32 Order name: PTT, Activated Partial Thromb EDMS 07/18 23:32 Order name: PTT, Activated Partial Thromb EDMS 07/18 23:36 Order name: Chest Lateral Decubitus EDMS 07/19 01:24 Order name: Urine Dipstick--Ancillary (enter results) nh5 07/18 18:38 Order name: Accucheck; Complete Time: 19:10 07/18 18:38 Order name: Cardiac monitoring; Complete Time: 19:10 07/18 18:38 Order name: EKG - Nurse/Tech; Complete Time: 19:10 07/18 18:38 Order name: IV Saline Lock - Large Bore; Complete Time: 19:10 07/18 18:38 Order name: Labs collected and sent; Complete Time: 19:10 07/18 18:38 Order name: O2 Per Protocol; Complete Time: 19:10 07/18 18:38 Order name: O2 Sat Monitoring; Complete Time: 19:10 07/18 18:38 Order name: Urine Dipstick-Ancillary (obtain specimen); Complete Time: 00:31 jr8 07/18 23:31 Order name: CONS Physician Consult EDAZ 07/18 23:31 Order name: NPO EDAZ EC:02 Rate is 116 beats/min. Rhythm is regular. IL interval is normal. QRS interval is jr8 normal. T waves are Normal. No ST changes noted. Interpreted by me. Reviewed by me. Administered Medications: 19:19 Drug: NS 0.9% (30 ml/kg) 30 ml/kg {Note: first liter started at 1919.} Route: IV; Rate: tl2 bolus; Site: right antecubital; 20:21 Follow up: 2nd liter started at 2014 tl2 22:00 Follow up: IV Status: Completed infusion; IV Intake: 2000ml tl2 19:19 Drug: Zosyn 3.375 grams Route: IVPB; Infused Over: 60 mins; Site: right antecubital; tl2 20:00 Follow up: IV Status: Completed infusion; IV Intake: 100ml tl2 19:19 Drug: Zofran 4 mg Route: IVP; Site: right antecubital; tl2 20:00 Follow up: Response: No adverse reaction; Nausea is decreased tl2 19:37 Drug: Tussionex Pennkinetic ER 5 ml Route: PO; tl2 20:20 Follow up: Response: No adverse reaction; Marked relief of symptoms tl2 20:25 Drug: Tylenol 650 mg Route: PO; tl2 22:00 Follow up: Response: No adverse reaction; Temperature is decreased tl2 Disposition: 07/19 09:08 Co-signature as Attending Physician, Balta Ponce MD I agree with the assessment and [facility] plan of care. Disposition: 07/18/18 22:15 Hospitalization ordered by Constantino Araiza for Inpatient Admission. Preliminary diagnosis are Neutropenia, Fever, unspecified. - Bed requested for Telemetry/MedSurg (Inpatient). - Status is Inpatient Admission. tl2 - Condition is Stable. - Problem is new. - Symptoms have improved. UTI on Admission? No Signatures: Dispatcher [employer] EDAZ Siomara Harris RN RN dw Anderson, Corey, MD MD cha Calderon, Audri RN RN aa5 Regino Ramos PA PA jr8 Siri Yip RN RN tl2 Cameron Blunt, RN RN bp Corrections: (The following items were deleted from the chart) 07/18 22:41 22:15 Hospitalization Ordered by Constantino Araiza MD for Inpatient Admission. Preliminary dw diagnosis is Neutropenia; Fever, unspecified. Bed requested for Telemetry/MedSurg (Inpatient). Status is Inpatient Admission. Condition is Stable. Problem is new. Symptoms have improved. UTI on Admission? No. jr8 07/19 01:19 07/18 22:41 07/18/2018 22:15 Hospitalization Ordered by Constantino Araiza MD for Inpatient dw Admission. Preliminary diagnosis is Neutropenia; Fever, unspecified. Bed requested for [facility] ER HOLD. Status is Inpatient Admission. Condition is Stable. Problem is new. Symptoms have improved. UTI on Admission? No. dw 07/19 01:58 01:19 07/18/2018 22:15 Hospitalization Ordered by Constantino Araiza MD for Inpatient tl2 Admission. Preliminary diagnosis is Neutropenia; Fever, unspecified. Bed requested for Telemetry/MedSurg (Inpatient). Status is Inpatient Admission. Condition is Stable. Problem is new. Symptoms have improved. UTI on Admission? No. dw
[2018-07-18] MEDS ORDERED: ONDANSETRON 4 MG/2 ML VIAL IV PRN (23:25)
--- NOTE | 2018-07-18 23:25 | P.HP ---
Certification for Inpatient Patient admitted to: Inpatient With expected LOS: >2 Midnights Patient will require the following post-hospital care: None Practitioner: I am a practitioner with admitting privileges, knowledge of patient current condition, hospital course, and medical plan of care. Services: Services provided to patient in accordance with Admission requirements found in Title 42 Section 412.3 of the Code of Federal Regulations Patient History Date of Service: 07/19/18 Reason for admission: SHORTNESS OF BREATH; HYPERGLYCEMIA History of Present Illness: PATIENT IS A 57-YEAR-OLD GENTLEMAN CAME TO THE HOSPITAL WITH SHORTNESS OF BREATH. PATIENT WAS FOUND TO HAVE A SLIGHT FEVER WELL LEUKOPENIA. PATIENT'S SHORTNESS OF BREATH WAS CAUSED BY A PLEURAL EFFUSION ON THE RIGHT SIDE. THIS COULD BE LOCULATED. IT IS NOT FREELY MOBILE. WILL GET RADIOLOGY INPUT AT THIS TIME. THEN WE WILL ALSO GET INTERVENTIONAL RADIOLOGY FOR THORACENTESIS & PULMONARY CONSULTATION WELL. Allergies No Known Allergies Allergy (Unverified 07/18/18 23:33) Home Medications: Acyclovir [Zovirax] 400 mg PO BID 07/18/18 Allopurinol [Zyloprim*] 300 mg PO DAILY 07/18/18 Amlodipine [Norvasc*] 5 mg PO DAILY 07/18/18 Ciprofloxacin/Ciprofloxa HCl [Ciprofloxacin 500 mg ER Tablet] 500 mg PO DAILY Entecavir [Baraclude] 0.5 mg PO DAILY 07/18/18 Folic Acid 1 mg PO DAILY 07/18/18 Ondansetron HCl [Zofran] 4 mg PO PRN 07/18/18 Pantoprazole [Protonix Tab*] 40 mg PO DAILY 07/18/18 - Past Medical/Surgical History -: PLEURAL EFFUSION -: LYMPHOMA -: HYPERTENSION -: GOUTY ARTHROPATHY Past Surgical History: Reviewed- Non-Contributory - Family History Father Family History: Reviewed- Non-Contributory - Social History Smoking therapy provided: Yes Alcohol use: No CD- Drugs: No Physical Examination - Studies Laboratory Data (last 24 hrs) 07/18/18 19:05: PT 15.0 H, INR 1.28, APTT 28.3 07/18/18 19:05: WBC 1.6 L*, Hgb 10.9 L, Hct 32.3 L, Plt Count 194 07/18/18 19:05: Sodium 136, Potassium 3.6, BUN 17, Creatinine 0.86, Glucose 104 , Total Bilirubin 0.6, AST 24, ALT 50, Alkaline Phosphatase 108, Lipase 117 Assessment & Plan - Advance Directives Does patient have a Living Will: No Does patient have a Durable POA for Healthcare: No
[2018-07-18] MEDS ORDERED: NA CHLORIDE 0.9% 1,000 ML IV SCH (23:45)
[2018-07-18] MEDS ORDERED: VANCOMYCIN 1.25 GM in NA CHLORIDE 0.9% 250 ML IVPB SCH (23:45)
[2018-07-18] MEDS ORDERED: Levofloxacin 750mg IV 750 MG/150 ML BAG IV SCH (23:45)
[2018-07-19] MEDS ORDERED: Levofloxacin500mg IV 0 MG/0 ML BAG IV ONE (00:45)
[2018-07-19] MEDS ORDERED: NA CHLORIDE 0.9% 1,000 ML ONE (00:45)
[2018-07-19] MEDS ORDERED: VANCOMYCIN 1 GM/VIAL ONE ×2 (00:45→00:54)
[2018-07-19] MEDS ORDERED: NA CHLORIDE 0.9% 250 ML ONE (00:45)
[2018-07-19 02:22] VITALS: BMI 25.2
[2018-07-19] MEDS: IPRATROPIUM BROM 0.5MG/2.5ML NEB SCH ×4 (02:45→20:00)
[2018-07-19] MEDS: ALBUTEROL 2.5 MG/3 ML NEB SOL NEB SCH ×4 (02:46→20:00)
[2018-07-19 03:07] LABS: Urine Culture Reflex Order NOT NEEDED; Urine RBC <5 /HPF (NONE SEEN)
[2018-07-19] MEDS: HYDROCODONE/CHLORPHEN 5 ML/OSYR PO PRN ×2 (03:07→18:38)
[2018-07-19 03:08] LABS: Urine Bacteria <20 /HPF (NONE SEEN)
[2018-07-19 05:20] LABS: Urine Blood NEGATIVE (NEG); Urine Glucose NEGATIVE (NEG); Urine Specific Gravity 1.015 (1.005-1.030)
[2018-07-19 05:21] LABS: Urine Protein 1+ (NEG)
--- NOTE | 2018-07-19 05:44 | P.HP ---
Certification for Inpatient Patient admitted to: Inpatient With expected LOS: >2 Midnights Patient will require the following post-hospital care: None Practitioner: I am a practitioner with admitting privileges, knowledge of patient current condition, hospital course, and medical plan of care. Services: Services provided to patient in accordance with Admission requirements found in Title 42 Section 412.3 of the Code of Federal Regulations Patient History Date of Service: 07/19/18 Reason for admission: SHORTNESS OF BREATH; HYPERGLYCEMIA History of Present Illness: PATIENT IS A 57-YEAR-OLD GENTLEMAN CAME TO THE HOSPITAL WITH SHORTNESS OF BREATH. PATIENT WAS FOUND TO HAVE A SLIGHT FEVER WELL LEUKOPENIA. PATIENT'S SHORTNESS OF BREATH WAS CAUSED BY A PLEURAL EFFUSION ON THE RIGHT SIDE. THIS COULD BE LOCULATED. IT IS NOT FREELY MOBILE. WILL GET RADIOLOGY INPUT AT THIS TIME. THEN WE WILL ALSO GET INTERVENTIONAL RADIOLOGY FOR THORACENTESIS & PULMONARY CONSULTATION WELL. Allergies No Known Allergies Allergy (Unverified 07/18/18 23:33) Home Medications: Acyclovir [Zovirax] 400 mg PO BID 07/18/18 Allopurinol [Zyloprim*] 300 mg PO DAILY 07/18/18 Amlodipine [Norvasc*] 5 mg PO DAILY 07/18/18 Ciprofloxacin/Ciprofloxa HCl [Ciprofloxacin 500 mg ER Tablet] 500 mg PO DAILY Entecavir [Baraclude] 0.5 mg PO DAILY 07/18/18 Folic Acid 1 mg PO DAILY 07/18/18 Ondansetron HCl [Zofran] 4 mg PO PRN 07/18/18 Pantoprazole [Protonix Tab*] 40 mg PO DAILY 07/18/18 - Past Medical/Surgical History Has patient received pneumonia vaccine in the past: No Diabetic: No -: PLEURAL EFFUSION -: LYMPHOMA -: HYPERTENSION -: GOUTY ARTHROPATHY -: port-a-cath (chemo) - Family History Father Family History: Reviewed- Non-Contributory - Social History Smoking Status: Former smoker Alcohol use: No CD- Drugs: No Review of Systems 10-point ROS is otherwise unremarkable Physical Examination - Vital Signs Temperature: 98.3 F Blood Pressure: 96/69 Pulse: 86 Respirations: 18 Pulse Ox (%): 98 - Physical Exam General: Alert, In no apparent distress, Oriented x3 HEENT: Atraumatic, PERRLA, Mucous membr. moist/pink, EOMI, Sclerae nonicteric Neck: Supple, 2+ carotid pulse no bruit, No LAD, Without JVD or thyroid abnormality Respiratory: Crackles/rales, Expiratory wheezes Cardiovascular: Regular rate/rhythm, Normal S1 S2, No murmurs Gastrointestinal: Normal bowel sounds, Soft and benign, Non-distended, No tenderness Musculoskeletal: No clubbing, No swelling ( THE THE), No tenderness Integumentary: No rashes Neurological: Normal gait, Normal speech, Normal strength at 5/5 x4 extr, Normal tone, Sensation intact, Cranial nerves 3-12 intact, Normal affect Lymphatics: No axilla or inguinal lymphadenopathy - Studies Laboratory Data (last 24 hrs) 07/18/18 19:05: PT 15.0 H, INR 1.28, APTT 28.3 07/18/18 19:05: WBC 1.6 L*, Hgb 10.9 L, Hct 32.3 L, Plt Count 194 07/18/18 19:05: Sodium 136, Potassium 3.6, BUN 17, Creatinine 0.86, Glucose 104 , Total Bilirubin 0.6, AST 24, ALT 50, Alkaline Phosphatase 108, Lipase 117 Assessment & Plan - Problems (Diagnosis) (1) Pleural effusion Current Visit: Yes Status: Acute (2) Pneumonia Current Visit: Yes Status: Acute (3) Neutropenic fever Current Visit: Yes Status: Acute - Plan PLAN: 1. CONTINUE WITH IV ANTIBIOTICS 2. AWAITING SPUTUM AND BLOOD CULTURE; PROCALCITONIN LEVEL 3. REPEAT CHEST X-RAY IN AM 4. IV HYDRATION 5. CONSULTATION WITH PULMONARY 6. CONTINUE WITH NEBS NEEDED 7. O2 PER PROTOCOL 8. OOB AND AMBULATE 9. REPEAT LABS INCLUDING CBC AND RENAL FUNCTION IN A.M. 10. GI AND DVT PROPHYLAXIS Discharge Plan: Home Plan to discharge in: Greater than 2 days - Advance Directives Does patient have a Living Will: No Does patient have a Durable POA for Healthcare: No - Code Status/Comfort Care Code Status Assessed: Yes Code Status: Full Code Critical Care: No Time Spent Managing PTS Care (In Minutes): 40
[2018-07-19] MEDS ORDERED: PIPERACIL/TAZO 3.375 GM VIAL IV ONE (06:15)
[2018-07-19] MEDS ORDERED: NA CHLORIDE 0.9% 100 ML ONE (06:15)
[2018-07-19] MEDS: PIPER/TAZO/NS 3.375gm 3.375 GM/100 ML BAG IVPB SCH ×3 (06:17→16:26)
[2018-07-19 06:18] LABS: Absolute Lymphocytes (CBC) 0.6 K/uL (0.7-4.9); Absolute Monocytes 0.1 K/uL (0.1-1.3); Absolute Neutrophil 0.2 K/uL (1.8-8.0); Basophils % 0.7 % (0-1.3); Eosinophils % 5.7 % (0-4.4); Hematocrit 26.4 % (39.6-49.0); MPV 7.5 fL (7.6-11.3); Monocytes % 8.2 % (3.3-12.3); RBC Red Blood Cell Count 3.19 M/uL (4.33-5.43)
[2018-07-19 06:29] LABS: Protime INR 1.28
[2018-07-19 06:45] LABS: ALT/SGPT 39 U/L (12-78); AST/SGOT 21 U/L (15-37); Albumin 2.1 g/dL (3.4-5.0); Alkaline Phosphatase 85 U/L (45-117); BUN Blood Urea Nitrogen 12 mg/dL (7-18); Bicarbonate 26 mmol/L (21-32); Bilirubin Total 0.6 mg/dL (0.2-1.0); Glucose Level 91 mg/dL (74-106); HDL Cholesterol 30 mg/dL (40-60); LDL Cholesterol, Calculated 89 (<130); Magnesium 1.7 mg/dL (1.8-2.4); Phosphorus 2.3 mg/dL (2.5-4.9); Potassium 3.4 mmol/L (3.5-5.1); Protein, Total 5.8 g/dL (6.4-8.2); Sodium Level 139 mmol/L (136-145)
[2018-07-19 06:55] LABS: Blood Morphology Comment NOT SEEN (NOT SEEN); Platelet Estimate ADEQ; Urine White Blood Cell Casts OK
[2018-07-19] MEDS: NA CHLORIDE 0.9% 1,000 ML IV SCH ×2 (07:00→15:00)
[2018-07-19] MEDS ORDERED: MAGNESIUM SULFATE 1 gm IVPB 1 GM/100 ML BAG IV ONE (08:00)
--- NOTE | 2018-07-19 08:16 | EKG ---
Test Date: 2018-07-18 Test Time: 18:54:02 Fashion Marketer: ROBERTO MEASUREMENT RESULTS: Intervals: Rate: 116 NC: 124 QRSD: 66 QT: 280 QTc: 389 [place]: P: 51 NC: 124 QRS: 46 T: -14 INTERPRETIVE STATEMENTS: Sinus tachycardia Nonspecific T wave abnormality Abnormal ECG Compared to ECG 06/01/2018 18:25:05 T-wave abnormality now present Sinus rhythm no longer present Electronically Signed On 07-19-18 08:15:48 CDT by Josiah Enriquez
--- NOTE | 2018-07-19 08:41 | RAD REPORT ---
EXAM DESCRIPTION: RAD - Chest Lateral Decubitus - 07/19/2018 8:22 am CLINICAL HISTORY: loculated pleural effusion COMPARISON: Chest Single View dated 07/18/2018 FINDINGS: The loculated right pleural effusion is seen, moderate to large in size. Small amount laye ring fluid component is seen. The greatest depth of the layering component measures 4 cm.
--- NOTE | 2018-07-19 08:42 | P.CNS ---
Date of Consult: 07/19/18 Chief Complaint: SHORTNESS OF BREATH; HYPERGLYCEMIA pleural effusion History of Present Illness: Patient is 57 years of age A is been treated with lymphoma last chemotherapy was at [facility] on Thursday patient has a history of right-sided pleural effusion has undergone thoracentesis before this admission was precipitated by a 3 day history of worsening cough shortness of breath fever apparently he was scheduled to have a thoracentesis done at [facility] on the of this month then no other cardiopulmonary problems apart from a hypertension patient is neutropenia from his chemotherapy discussed with the patient Allergies No Known Allergies Allergy (Unverified 07/18/18 23:33) Home Medications: Acyclovir [Zovirax] 400 mg PO BID 07/18/18 Allopurinol [Zyloprim*] 300 mg PO DAILY 07/18/18 Amlodipine [Norvasc*] 5 mg PO DAILY 07/18/18 Ciprofloxacin/Ciprofloxa HCl [Ciprofloxacin 500 mg ER Tablet] 500 mg PO DAILY Entecavir [Baraclude] 0.5 mg PO DAILY 07/18/18 Folic Acid 1 mg PO DAILY 07/18/18 Ondansetron HCl [Zofran] 4 mg PO PRN 07/18/18 Pantoprazole [Protonix Tab*] 40 mg PO DAILY 07/18/18 - Past Medical/Surgical History Diabetic: No -: PLEURAL EFFUSION -: LYMPHOMA with a percutaneous drain in the hepatic region -: HYPERTENSION -: GOUTY ARTHROPATHY -: port-a-cath (chemo) - Family History Father Family History: Reviewed- Non-Contributory - Social History Alcohol use: No CD- Drugs: No Caffeine use: Yes Place of Residence: Home Physical Examination Temp Pulse Resp BP Pulse Ox 98.3 F 86 18 96/69 98 07/19/18 05:43 07/19/18 05:43 07/19/18 05:43 07/19/18 05:43 07/19/18 05:43 General: Alert, In no apparent distress HEENT: Atraumatic Neck: Supple Respiratory: Diminished (Diminished air entry on the right side) Cardiovascular: No edema, Regular rate/rhythm Gastrointestinal: Normal bowel sounds, Soft and benign, Other (Patient has a percutaneous catheter) Laboratory Data (last 24 hrs) 07/18/18 19:05: PT 15.0 H, INR 1.28, APTT 28.3 07/18/18 19:05: WBC 1.6 L*, Hgb 10.9 L, Hct 32.3 L, Plt Count 194 07/18/18 19:05: Sodium 136, Potassium 3.6, BUN 17, Creatinine 0.86, Glucose 104 , Total Bilirubin 0.6, AST 24, ALT 50, Alkaline Phosphatase 108, Lipase 117 - Problems (1) Pleural effusion Current Visit: Yes Status: Acute Plan: Patient is 57 years of age diagnosed with lymphoma involving the liver has a percutaneous drain on chemotherapy admitted with a slight fever shortness of breath he does have a significant effusion on the right side patient evaluated at [facility] in [place] was scheduled to have a thoracentesis done and recent chemotherapy as scheduled him for a thoracentesis probably discharged after that I strongly suspect that this is induced by he has lymphoma low white count and hemoglobin is probably from his chemo vital signs all reviewed possible discharge tomorrow
[2018-07-19] MEDS ORDERED: KCL 20 MEQ/100 mL IVPB 20 MEQ/100 ML BAG IV SCH (09:00)
[2018-07-19] MEDS ORDERED: ENOXAPARIN 40 MG/0.4 ML SQ SCH (09:00)
[2018-07-19] MEDS ORDERED: POTASSIUM PHOS IN 0.9 % NACL 15 MMOL/250 ML BAG IV ONE (09:00)
--- NOTE | 2018-07-19 09:54 | RAD REPORT ---
EXAM DESCRIPTION: US - Chest - 07/19/2018 8:35 am CLINICAL HISTORY: Evalauate for thoracentesis and locualtions Right pleural effusion, chest pain COMPARISON: Chest Lateral Decubitus dated 07/19/2018 FINDINGS: Posterior right chest wall sonography was performed to assess size and loculation of the r ight pleural effusion. A moderate right pleural effusion is seen. The loculations detected are minima l.
[2018-07-19] MEDS: TBO-FILGRASTIM 300 MCG/0.5 ML SYR SQ SCH (10:14)
--- NOTE | 2018-07-19 10:24 | RAD REPORT ---
EXAM DESCRIPTION: US - Thoracentesis w/ US Guide - 07/19/2018 9:40 am CLINICAL HISTORY: Pleural effusion. pleural effusion COMPARISON: No comparisons FINDINGS: Preoperative diagnosis: Right pleural effusion Post operative diagnosis: Same Conscious Sedation: None. Estimated blood loss: Minimal Specimens:A small volume of fluid was sent for requested lab studies. The patient was placed in the upright recumbent position and the right posterior chest was prepped an d draped in the usual sterile fashion. 1% Lidocaine was infiltrated into the soft tissues for local anesthesia. Under sonographic guidance, a thoracentesis needle and 6 Khmer catheter was advanced in to the right pleural space. Approximately 1 liter yellow fluid was aspirated. Samples were sent to pa thology for requested analysis. The patient tolerated the procedure without immediate complication an d transferred to the floor in stable condition. IMPRESSION: Successful ultrasound-guided thoracentesis as detailed.
[2018-07-19 11:56] LABS: Body Fluid WBC 971 /mm^3
[2018-07-19 11:58] LABS: Appearance SLT. TURBID (CLEAR); Body Fluid Source PLEURAL; Color of fluid Yellow (COLORLESS)
[2018-07-19] MEDS: VANCOMYCIN 1.25 GM in NA CHLORIDE 0.9% 250 ML IVPB SCH (12:47)
--- NOTE | 2018-07-19 13:29 | RAD REPORT ---
EXAM DESCRIPTION: RAD - Chest Single View - 07/19/2018 1:23 pm CLINICAL HISTORY: rule out pneumothorax, post thoracentesis Chest pain. COMPARISON: Chest Single View dated 07/18/2018; Chest Single View dated 06/01/2018 FINDINGS: Portable technique limits examination quality. Right pleural effusion is again noted, mildly decreased in size since comparative study. No pneumotho rax evident. The heart is normal in size. Right-sided port catheter tip in the SVC.
--- NOTE | 2018-07-19 15:41 | P.PN ---
Subjective Date of Service: 07/19/18 Primary Care Provider: EVA Odonnell [facility] Oncology Chief Complaint: SHORTNESS OF BREATH; HYPERGLYCEMIA pleural effusion Subjective: Improving Physical Examination - Vital Signs Temperature: 98.7 F Blood Pressure: 99/55 Pulse: 108 Respirations: 18 Pulse Ox (%): 98 - Physical Exam General: Alert, In no apparent distress, Oriented x3 HEENT: Atraumatic Neck: Supple Respiratory: Crackles/rales (Crackles to the bases but improved aeration after thoracentesis) Cardiovascular: Abnormal pulses (Minimal sinus tachycardia ) Gastrointestinal: Normal bowel sounds, Soft and benign, Non-distended Neurological: Normal speech, Normal strength at 5/5 x4 extr, Normal tone - Studies Laboratory Data (last 24 hrs) 07/18/18 19:05: PT 15.0 H, INR 1.28, APTT 28.3 07/18/18 19:05: WBC 1.6 L*, Hgb 10.9 L, Hct 32.3 L, Plt Count 194 07/18/18 19:05: Sodium 136, Potassium 3.6, BUN 17, Creatinine 0.86, Glucose 104 , Total Bilirubin 0.6, AST 24, ALT 50, Alkaline Phosphatase 108, Lipase 117 Medications List Reviewed: Yes Assessment & Plan Discharge Plan: Home Plan to discharge in: 24 Hours Physician Review Additional Text: Impression: Large right pleural effusion status post thoracentesis with history of prior thoracentesis Patient with history of lymphoma Neutropenia with fever History hypertension Plan: Large right pleural effusion status post thoracentesis with history of prior thoracentesis: Patient seen and evaluated by pulmonology. Pulmonology agrees with thoracentesis. Patient had thoracenteses earlier. Over a L fluid removed. Will continue to monitor closely. Will maintain sats above 90%. Will reassess tomorrow. Monitor CBC and BMP. Recheck chest x-ray in the morning. Anticipate possible discharge as early as tomorrow. Patient with history of lymphoma: Patient had recent chemotherapy. This was his 2nd chemotherapy. Patient to follow up with Oncology in [place]. Neutropenia with fever: Continue with broad-spectrum IV antibiotic therapy. Blood cultures obtained and still pending. No bacteria noted from fluid obtained from thoracentesis. Patient has remained afebrile. Will cover with his antiviral medication. Continue with Granix until neutropenia resolved. Continue monitor CBC. History of hypertension: Blood pressures remains stable off medication. Will continue to monitor off medication. Time Spent Managing Pts Care (In Minutes): 55
[2018-07-19] MEDS: NACHLORIDE 0.45% 1,000 ML IV SCH (16:00)
[2018-07-19] MEDS: ENOXAPARIN 30 MG/0.3 ML SQ SCH (16:27)
[2018-07-19] MEDS: ACETAMINOPHEN 500 MG TAB PO PRN (18:29)
[2018-07-19] MEDS: ACYCLOVIR 400 MG TABLET PO SCH (20:37)
[2018-07-20] MEDS: VANCOMYCIN 1.25 GM in NA CHLORIDE 0.9% 250 ML IVPB SCH ×3 (00:01→23:53)
[2018-07-20] MEDS: PIPER/TAZO/NS 3.375gm 3.375 GM/100 ML BAG IVPB SCH ×3 (01:37→18:21)
[2018-07-20] MEDS: IPRATROPIUM BROM 0.5MG/2.5ML NEB SCH ×4 (02:00→19:34)
[2018-07-20] MEDS: ALBUTEROL 2.5 MG/3 ML NEB SOL NEB SCH ×4 (02:00→19:34)
[2018-07-20 05:31] LABS: Absolute Lymphocytes (CBC) 1.1 K/uL (0.7-4.9); Absolute Monocytes 0.2 K/uL (0.1-1.3); Absolute Neutrophil 0.3 K/uL (1.8-8.0); Basophils % 0.7 % (0-1.3); Hematocrit 25.3 % (39.6-49.0); Lymphocytes % 67.4 % (15.3-44.8); MPV 7.4 fL (7.6-11.3); RBC Red Blood Cell Count 3.09 M/uL (4.33-5.43)
[2018-07-20] MEDS: PANTOPRAZOLE 40MG TABLET PO SCH (05:47)
[2018-07-20 05:50] LABS: BUN Blood Urea Nitrogen 6 mg/dL (7-18); Bicarbonate 28 mmol/L (21-32); Glucose Level 94 mg/dL (74-106); Magnesium 1.9 mg/dL (1.8-2.4); Phosphorus 2.8 mg/dL (2.5-4.9); Potassium 3.3 mmol/L (3.5-5.1); Sodium Level 137 mmol/L (136-145)
[2018-07-20] MEDS: ACETAMINOPHEN 500 MG TAB PO PRN (06:43)
[2018-07-20] MEDS: KCL 20 MEQ/100 mL IVPB 20 MEQ/100 ML BAG IV SCH ×2 (06:44→11:06)
[2018-07-20] MEDS: NACHLORIDE 0.45% 1,000 ML IV SCH ×2 (07:26→12:00)
--- NOTE | 2018-07-20 10:51 | RAD REPORT ---
EXAM DESCRIPTION: Harshad Pa And Lat (2 Views)07/20/2018 8:35 am CLINICAL HISTORY: Cough COMPARISON: July 19 FINDINGS: A pneumothorax is not seen status post right thoracentesis. Right pleural effusion is decr eased in size.
[2018-07-20] MEDS: FOLIC ACID 1 MG TABLET PO SCH (11:07)
[2018-07-20] MEDS: TBO-FILGRASTIM 300 MCG/0.5 ML SYR SQ SCH (11:07)
[2018-07-20] MEDS: ALLOPURINOL 300 MG TAB PO SCH (11:07)
[2018-07-20] MEDS: ACYCLOVIR 400 MG TABLET PO SCH ×2 (11:07→21:28)
--- NOTE | 2018-07-20 12:13 | P.PN ---
Subjective Date of Service: 07/20/18 Primary Care Provider: EVA [facility] Oncology Chief Complaint: Status post thoracentesis mild fever Subjective: Improving (Patient is improving still has a borderline temperature status post thoracentesis lymphocytic predominant effusion no evidence of a pleural infection) Review of Systems General: Weakness Respiratory: Shortness of Breath Physical Examination - Vital Signs Temperature: 98.4 F Blood Pressure: 98/57 Pulse: 96 Respirations: 18 Pulse Ox (%): 100 - Physical Exam General: Alert, Oriented x3 Neck: Supple Respiratory: Diminished (Diminished on the right side) Cardiovascular: No edema, Normal S1 S2 - Studies Medications List Reviewed: Yes Assessment & Plan - Problems (Diagnosis) (1) Pleural effusion Current Visit: Yes Status: Acute Plan: Patient is 57 years of age admitted with slight fever shortness of breath status post thoracentesis lymphocytic predominant effusion so far Gram stain and cultures are negative on the pleural fluid chemistries are pending is a send out test is pro calcitonin level is negative S is clinically stable possible discharge tomorrow evaluate for home O2 he is to follow up at [facility] flow cytometry has been sent on the pleural fluid discuss with pathology audible discharge tomorrow on Augmentin Physician Review Additional Text: Impression: Large right pleural effusion status post thoracentesis with history of prior thoracentesis Patient with history of lymphoma Neutropenia with fever History hypertension Plan: Large right pleural effusion status post thoracentesis with history of prior thoracentesis: Patient seen and evaluated by pulmonology. Pulmonology agrees with thoracentesis. Patient had thoracenteses earlier. Over a L fluid removed. Will continue to monitor closely. Will maintain sats above 90%. Will reassess tomorrow. Monitor CBC and BMP. Recheck chest x-ray in the morning. Anticipate possible discharge as early as tomorrow. Patient with history of lymphoma: Patient had recent chemotherapy. This was his 2nd chemotherapy. Patient to follow up with Oncology in [place]. Neutropenia with fever: Continue with broad-spectrum IV antibiotic therapy. Blood cultures obtained and still pending. No bacteria noted from fluid obtained from thoracentesis. Patient has remained afebrile. Will cover with his antiviral medication. Continue with Granix until neutropenia resolved. Continue monitor CBC. History of hypertension: Blood pressures remains stable off medication. Will continue to monitor off medication.
[2018-07-20] MEDS: HYDROCODONE/CHLORPHEN 5 ML/OSYR PO PRN (13:23)
--- NOTE | 2018-07-20 13:31 | P.PN ---
Subjective Date of Service: 07/20/18 Primary Care Provider: EVA Odonnell [facility] Oncology Chief Complaint: Status post thoracentesis mild fever Subjective: Improving (Patient had T-max of 101.3) Physical Examination - Vital Signs Temperature: 98.4 F Blood Pressure: 98/57 Pulse: 96 Respirations: 18 Pulse Ox (%): 100 - Physical Exam General: Alert, In no apparent distress, Oriented x3, Cooperative HEENT: Atraumatic Neck: Supple Respiratory: Crackles/rales (Minimal crackles) Cardiovascular: Normal pulses ( to the right base), Regular rate/rhythm Gastrointestinal: No masses, No rebound, No guarding Neurological: Normal speech, Normal strength at 5/5 x4 extr, Normal tone - Studies Medications List Reviewed: Yes Assessment & Plan Discharge Plan: Home Plan to discharge in: 24 Hours Physician Review Additional Text: Impression: Large right pleural effusion status post thoracentesis with history of prior thoracentesis Patient with history of lymphoma Neutropenia with fever History hypertension Plan: Large right pleural effusion status post thoracentesis with history of prior thoracentesis: Patient improving. Repeat x-ray shows improvement in right pleural effusion after thoracentesis. No pneumothorax noted patient had T-max of 101.3. Will continue to monitor closely. So far blood cultures negative. Case discussed with pulmonology. Consulted Hematology/Oncology for further recommendation. Case discussed with oncology. Will continue with current plan of care. Patient will need to be discharged with antibiotics and antiviral medication as previous. Anticipate discharge in the next 24 hr once white count improved and afebrile for at least 24 hr. Will need to wean off oxygen. Patient with history of lymphoma: Patient had recent chemotherapy. This was his 2nd chemotherapy. Patient to follow up with Oncology in [place]. Neutropenia with fever: Continue with broad-spectrum IV antibiotic therapy. Blood cultures so far negative. Blood cultures obtained and still pending. No bacteria noted from fluid obtained from thoracentesis. Await culture results from thoracentesis. Continue as above. Continue with medication to help with neutropenia. History of hypertension: Blood pressures remains stable off medication. Will continue to monitor off medication. Patient no longer tachycardic. Continue IV fluids. Time Spent Managing Pts Care (In Minutes): 55
[2018-07-20] MEDS: ENOXAPARIN 30 MG/0.3 ML SQ SCH (18:21)
[2018-07-21] MEDS ORDERED: POTASSIUM 25 MEQ EFFERV TAB PO ONE (01:05)
[2018-07-21] MEDS: PIPER/TAZO/NS 3.375gm 3.375 GM/100 ML BAG IVPB SCH ×2 (01:35→09:52)
[2018-07-21] MEDS: ALBUTEROL 2.5 MG/3 ML NEB SOL NEB SCH ×4 (01:52→14:00)
[2018-07-21] MEDS: IPRATROPIUM BROM 0.5MG/2.5ML NEB SCH ×4 (01:52→14:00)
[2018-07-21 03:15] VITALS: O2SAT 98
[2018-07-21] MEDS: PANTOPRAZOLE 40MG TABLET PO SCH (05:18)
[2018-07-21 06:12] LABS: Absolute Lymphocytes (CBC) 1.4 K/uL (0.7-4.9); Absolute Monocytes 0.5 K/uL (0.1-1.3); Absolute Neutrophil 0.5 K/uL (1.8-8.0); Basophils % 1.3 % (0-1.3); Eosinophils % 5.1 % (0-4.4); Hematocrit 23.7 % (39.6-49.0); Lymphocytes % 53.3 % (15.3-44.8); MPV 7.4 fL (7.6-11.3); Monocytes % 19.3 % (3.3-12.3); RBC Red Blood Cell Count 2.87 M/uL (4.33-5.43)
[2018-07-21 06:22] LABS: BUN Blood Urea Nitrogen 4 mg/dL (7-18); Bicarbonate 29 mmol/L (21-32); Glucose Level 90 mg/dL (74-106); Potassium 3.6 mmol/L (3.5-5.1); Sodium Level 140 mmol/L (136-145)
--- NOTE | 2018-07-21 08:27 | RAD REPORT ---
EXAM DESCRIPTION: RAD - Chest Single View - 07/21/2018 6:57 am CLINICAL HISTORY: Follow up after thoracentesis Chest pain. COMPARISON: Chest Pa And Lat (2 Views) dated 07/20/2018; Chest Single View dated 07/19/2018; Chest Sin gle View dated 07/18/2018; Chest Single View dated 06/01/2018 FINDINGS: Portable technique limits examination quality. Moderate right pleural effusion is noted, unchanged. Right-sided port catheter its tip in the SVC. Th e left lung is grossly clear. No pneumothorax evident. The heart is normal in size. No overall change seen since 07/20/2018 study.
[2018-07-21] MEDS ORDERED: POTASSIUM CL SA 10 MEQ TAB PO ONE (09:00)
[2018-07-21 09:03] LABS: Hematocrit 24.9 % (39.6-49.0)
[2018-07-21] MEDS: TBO-FILGRASTIM 300 MCG/0.5 ML SYR SQ SCH (09:35)
[2018-07-21] MEDS: ALLOPURINOL 300 MG TAB PO SCH (09:36)
[2018-07-21] MEDS: ACYCLOVIR 400 MG TABLET PO SCH (09:36)
[2018-07-21] MEDS: FOLIC ACID 1 MG TABLET PO SCH (09:36)
[2018-07-21] MEDS: HYDROCODONE/CHLORPHEN 5 ML/OSYR PO PRN ×2 (09:46→15:56)
[2018-07-21 10:12] LABS: Platelet Estimate ADEQ
[2018-07-21 10:13] LABS: Blood Morphology Comment NOT SEEN (NOT SEEN); Dohle Bodies PRESENT; Toxic Granulation 1+
--- NOTE | 2018-07-21 11:37 | P.DS ---
Admission Date: 07/18/18 Discharge Date: 07/21/18 Primary Care Provider: PCP-[place]; [facility] Oncology also in [place] Disposition: ROUTINE DISCHARGE Discharge Condition: GOOD Reason for Admission: Status post thoracentesis mild fever Consultations: Pulmonary-Dr. Mckinney Radiology Oncology-Dr. Jhaveri Procedures: CT Chest: FINDINGS: Left lung field is clear. No left-sided pleural effusion, pleural thickening or mass. Right hemidiaphragm elevation is noted. Moderately large right pleural effusion is present. This is probably loculated. Patchy parenchymal opacification is present in the right base most likely atelectasis. No endobronchial lesion. No pneumothorax. No chest wall mass or abnormal axillary lymphadenopathy. No pericardial thickening or effusion. No abnormal mediastinal or hilar mass or lymphadenopathy seen. Limited upper abdomen imaging shows percutaneous biliary drainage. Pancreatic stent is also in place. IMPRESSION: Moderately large loculated right pleural effusion. Right lung field parenchymal stranding is most likely atelectasis and scarring change. Acute pneumonia is not entirely excluded but felt to be on likely. Left hemithorax is clear. Thorancentesis: COMPARISON: No comparisons FINDINGS: Preoperative diagnosis: Right pleural effusion Post operative diagnosis: Same Conscious Sedation: None. Estimated blood loss: Minimal Specimens:A small volume of fluid was sent for requested lab studies. The patient was placed in the upright recumbent position and the right posterior chest was prepped and draped in the usual sterile fashion. 1% Lidocaine was infiltrated into the soft tissues for local anesthesia. Under sonographic guidance, a thoracentesis needle and 6 [place] catheter was advanced into the right pleural space. Approximately 1 liter yellow fluid was aspirated. Samples were sent to pathology for requested analysis. The patient tolerated the procedure without immediate complication and transferred to the floor in stable condition. IMPRESSION: Successful ultrasound-guided thoracentesis as detailed. Follow up CXR: COMPARISON: Chest Pa And Lat (2 Views) dated 07/20/2018; Chest Single View dated 07/19/2018; Chest Single View dated 07/18/2018; Chest Single View dated 06/01 FINDINGS: Portable technique limits examination quality. Moderate right pleural effusion is noted, unchanged. Right-sided port catheter its tip in the SVC. The left lung is grossly clear. No pneumothorax evident. The heart is normal in size. No overall change seen since 07/20/2018 study. Medical problem list: Large right loculated pleural effusion status post thoracentesis with history of prior thoracentesis Anemia of chronic disease Patient with history of lymphoma Neutropenia with fever History of hypertension Suspect history of hepatitis-B Brief History of Present Illness: 57-year-old male presented emergency room with increasing shortness of breath. Patient with history of lymphoma. He gets most of his care at [facility] with oncology. Patient recently started chemotherapy. Patient also had recent thoracentesis at [facility]. Patient found to have large right pleural effusion. Patient was admitted for further evaluation and treatment. Hospital Course: Patient presented with shortness of breath. Patient with past medical history significant for lymphoma with recent chemotherapy and thoracentesis in [place]. Patient found to have large right loculated pleural effusion upon presentation. Patient was seen and evaluated by pulmonology. Pulmonology recommended thoracentesis. Radiology consulted for radiology assisted thoracentesis. This was done. Approximate 1 L fluid removed. Patient tolerated procedure well. No pneumothorax noted thereafter. Improvement of pleural effusion noted. Patient was eventually weaned off oxygen. During the course of his stay patient also presented with fever. Patient also found to be neutropenic. Case discussed with Oncology. Patient was placed on broad- spectrum IV antibiotic therapy and antiviral medication. He was also given Granix for the neutropenia. So for blood cultures negative. Fluid from thoracentesis also negative for bacteria. WBC now in normal range. At discharge patient will continue with broad-spectrum antibiotic-Levaquin 500 mg daily for 7 days and and continue with his antiviral medication-acyclovir 400 mg 1 pill twice daily. Recommend to follow up with Oncology in [place] within 1 week to follow up this hospitalization and continue his care. If pleural effusion continues to redevelop, patient may require transfer to [place] to further evaluate. Pleural effusion should improve with treatment of his lymphoma. Thorancentesis fluid pathology shows no carcinoma finding. Flow cytometry sent. This can be followed up by oncology. Recommend to recheck chest x-ray in 2-4 weeks monitor resolution. Patient with history of hypertension. Patient was taken off blood pressure medication due to low blood pressure. At discharge Norvasc discontinued. Recommend to monitor his blood pressures and vitals closely. If this pressure remains elevated as an outpatient this can be further addressed by his PCP. Patient has his PCP in [place]. Recommend to follow up with PCP within 1 week to follow up this hospitalization. Patient with GERD. Patient will continue with Protonix 40 mg daily. Patient with anemia of chronic disease. At discharge patient will continue with folic acid 1 mg daily and multi vitamin daily. Recommend to recheck lab-CBC in 1-2 weeks to monitor his progress. This can be done by his oncologist. Patient may require outpatient transfusion in the few Patient is taking Entecavir 500 mg daily I suspect for treatment of hepatitis- B. Will verify with patient. Vital Signs/Physical Exam: Temp Pulse Resp BP Pulse Ox 97.8 F 105 H 17 99/61 92 07/21/18 08:00 07/21/18 08:00 07/21/18 08:00 07/21/18 08:00 07/21/18 08:00 General: Alert, In no apparent distress, Oriented x3, Cooperative HEENT: Atraumatic Neck: Supple Respiratory: Clear to auscultation bilaterally, Normal air movement Cardiovascular: Regular rate/rhythm Gastrointestinal: Normal bowel sounds, Soft and benign, Non-distended Neurological: Normal speech, Normal strength at 5/5 x4 extr, Normal tone, Normal affect Laboratory Data at Discharge: WBC 2.5 K/uL (4.3-10.9) L D 07/21/18 05:20 Hgb 8.3 g/dL (13.6-17.9) L 07/21/18 08:49 Hct 24.9 % (39.6-49.0) L 07/21/18 08:49 Plt Count 174 K/uL (152-406) D 07/21/18 05:20 PT 15.0 SECONDS (9.5-12.5) H 07/19/18 05:25 INR 1.28 07/19/18 05:25 APTT 28.3 SECONDS (24.3-36.9) 07/19/18 05:25 Sodium 140 mmol/L (136-145) 07/21/18 05:20 Potassium 3.6 mmol/L (3.5-5.1) 07/21/18 05:20 BUN 4 mg/dL (7-18) L 07/21/18 05:20 Creatinine 0.77 mg/dL (0.55-1.3) 07/21/18 05:20 Glucose 90 mg/dL (74-106) 07/21/18 05:20 Phosphorus 2.8 mg/dL (2.5-4.9) 07/20/18 05:06 Magnesium 1.9 mg/dL (1.8-2.4) 07/20/18 05:06 Total Bilirubin 0.6 mg/dL (0.2-1.0) 07/19/18 05:25 AST 21 U/L (15-37) 07/19/18 05:25 ALT 39 U/L (12-78) 07/19/18 05:25 Alkaline Phosphatase 85 U/L (45-117) 07/19/18 05:25 Triglycerides 82 mg/dL (<150) 07/19/18 05:25 Cholesterol 135 mg/dL (<200) 07/19/18 05:25 HDL Cholesterol 30 mg/dL (40-60) L 07/19/18 05:25 Cholesterol/HDL Ratio 4.50 07/19/18 05:25 Lipase 117 U/L (73-393) 07/18/18 19:05 Home Medications: Acyclovir [Zovirax] 400 mg PO BID 07/18/18 Allopurinol [Zyloprim*] 300 mg PO DAILY 07/18/18 Entecavir [Baraclude] 0.5 mg PO DAILY 07/18/18 Folic Acid 1 mg PO DAILY 07/18/18 Ondansetron HCl [Zofran] 4 mg PO PRN 07/18/18 Pantoprazole [Protonix Tab*] 40 mg PO DAILY 07/18/18 Multivit with Iron,Minerals [Spectravite Senior] 1 each PO DAILY #30 tablet levoFLOXacin [Levaquin] 500 mg PO DAILY #7 tab 07/21/18 New Medications: levoFLOXacin [Levaquin] 500 mg PO DAILY #7 tab Multivit with Iron,Minerals [Spectravite Senior] 1 each PO DAILY #30 tablet Patient Discharge Instructions: 1. Recommend to follow up with PCP in one week. 2. Patient presented with shortness of breath. Patient with past medical history significant for lymphoma with recent chemotherapy and thoracentesis in [place]. Patient found to have large right loculated pleural effusion upon presentation. Patient was seen and evaluated by pulmonology. Pulmonology recommended thoracentesis. Radiology consulted for radiology assisted thoracentesis. This was done. Approximate 1 L fluid removed. Patient tolerated procedure well. No pneumothorax noted thereafter. Improvement of pleural effusion noted. Patient was eventually weaned off oxygen. During the course of his stay patient also presented with fever. Patient also found to be neutropenic. Case discussed with Oncology. Patient was placed on broad- spectrum IV antibiotic therapy and antiviral medication. He was also given Granix for the neutropenia with resolution. So for blood cultures negative. Fluid from thoracentesis also negative for bacteria. WBC now in normal range. At discharge patient will continue with broad-spectrum antibiotic-Levaquin 500 mg daily for 7 days and and continue with his antiviral medication-acyclovir 400 mg 1 pill twice daily. Recommend to follow up with Oncology in [place] within 1 week to follow up this hospitalization and continue his care. If pleural effusion continues to redevelop, patient may require transfer to [place] to further evaluate. Pleural effusion should improve with treatment of his lymphoma. Thorancentesis fluid pathology shows no carcinoma finding. Flow cytometry sent. This can be followed up by oncology. Recommend to recheck chest x-ray in 2-4 weeks monitor resolution. 3. Patient with history of hypertension. Patient was taken off blood pressure medication due to low blood pressure. At discharge Norvasc discontinued. Recommend to monitor his blood pressures and vitals closely. If this pressure remains elevated as an outpatient this can be further addressed by his PCP. Patient has his PCP in [place]. Recommend to follow up with PCP within 1 week to follow up this hospitalization. 4. Patient with GERD. Patient will continue with Protonix 40 mg daily. 5. Patient with anemia of chronic disease. At discharge patient will continue with folic acid 1 mg daily and multi vitamin daily. Recommend to recheck lab-CBC in 1-2 weeks to monitor his progress. This can be done by his oncologist. Patient may require outpatient transfusion in the few. 6. Patient is taking Entecavir 500 mg daily I suspect for treatment of hepatitis-B. Diet: AHA Activity: Fall precautions Time spent managing pt's care (in minutes): 55
[2018-07-21 12:39] VITALS: BP 92/63; TEMP 97.6
--- NOTE | 2018-07-21 12:52 | ECHO ---
HEIGHT: 5 ft 4 in WEIGHT: 147 lb 0 oz DATE OF STUDY: 07/21/[address]: Theodore Fu DO 2-DIMENSIONAL: YES M.MODE: YES DOPPLER: YES COLOR FLOW: YES TDS: NO PORTABLE: NO DEFINITY: NO BUBBLE STUDY: NO DIAGNOSIS: EVALUATE FOR CONGESTIVE HEART FAILURE CARDIAC HISTORY: CATHERIZATION: NO SURGERY: NO PROSTHETIC VALVE: NO PACEMAKER: NO MEASUREMENTS (cm) DIASTOLIC (NORMALS) SYSTOLIC (NORMALS) IVSd 0.9 (0.6-1.2) LA Diam 3.1 (1.9-4.0) LVEF 53% LVIDd 3.6 (3.5-5.7) LVIDs 2.7 (2.0-3.5) %FS 27% LVPWd 1.1 (0.6-1.2) Ao Diam 2.7 (2.0-3.7) 2 DIMENSIONAL ASSESSMENT: RIGHT ATRIUM: NORMAL LEFT ATRIUM: NORMAL RIGHT VENTRICLE: NORMAL LEFT VENTRICLE: NORMAL TRICUSPID VALVE: NORMAL MITRAL VALVE: NORMAL PULMONIC VALVE: NORMAL AORTIC VALVE: NORMAL PERICARDIAL EFFUSION: NONE AORTIC ROOT: NORMAL LEFT VENTRICULAR WALL MOTION: NORMAL DOPPLER/COLOR FLOW: PHYSIOLOGIC TRICUSPID REGURGITATION. NORMAL RIGHT SYSTOLIC PRESSURE. COMMENTS: NORMAL 2D ECHOCARDIOGRAM WITH DOPPLER. TECHNOLOGIST: Royce CAPPS
[2018-07-21] MEDS: VANCOMYCIN 1.25 GM in NA CHLORIDE 0.9% 250 ML IVPB SCH (13:29)
== END 2018-07-21 16:05 | disposition home or self-care (01) | DRG 186 ==
LOC: ER 18:12 → ERHOLD 23:26 → 2ND 07-19 01:44
PROVIDERS: ADMIT Hospitalist; ATTEND Family Medicine
PROC: 0W993ZX Drainage of Right Pleural Cavity, Percutaneous Approach, Diagnostic (ICD-10-PCS; principal; 2018-07-19)
DX: J90 Pleural effusion, not elsewhere classified (principal); J18.9 Pneumonia, unspecified organism; B19.10 Unspecified viral hepatitis B without hepatic coma; C85.99 Non-Hodgkin lymphoma, unspecified, extranodal and solid organ sites; D63.8 Anemia in other chronic diseases classified elsewhere; D70.9 Neutropenia, unspecified; R50.81 Fever presenting with conditions classified elsewhere; I10 Essential (primary) hypertension; K21.9 Gastro-esophageal reflux disease without esophagitis; D72.819 Decreased white blood cell count, unspecified; Z87.891 Personal history of nicotine dependence; R73.9 Hyperglycemia, unspecified
CPT/HCPCS: 32555; 36415; 71045; 71046; 71260; 76604; 80048; 80053; 80061; 80076; 80202; 81003; 81015; 83605; 83690; 83735; 84100; 84132; 84145; 84484; 85014; 85018; 85025; 85610; 85730; 87040; 87070; 88108; 88305; 89050; 93005; 93306; 94640; 94760; 96365; 96366; 96368; 96375; 99285; J1650; J2405; J2543; J3475; J7030; Q9967